=== PATIENT | male | born 1950 | race Caucasian/White ===

== ENCOUNTER → 2017-06-25 | Outpatient (CLI) | payer MEDICARE, BC | END | disposition home or self-care (01) | LOC: PMGWOUND 10:34 | PROVIDERS: ATTEND Emergency Medicine Undersea and Hyperbaric Medicine | DX: S80.821D Blister (nonthermal), right lower leg, subsequent encounter (principal); L13.9 Bullous disorder, unspecified; K21.9 Gastro-esophageal reflux disease without esophagitis; E78.5 Hyperlipidemia, unspecified; E03.9 Hypothyroidism, unspecified; J44.9 Chronic obstructive pulmonary disease, unspecified; E05.90 Thyrotoxicosis, unspecified without thyrotoxic crisis or storm; I10 Essential (primary) hypertension; Z72.89 Other problems related to lifestyle; Z87.891 Personal history of nicotine dependence; X58.XXXD Exposure to other specified factors, subsequent encounter | CPT/HCPCS: 97597; 97598 ==

== ENCOUNTER → 2017-07-02 | Outpatient (CLI) | payer MEDICARE, BC | END | disposition home or self-care (01) | LOC: PMGWOUND 10:46 | PROVIDERS: ATTEND Preventive Medicine Undersea and Hyperbaric Medicine | DX: S80.821D Blister (nonthermal), right lower leg, subsequent encounter (principal); L12.0 Bullous pemphigoid; J44.9 Chronic obstructive pulmonary disease, unspecified; I10 Essential (primary) hypertension; K21.9 Gastro-esophageal reflux disease without esophagitis; E78.5 Hyperlipidemia, unspecified; E03.9 Hypothyroidism, unspecified; Z72.89 Other problems related to lifestyle; Z87.891 Personal history of nicotine dependence; X58.XXXD Exposure to other specified factors, subsequent encounter | CPT/HCPCS: 29581; 97597; 97598 ==

== ENCOUNTER → 2017-07-23 | Outpatient (CLI) | payer MEDICARE, BC | END | disposition home or self-care (01) | LOC: PMGWOUND 10:38 | PROVIDERS: ATTEND Preventive Medicine Undersea and Hyperbaric Medicine | DX: S80.821D Blister (nonthermal), right lower leg, subsequent encounter (principal); L12.0 Bullous pemphigoid; J44.9 Chronic obstructive pulmonary disease, unspecified; I10 Essential (primary) hypertension; K21.9 Gastro-esophageal reflux disease without esophagitis; E78.5 Hyperlipidemia, unspecified; E03.9 Hypothyroidism, unspecified; E05.90 Thyrotoxicosis, unspecified without thyrotoxic crisis or storm; Z72.89 Other problems related to lifestyle; Z87.891 Personal history of nicotine dependence; X58.XXXD Exposure to other specified factors, subsequent encounter | CPT/HCPCS: 97597; 97598 ==

== ENCOUNTER → 2017-07-28 | Outpatient (CLI) | payer MEDICARE, BC | END | disposition home or self-care (01) | LOC: PMGWOUND 11:30 | PROVIDERS: ATTEND Preventive Medicine Undersea and Hyperbaric Medicine | DX: S80.821D Blister (nonthermal), right lower leg, subsequent encounter (principal); L12.0 Bullous pemphigoid; J44.9 Chronic obstructive pulmonary disease, unspecified; I10 Essential (primary) hypertension; K21.9 Gastro-esophageal reflux disease without esophagitis; E78.5 Hyperlipidemia, unspecified; E03.9 Hypothyroidism, unspecified; Z72.89 Other problems related to lifestyle; Z87.891 Personal history of nicotine dependence; X58.XXXD Exposure to other specified factors, subsequent encounter | CPT/HCPCS: 29581 ==

== ENCOUNTER → 2017-08-04 | Outpatient (CLI) | payer MEDICARE, BC | END | disposition home or self-care (01) | LOC: PMGWOUND 10:22 | PROVIDERS: ATTEND Preventive Medicine Undersea and Hyperbaric Medicine | DX: S80.821D Blister (nonthermal), right lower leg, subsequent encounter (principal); L12.0 Bullous pemphigoid; J44.9 Chronic obstructive pulmonary disease, unspecified; I10 Essential (primary) hypertension; K21.9 Gastro-esophageal reflux disease without esophagitis; E78.5 Hyperlipidemia, unspecified; E03.9 Hypothyroidism, unspecified; Z87.891 Personal history of nicotine dependence; Z72.89 Other problems related to lifestyle; X58.XXXD Exposure to other specified factors, subsequent encounter | CPT/HCPCS: 29581 ==

== ENCOUNTER → 2017-08-11 | Outpatient (CLI) | payer MEDICARE, BC | END | disposition home or self-care (01) | LOC: PMGWOUND 10:16 | PROVIDERS: ATTEND Preventive Medicine Undersea and Hyperbaric Medicine | DX: S80.821D Blister (nonthermal), right lower leg, subsequent encounter (principal); L12.0 Bullous pemphigoid; K21.9 Gastro-esophageal reflux disease without esophagitis; E78.5 Hyperlipidemia, unspecified; E03.9 Hypothyroidism, unspecified; J44.9 Chronic obstructive pulmonary disease, unspecified; I10 Essential (primary) hypertension; Z87.891 Personal history of nicotine dependence; Z72.89 Other problems related to lifestyle; X58.XXXD Exposure to other specified factors, subsequent encounter | CPT/HCPCS: 29581 ==

== ENCOUNTER → 2017-08-18 | Outpatient (CLI) | payer MEDICARE, BC | END | disposition home or self-care (01) | LOC: PMGWOUND 10:18 | PROVIDERS: ATTEND Preventive Medicine Undersea and Hyperbaric Medicine | DX: S80.821D Blister (nonthermal), right lower leg, subsequent encounter (principal); L12.0 Bullous pemphigoid; K21.9 Gastro-esophageal reflux disease without esophagitis; E78.5 Hyperlipidemia, unspecified; E03.9 Hypothyroidism, unspecified; J44.9 Chronic obstructive pulmonary disease, unspecified; I10 Essential (primary) hypertension; Z87.891 Personal history of nicotine dependence; Z72.89 Other problems related to lifestyle; X58.XXXD Exposure to other specified factors, subsequent encounter | CPT/HCPCS: 29581 ==

== ENCOUNTER → 2017-08-25 | Outpatient (CLI) | payer MEDICARE, BC | END | disposition home or self-care (01) | LOC: PMGWOUND 10:32 | PROVIDERS: ATTEND Preventive Medicine Undersea and Hyperbaric Medicine | DX: I87.311 Chronic venous hypertension (idiopathic) with ulcer of right lower extremity (principal); L97.811 Non-pressure chronic ulcer of other part of right lower leg limited to breakdown of skin; L12.0 Bullous pemphigoid; K21.9 Gastro-esophageal reflux disease without esophagitis; E78.5 Hyperlipidemia, unspecified; E03.9 Hypothyroidism, unspecified; J44.9 Chronic obstructive pulmonary disease, unspecified; Z87.891 Personal history of nicotine dependence; Z72.89 Other problems related to lifestyle | CPT/HCPCS: 29581 ==

== ENCOUNTER → 2017-09-08 | Outpatient (CLI) | payer MEDICARE, BC | END | disposition home or self-care (01) | LOC: PMGWOUND 10:18 | DX: I87.311 Chronic venous hypertension (idiopathic) with ulcer of right lower extremity (principal); L97.811 Non-pressure chronic ulcer of other part of right lower leg limited to breakdown of skin; L12.0 Bullous pemphigoid; J44.9 Chronic obstructive pulmonary disease, unspecified; K21.9 Gastro-esophageal reflux disease without esophagitis; E78.5 Hyperlipidemia, unspecified; E03.9 Hypothyroidism, unspecified; Z87.891 Personal history of nicotine dependence; Z72.89 Other problems related to lifestyle | CPT/HCPCS: 29581 ==

== ENCOUNTER → 2017-09-15 | Outpatient (CLI) | payer MEDICARE, BC | END | disposition home or self-care (01) | LOC: PMGWOUND 10:09 | DX: I87.311 Chronic venous hypertension (idiopathic) with ulcer of right lower extremity (principal); L97.811 Non-pressure chronic ulcer of other part of right lower leg limited to breakdown of skin; L12.0 Bullous pemphigoid; K21.9 Gastro-esophageal reflux disease without esophagitis; E78.5 Hyperlipidemia, unspecified; E03.9 Hypothyroidism, unspecified; J44.9 Chronic obstructive pulmonary disease, unspecified; Z87.891 Personal history of nicotine dependence; Z72.89 Other problems related to lifestyle | CPT/HCPCS: 29581; 97597; 97598 ==

== ENCOUNTER → 2017-09-22 | Outpatient (CLI) | payer MEDICARE, BC | END | disposition home or self-care (01) | LOC: PMGWOUND 10:45 | DX: I87.311 Chronic venous hypertension (idiopathic) with ulcer of right lower extremity (principal); L97.811 Non-pressure chronic ulcer of other part of right lower leg limited to breakdown of skin; L12.0 Bullous pemphigoid; K21.9 Gastro-esophageal reflux disease without esophagitis; E78.5 Hyperlipidemia, unspecified; E03.9 Hypothyroidism, unspecified; J44.9 Chronic obstructive pulmonary disease, unspecified; Z87.891 Personal history of nicotine dependence; Z72.89 Other problems related to lifestyle | CPT/HCPCS: 29581 ==

== ENCOUNTER → 2017-09-29 | Outpatient (CLI) | payer MEDICARE, BC | END | disposition home or self-care (01) | LOC: PMGWOUND 10:12 | DX: I87.311 Chronic venous hypertension (idiopathic) with ulcer of right lower extremity (principal); L97.811 Non-pressure chronic ulcer of other part of right lower leg limited to breakdown of skin; L12.0 Bullous pemphigoid; K21.9 Gastro-esophageal reflux disease without esophagitis; E78.5 Hyperlipidemia, unspecified; E03.9 Hypothyroidism, unspecified; J44.9 Chronic obstructive pulmonary disease, unspecified; Z87.891 Personal history of nicotine dependence; Z72.89 Other problems related to lifestyle | CPT/HCPCS: 29581; 97597; 97598 ==

== ENCOUNTER → 2017-10-06 | Outpatient (CLI) | payer MEDICARE, BC | END | disposition home or self-care (01) | LOC: PMGWOUND 10:13 | DX: I87.311 Chronic venous hypertension (idiopathic) with ulcer of right lower extremity (principal); L97.811 Non-pressure chronic ulcer of other part of right lower leg limited to breakdown of skin; I12.0 Hypertensive chronic kidney disease with stage 5 chronic kidney disease or end stage renal disease; K21.9 Gastro-esophageal reflux disease without esophagitis; E78.5 Hyperlipidemia, unspecified; E03.9 Hypothyroidism, unspecified; J44.9 Chronic obstructive pulmonary disease, unspecified; Z87.891 Personal history of nicotine dependence; Z72.89 Other problems related to lifestyle | CPT/HCPCS: 29581 ==

== ENCOUNTER → 2017-10-11 | Outpatient (CLI) | payer MEDICARE, BC | END | disposition home or self-care (01) | LOC: PMGWOUND 11:47 | DX: I87.311 Chronic venous hypertension (idiopathic) with ulcer of right lower extremity (principal); L97.811 Non-pressure chronic ulcer of other part of right lower leg limited to breakdown of skin; I12.0 Hypertensive chronic kidney disease with stage 5 chronic kidney disease or end stage renal disease; N18.6 End stage renal disease; K21.9 Gastro-esophageal reflux disease without esophagitis; E78.5 Hyperlipidemia, unspecified; E03.9 Hypothyroidism, unspecified; J44.9 Chronic obstructive pulmonary disease, unspecified; Z87.891 Personal history of nicotine dependence; Z72.89 Other problems related to lifestyle | CPT/HCPCS: 29581; 97597; 97598 ==

== ENCOUNTER → 2017-10-15 | Outpatient (CLI) | payer MEDICARE, BC | END | disposition home or self-care (01) | LOC: PMGWOUND 11:15 | DX: I87.311 Chronic venous hypertension (idiopathic) with ulcer of right lower extremity (principal); L97.811 Non-pressure chronic ulcer of other part of right lower leg limited to breakdown of skin; I12.0 Hypertensive chronic kidney disease with stage 5 chronic kidney disease or end stage renal disease; N18.6 End stage renal disease; K21.9 Gastro-esophageal reflux disease without esophagitis; E78.5 Hyperlipidemia, unspecified; E03.9 Hypothyroidism, unspecified; J44.9 Chronic obstructive pulmonary disease, unspecified; Z87.891 Personal history of nicotine dependence; Z72.89 Other problems related to lifestyle | CPT/HCPCS: 29581; 97597 ==

== ENCOUNTER → 2017-10-22 | Outpatient (CLI) | payer MEDICARE, BC | END | disposition home or self-care (01) | LOC: PMGWOUND 09:38 | DX: I87.311 Chronic venous hypertension (idiopathic) with ulcer of right lower extremity (principal); L97.811 Non-pressure chronic ulcer of other part of right lower leg limited to breakdown of skin; I12.0 Hypertensive chronic kidney disease with stage 5 chronic kidney disease or end stage renal disease; N18.6 End stage renal disease; L12.0 Bullous pemphigoid; K21.9 Gastro-esophageal reflux disease without esophagitis; E78.5 Hyperlipidemia, unspecified; E03.9 Hypothyroidism, unspecified; J44.9 Chronic obstructive pulmonary disease, unspecified; Z87.891 Personal history of nicotine dependence; Z72.89 Other problems related to lifestyle | CPT/HCPCS: 29581; 97597; 97598 ==

== ENCOUNTER → 2017-10-29 | Outpatient (CLI) | payer MEDICARE, BC | END | disposition home or self-care (01) | LOC: PMGWOUND 10:45 | DX: I87.311 Chronic venous hypertension (idiopathic) with ulcer of right lower extremity (principal); L97.811 Non-pressure chronic ulcer of other part of right lower leg limited to breakdown of skin; I12.0 Hypertensive chronic kidney disease with stage 5 chronic kidney disease or end stage renal disease; N18.6 End stage renal disease; L12.0 Bullous pemphigoid; K21.9 Gastro-esophageal reflux disease without esophagitis; E78.5 Hyperlipidemia, unspecified; E03.9 Hypothyroidism, unspecified; J44.9 Chronic obstructive pulmonary disease, unspecified; Z87.891 Personal history of nicotine dependence; Z72.89 Other problems related to lifestyle | CPT/HCPCS: 29581 ==

== ENCOUNTER → 2017-11-05 | Outpatient (CLI) | payer MEDICARE, BC | END | disposition home or self-care (01) | LOC: PMGWOUND 08:38 | DX: I87.311 Chronic venous hypertension (idiopathic) with ulcer of right lower extremity (principal); L97.811 Non-pressure chronic ulcer of other part of right lower leg limited to breakdown of skin; I12.0 Hypertensive chronic kidney disease with stage 5 chronic kidney disease or end stage renal disease; N18.6 End stage renal disease; L12.0 Bullous pemphigoid; K21.9 Gastro-esophageal reflux disease without esophagitis; E78.5 Hyperlipidemia, unspecified; E03.9 Hypothyroidism, unspecified; J44.9 Chronic obstructive pulmonary disease, unspecified; Z87.891 Personal history of nicotine dependence; Z72.89 Other problems related to lifestyle | CPT/HCPCS: 29581 ==

== ENCOUNTER → 2017-11-12 | Outpatient (CLI) | payer MEDICARE, BC | END | disposition home or self-care (01) | LOC: PMGWOUND 08:40 | DX: I87.311 Chronic venous hypertension (idiopathic) with ulcer of right lower extremity (principal); E11.622 Type 2 diabetes mellitus with other skin ulcer; L97.811 Non-pressure chronic ulcer of other part of right lower leg limited to breakdown of skin; L12.0 Bullous pemphigoid; J44.9 Chronic obstructive pulmonary disease, unspecified; K21.9 Gastro-esophageal reflux disease without esophagitis; E11.22 Type 2 diabetes mellitus with diabetic chronic kidney disease; I12.0 Hypertensive chronic kidney disease with stage 5 chronic kidney disease or end stage renal disease; N18.6 End stage renal disease; E78.5 Hyperlipidemia, unspecified; E03.9 Hypothyroidism, unspecified; Z87.891 Personal history of nicotine dependence; Z72.89 Other problems related to lifestyle | CPT/HCPCS: 29581 ==

== ENCOUNTER → 2017-11-19 | Outpatient (CLI) | payer MEDICARE, BC | END | disposition home or self-care (01) | LOC: PMGWOUND 09:47 | DX: I87.311 Chronic venous hypertension (idiopathic) with ulcer of right lower extremity (principal); E11.622 Type 2 diabetes mellitus with other skin ulcer; L97.811 Non-pressure chronic ulcer of other part of right lower leg limited to breakdown of skin; L12.0 Bullous pemphigoid; J44.9 Chronic obstructive pulmonary disease, unspecified; K21.9 Gastro-esophageal reflux disease without esophagitis; E11.22 Type 2 diabetes mellitus with diabetic chronic kidney disease; I12.0 Hypertensive chronic kidney disease with stage 5 chronic kidney disease or end stage renal disease; N18.6 End stage renal disease; E78.5 Hyperlipidemia, unspecified; E03.9 Hypothyroidism, unspecified; Z87.891 Personal history of nicotine dependence; Z72.89 Other problems related to lifestyle; Z99.2 Dependence on renal dialysis | CPT/HCPCS: 29581 ==

== ENCOUNTER → 2017-11-26 | Outpatient (CLI) | payer MEDICARE, BC | END | disposition home or self-care (01) | LOC: PMGWOUND 10:38 | DX: I87.311 Chronic venous hypertension (idiopathic) with ulcer of right lower extremity (principal); E11.622 Type 2 diabetes mellitus with other skin ulcer; L97.811 Non-pressure chronic ulcer of other part of right lower leg limited to breakdown of skin; L12.0 Bullous pemphigoid; J44.9 Chronic obstructive pulmonary disease, unspecified; K21.9 Gastro-esophageal reflux disease without esophagitis; E11.22 Type 2 diabetes mellitus with diabetic chronic kidney disease; I12.0 Hypertensive chronic kidney disease with stage 5 chronic kidney disease or end stage renal disease; N18.6 End stage renal disease; E78.5 Hyperlipidemia, unspecified; E03.9 Hypothyroidism, unspecified; Z87.891 Personal history of nicotine dependence; Z99.2 Dependence on renal dialysis | CPT/HCPCS: 29581 ==

== ENCOUNTER → 2017-12-03 | Outpatient (CLI) | payer MEDICARE | END | disposition home or self-care (01) | LOC: PMGWOUND 11:03 | DX: I87.311 Chronic venous hypertension (idiopathic) with ulcer of right lower extremity (principal); E11.622 Type 2 diabetes mellitus with other skin ulcer; L97.811 Non-pressure chronic ulcer of other part of right lower leg limited to breakdown of skin; L12.0 Bullous pemphigoid; J44.9 Chronic obstructive pulmonary disease, unspecified; K21.9 Gastro-esophageal reflux disease without esophagitis; E11.22 Type 2 diabetes mellitus with diabetic chronic kidney disease; I12.0 Hypertensive chronic kidney disease with stage 5 chronic kidney disease or end stage renal disease; N18.6 End stage renal disease; E78.5 Hyperlipidemia, unspecified; E03.9 Hypothyroidism, unspecified; Z87.891 Personal history of nicotine dependence; Z99.2 Dependence on renal dialysis | CPT/HCPCS: 29581; 97597; 97598 ==

== ENCOUNTER → 2017-12-10 | Outpatient (CLI) | payer MEDICARE | END | disposition home or self-care (01) | LOC: PMGWOUND 11:17 | DX: I87.311 Chronic venous hypertension (idiopathic) with ulcer of right lower extremity (principal); L97.811 Non-pressure chronic ulcer of other part of right lower leg limited to breakdown of skin; L12.0 Bullous pemphigoid; K21.9 Gastro-esophageal reflux disease without esophagitis; E78.5 Hyperlipidemia, unspecified; E03.9 Hypothyroidism, unspecified; J44.9 Chronic obstructive pulmonary disease, unspecified; Z87.891 Personal history of nicotine dependence; E11.22 Type 2 diabetes mellitus with diabetic chronic kidney disease; I12.0 Hypertensive chronic kidney disease with stage 5 chronic kidney disease or end stage renal disease; N18.6 End stage renal disease; Z99.2 Dependence on renal dialysis | CPT/HCPCS: 29581; 97597; 97598 ==

== ENCOUNTER → 2017-12-17 | Outpatient (CLI) | payer MEDICARE | END | disposition home or self-care (01) | LOC: PMGWOUND 10:43 | DX: I87.311 Chronic venous hypertension (idiopathic) with ulcer of right lower extremity (principal); E11.622 Type 2 diabetes mellitus with other skin ulcer; L97.811 Non-pressure chronic ulcer of other part of right lower leg limited to breakdown of skin; L12.0 Bullous pemphigoid; J44.9 Chronic obstructive pulmonary disease, unspecified; K21.9 Gastro-esophageal reflux disease without esophagitis; E11.22 Type 2 diabetes mellitus with diabetic chronic kidney disease; I12.0 Hypertensive chronic kidney disease with stage 5 chronic kidney disease or end stage renal disease; N18.6 End stage renal disease; E78.5 Hyperlipidemia, unspecified; E03.9 Hypothyroidism, unspecified; Z87.891 Personal history of nicotine dependence; Z99.2 Dependence on renal dialysis | CPT/HCPCS: 29581 ==

== ENCOUNTER → 2017-12-24 | Outpatient (CLI) | payer MEDICARE | END | disposition home or self-care (01) | LOC: PMGWOUND 10:15 | DX: I87.311 Chronic venous hypertension (idiopathic) with ulcer of right lower extremity (principal); E11.622 Type 2 diabetes mellitus with other skin ulcer; L97.811 Non-pressure chronic ulcer of other part of right lower leg limited to breakdown of skin; L12.0 Bullous pemphigoid; J44.9 Chronic obstructive pulmonary disease, unspecified; K21.9 Gastro-esophageal reflux disease without esophagitis; E11.22 Type 2 diabetes mellitus with diabetic chronic kidney disease; I12.0 Hypertensive chronic kidney disease with stage 5 chronic kidney disease or end stage renal disease; N18.6 End stage renal disease; E78.5 Hyperlipidemia, unspecified; E03.9 Hypothyroidism, unspecified; Z87.891 Personal history of nicotine dependence; Z99.2 Dependence on renal dialysis | CPT/HCPCS: 97597; 97598 ==

== ENCOUNTER → 2018-01-21 | Outpatient (CLI) | payer MEDICARE | END | disposition home or self-care (01) | LOC: PMGWOUND 10:10 | DX: I87.311 Chronic venous hypertension (idiopathic) with ulcer of right lower extremity (principal); E11.622 Type 2 diabetes mellitus with other skin ulcer; L97.811 Non-pressure chronic ulcer of other part of right lower leg limited to breakdown of skin; L12.0 Bullous pemphigoid; J44.9 Chronic obstructive pulmonary disease, unspecified; K21.9 Gastro-esophageal reflux disease without esophagitis; E11.22 Type 2 diabetes mellitus with diabetic chronic kidney disease; I12.0 Hypertensive chronic kidney disease with stage 5 chronic kidney disease or end stage renal disease; N18.6 End stage renal disease; E78.5 Hyperlipidemia, unspecified; E03.9 Hypothyroidism, unspecified; Z87.891 Personal history of nicotine dependence; Z99.2 Dependence on renal dialysis | CPT/HCPCS: 99214 ==

== ENCOUNTER → 2018-05-06 | Outpatient (CLI) | payer MEDICARE | END | disposition home or self-care (01) | LOC: PMGWOUND 10:47 | PROVIDERS: ATTEND Preventive Medicine Undersea and Hyperbaric Medicine | DX: E11.622 Type 2 diabetes mellitus with other skin ulcer (principal); I87.311 Chronic venous hypertension (idiopathic) with ulcer of right lower extremity; L97.811 Non-pressure chronic ulcer of other part of right lower leg limited to breakdown of skin; I12.0 Hypertensive chronic kidney disease with stage 5 chronic kidney disease or end stage renal disease; E11.22 Type 2 diabetes mellitus with diabetic chronic kidney disease; N18.6 End stage renal disease; K21.9 Gastro-esophageal reflux disease without esophagitis; E78.5 Hyperlipidemia, unspecified; J44.9 Chronic obstructive pulmonary disease, unspecified; E03.9 Hypothyroidism, unspecified; E05.90 Thyrotoxicosis, unspecified without thyrotoxic crisis or storm; Z99.2 Dependence on renal dialysis; Z87.891 Personal history of nicotine dependence | CPT/HCPCS: 97597; 97598 ==

== ENCOUNTER → 2018-10-28 | Outpatient (CLI) | payer MEDICARE ==
[2018-07-14 07:00] VITALS: BP 147/69
[~2018-10-28] MED LIST: LEVO100T5 PO; LISI10TA2 PO; PRED15SO24 PO
== END | disposition home or self-care (01) ==
LOC: PMGWOUND 10:07
PROVIDERS: ATTEND Preventive Medicine Undersea and Hyperbaric Medicine
DX: E11.622 Type 2 diabetes mellitus with other skin ulcer (principal); I87.311 Chronic venous hypertension (idiopathic) with ulcer of right lower extremity; L97.811 Non-pressure chronic ulcer of other part of right lower leg limited to breakdown of skin; L12.0 Bullous pemphigoid; E11.42 Type 2 diabetes mellitus with diabetic polyneuropathy; I13.11 Hypertensive heart and chronic kidney disease without heart failure, with stage 5 chronic kidney disease, or end stage renal disease; E11.22 Type 2 diabetes mellitus with diabetic chronic kidney disease; N18.6 End stage renal disease; E03.9 Hypothyroidism, unspecified; E78.5 Hyperlipidemia, unspecified; J44.9 Chronic obstructive pulmonary disease, unspecified; K21.9 Gastro-esophageal reflux disease without esophagitis; Z99.2 Dependence on renal dialysis; Z87.891 Personal history of nicotine dependence
CPT/HCPCS: 97597; 97598

== ENCOUNTER → 2018-11-04 | Outpatient (CLI) | payer MEDICARE ==
[2018-07-14 07:00] VITALS: BP 147/69
== END | disposition home or self-care (01) ==
LOC: PMGWOUND 09:59
PROVIDERS: ATTEND Preventive Medicine Undersea and Hyperbaric Medicine
DX: E11.622 Type 2 diabetes mellitus with other skin ulcer (principal); I87.313 Chronic venous hypertension (idiopathic) with ulcer of bilateral lower extremity; L97.811 Non-pressure chronic ulcer of other part of right lower leg limited to breakdown of skin; L97.821 Non-pressure chronic ulcer of other part of left lower leg limited to breakdown of skin; L12.0 Bullous pemphigoid; E11.42 Type 2 diabetes mellitus with diabetic polyneuropathy; I12.0 Hypertensive chronic kidney disease with stage 5 chronic kidney disease or end stage renal disease; E11.22 Type 2 diabetes mellitus with diabetic chronic kidney disease; N18.6 End stage renal disease; E78.5 Hyperlipidemia, unspecified; E03.9 Hypothyroidism, unspecified; J44.9 Chronic obstructive pulmonary disease, unspecified; K21.9 Gastro-esophageal reflux disease without esophagitis; Z99.2 Dependence on renal dialysis; Z87.891 Personal history of nicotine dependence
CPT/HCPCS: 97597; 97598

== ENCOUNTER → 2018-11-10 | Outpatient (CLI) | payer MEDICARE ==
[2018-07-14 07:00] VITALS: BP 147/69
== END | disposition home or self-care (01) ==
LOC: PMGWOUND 12:32
PROVIDERS: ATTEND Emergency Medicine Undersea and Hyperbaric Medicine
DX: E11.622 Type 2 diabetes mellitus with other skin ulcer (principal); I87.313 Chronic venous hypertension (idiopathic) with ulcer of bilateral lower extremity; L97.821 Non-pressure chronic ulcer of other part of left lower leg limited to breakdown of skin; L97.811 Non-pressure chronic ulcer of other part of right lower leg limited to breakdown of skin; L12.0 Bullous pemphigoid; E03.9 Hypothyroidism, unspecified; E78.5 Hyperlipidemia, unspecified; J44.9 Chronic obstructive pulmonary disease, unspecified; K21.9 Gastro-esophageal reflux disease without esophagitis; Z87.891 Personal history of nicotine dependence
CPT/HCPCS: 99214; G0463

== ENCOUNTER → 2018-11-15 | Outpatient (CLI) | payer MEDICARE ==
[2018-07-14 07:00] VITALS: BP 147/69
--- NOTE | 2018-11-15 16:44 | RAD ---
Bilateral lower extremity arterial duplex ultrasound study without comparison for nonhealing wounds of the bilateral lower extremities, resting leg pain. Technique an findings: Real-time grayscale and color and spectral Doppler evaluation of the arteries of bilateral lower extremities is performed. In the right lower extremity, there is triphasic flow within the right common femoral, deep femoral, superficial femoral, popliteal, and proximal posterior tibial arteries. No focal velocity elevations are identified to suggest limited increase significant stenosis, though there does appear to be mild to moderate multifocal atherosclerosis. Within the distal posterior tibial artery, flow becomes monophasic. The peroneal artery is not well seen. Anterior tibial and dorsalis pedis arteries are patent, with triphasic flow in the right anterior tibial and monophasic flow within the dorsalis pedis artery. On the left, there is triphasic flow within the left common femoral, superficial femoral, popliteal, and proximal posterior tibial arteries, with biphasic flow within the deep femoral artery. Once again no focal velocity elevations are identified to suggest hemodynamically significant stenosis, though there is a symmetrical appearing pattern of mild to moderate multifocal atherosclerosis. There is abrupt transition to monophasic flow within the posterior tibial artery distally, once again with nonvisualization of the peroneal artery. Additionally, there is marked elevation of the distal posterior tibial artery velocity to 145 cm's per second, relative to proximal velocity of 61 cc/s. This suggests hemodynamically significant mid posterior tibial artery stenosis. Triphasic flow is seen within patent anterior tibial and dorsalis pedis arteries. IMPRESSION: 1. Bilateral symmetrical distribution of multifocal atherosclerosis, with hemodynamically significant stenoses suspected within the mid to distal bilateral posterior tibial arteries and peroneal arteries. Mild to moderate multifocal proximal atherosclerosis is also present, without Doppler findings to suggest hemodynamically significant inflow disease. Findings were discussed with Dr. Sharma immediately upon interpretation of the examination Electronically signed by: Jerardo Nunez MD (11/15/2018 4:41 PM) [facility]
--- NOTE | 2018-11-15 16:46 | RAD ---
Bilateral lower extremity ABIs without comparison for bilateral lower extremity nonhealing wounds. TECHNIQUE AND FINDINGS: Bilateral lower extremity ABIs are performed. The CHARLENE on the right is 1.19 and on the left 1.22. IMPRESSION: 1. Normal bilateral ABIs. Electronically signed by: Jerardo Nunez MD (11/15/2018 4:43 PM) [facility]
== END | disposition home or self-care (01) ==
LOC: US 12:55
PROVIDERS: ATTEND Preventive Medicine Undersea and Hyperbaric Medicine
DX: I70.293 Other atherosclerosis of native arteries of extremities, bilateral legs (principal); S81.802D Unspecified open wound, left lower leg, subsequent encounter; S81.801D Unspecified open wound, right lower leg, subsequent encounter; X58.XXXD Exposure to other specified factors, subsequent encounter
CPT/HCPCS: 93922; 93925

== ENCOUNTER → 2018-11-17 | Outpatient (CLI) | payer MEDICARE ==
[2018-07-14 07:00] VITALS: BP 147/69
[2018-11-17 13:15] LABS: CREATININE 1.4 mg/dL (0.7-1.3); GFR 50.1; POTASSIUM 4.1 mmol/L (3.5-5.1)
== END | disposition home or self-care (01) ==
LOC: PMGWOUND 11:42
PROVIDERS: ATTEND Emergency Medicine Undersea and Hyperbaric Medicine
DX: E11.622 Type 2 diabetes mellitus with other skin ulcer (principal); I87.313 Chronic venous hypertension (idiopathic) with ulcer of bilateral lower extremity; L97.821 Non-pressure chronic ulcer of other part of left lower leg limited to breakdown of skin; L97.811 Non-pressure chronic ulcer of other part of right lower leg limited to breakdown of skin; E11.42 Type 2 diabetes mellitus with diabetic polyneuropathy; I13.11 Hypertensive heart and chronic kidney disease without heart failure, with stage 5 chronic kidney disease, or end stage renal disease; E11.22 Type 2 diabetes mellitus with diabetic chronic kidney disease; N18.6 End stage renal disease; L12.0 Bullous pemphigoid; E78.5 Hyperlipidemia, unspecified; E03.9 Hypothyroidism, unspecified; J44.9 Chronic obstructive pulmonary disease, unspecified; K21.9 Gastro-esophageal reflux disease without esophagitis; Z99.2 Dependence on renal dialysis; Z87.891 Personal history of nicotine dependence
CPT/HCPCS: 36415; 80048; 99214; G0463

== ENCOUNTER → 2018-11-28 | Outpatient (CLI) | payer MEDICARE ==
[2018-07-14 07:00] VITALS: BP 147/69
== END | disposition home or self-care (01) ==
LOC: PMGWOUND 11:46
PROVIDERS: ATTEND Emergency Medicine Undersea and Hyperbaric Medicine
DX: E11.622 Type 2 diabetes mellitus with other skin ulcer (principal); I87.313 Chronic venous hypertension (idiopathic) with ulcer of bilateral lower extremity; L97.811 Non-pressure chronic ulcer of other part of right lower leg limited to breakdown of skin; L97.821 Non-pressure chronic ulcer of other part of left lower leg limited to breakdown of skin; L12.0 Bullous pemphigoid; E11.42 Type 2 diabetes mellitus with diabetic polyneuropathy; I13.11 Hypertensive heart and chronic kidney disease without heart failure, with stage 5 chronic kidney disease, or end stage renal disease; E11.22 Type 2 diabetes mellitus with diabetic chronic kidney disease; N18.6 End stage renal disease; E78.5 Hyperlipidemia, unspecified; E03.9 Hypothyroidism, unspecified; J44.9 Chronic obstructive pulmonary disease, unspecified; K21.9 Gastro-esophageal reflux disease without esophagitis; Z87.891 Personal history of nicotine dependence; Z99.2 Dependence on renal dialysis
CPT/HCPCS: 99215; G0463

== ENCOUNTER → 2019-01-24 | Outpatient (CLI) | payer MEDICARE ==
[2018-07-14 07:00] VITALS: BP 147/69
--- NOTE | 2019-01-24 16:08 | RAD ---
Bilateral lower extremity venous insufficiency ultrasound exam, 01/24/2019: HISTORY: Leg swelling, chronic right calf and ankle ulcer Duplex evaluation of the saphenous veins in both lower extremities was performed including grayscale, color-flow and spectral Doppler analysis. On the right, the greater saphenous vein is patent and demonstrates significant reflux throughout its course. At the saphenofemoral junction level it measures 8.3 mm and demonstrates a reflux time of 2.3 seconds. Just inferior to this level the reflux time was 3.1 seconds. The right lesser saphenous vein is patent and does not demonstrate significant reflux. On the left, the greater saphenous vein is patent and demonstrates significant reflux throughout its course. Near the saphenofemoral junction level measures 7.3 mm and demonstrates a reflux time of 2.2 seconds. Just inferior to this level reflux time is 3.1 seconds. The left lesser saphenous vein is patent and demonstrates significant reflux. Superiorly in the calf it measures 3.9 cm and demonstrates a reflux time of 1.5 seconds. IMPRESSION: Significant reflux is identified in both greater saphenous veins and in the left lesser saphenous vein as described above. Electronically signed by: Jose R Pinedo MD (01/24/2019 4:05 PM) [facility]
== END | disposition home or self-care (01) ==
LOC: US 13:40
PROVIDERS: ATTEND Emergency Medicine Undersea and Hyperbaric Medicine
DX: I87.2 Venous insufficiency (chronic) (peripheral) (principal); L97.211 Non-pressure chronic ulcer of right calf limited to breakdown of skin; L97.311 Non-pressure chronic ulcer of right ankle limited to breakdown of skin; I87.311 Chronic venous hypertension (idiopathic) with ulcer of right lower extremity
CPT/HCPCS: 93970

== ENCOUNTER 2019-05-20 16:13 | Emergency (ER) | payer MEDICARE ==
[~2019-05-20] VITALS: Ht 177.8 cm; Wt 96.6 kg
[2019-05-20] MEDS ORDERED: NEOMY/BACITR/POLYMYXIN OINT PACKET. TP ONE (16:30)
--- NOTE | 2019-05-20 16:40 | PHYS DOC ---
Past Medical History Past Medical History: Hypertension, Hypothyroid, Other Additional Past Medical Histor: bullous pemphigoid, patient poor historian (MIREYA LUND APRN) Past Surgical History: No Surgical History Additional Past Surgical Histo: PATIENT POOR HISTORIAN (MIREYA LUND APRN) Alcohol Use: None Drug Use: None (MIREYA LUND APRN) Attending Signature I have participated in the care of this patient and I have reviewed and agree with all pertinent clinical information above including history, exam, and recommendations. (LILY BALTAZAR MD) Adult General Chief Complaint Chief Complaint: MECHANICAL FALL HPI HPI Patient is a 68 year old female with history of hypertension, hypothyroidism, who presents to the ED today complaining of 5 out of 10 right knee pain, bilateral elbow pain and right hand pain that began today after he got his deck and fell. Patient denies any loss of consciousness. He states the pain is worse on range of motion to the affected areas describes the pain as sharp and intermittent. He states immobilization has been relieving most of the pain. Patient denies hitting his head on the ground when he fell. Denies being on any blood thinners, he states he has chronic wounds on bilateral lower extremities that he follows up with the wound clinic (MIREYA LUND APRN) Review of Systems Review of Systems Constitutional: Denies fever or chills [] Eyes: Denies change in visual acuity, redness, or eye pain [] HENT: Denies nasal congestion or sore throat [] Respiratory: Denies cough or shortness of breath [] Cardiovascular: No additional information not addressed in HPI [] GI: Denies abdominal pain, nausea, vomiting, bloody stools or diarrhea [] : Denies dysuria or hematuria [] Musculoskeletal: Reports bilateral elbow pain, right hand pain, right knee pain, denies any back pain. Integument: Denies rash or skin lesions [] Neurologic: Denies headache, focal weakness or sensory changes [] All other systems were reviewed and found to be within normal limits, except as documented in this note. (MIREYA LUND APRN) Current Medications Current Medications Current Medications Medications (Trade) Dose Ordered Sig/Sharon Start Time Stop Time Status Last Admin Dose Admin Neomycin/ Polymyxin/ Bacitracin (Triple Antibiotic Ointment) 4 pkt 1X ONCE 05/20/19 16:30 05/20/19 16:36 DC 05/20/19 17:01 4 PKT (LILY BALTAZAR MD) Allergies Allergies Allergies Coded Allergies Type Severity Reaction Last Updated Verified acetaminophen Allergy Intermediate 07/13/18 Yes morphine Allergy Intermediate 07/13/18 Yes shellfish derived Allergy Intermediate 07/13/18 Yes (LILY BALTAZAR MD) Physical Exam Physical Exam Constitutional: Well developed, well nourished, no acute distress, non-toxic appearance. [] HENT: Normocephalic, atraumatic, bilateral external ears normal, oropharynx moist, no oral exudates, nose normal. [] Eyes: PERRLA, EOMI, conjunctiva normal, no discharge. [] Neck: Normal range of motion, no tenderness, supple, no stridor. [] Cardiovascular:Heart rate regular rhythm, no murmur [] Lungs & Thorax: Bilateral breath sounds clear to auscultation [] Abdomen: Bowel sounds normal, soft, no tenderness, no masses, no pulsatile stoney s. [] Skin: Warm, dry, see extremity Back: No tenderness, no CVA tenderness. [] Extremities: Bilateral lower extremities with multiple open chronic scabbed over wounds, no drainage. Right hand with no obvious deformity, no scaphoid tenderness, tenderness on palpation on the ventral aspect of the right hand along the second provided and fourth metacarpals. Right knee with a superficial skin tear approximately 3 x 4 cm. Full range of motion to bilateral knees. +2 bilateral pedal pulses. Cap refill less than 2 seconds bilateral lower extremities. Right inner elbow with a skin tear approximately 4 x 2 cm, there is a similar skin tear on the left inner elbow. Full range of motion to bilateral upper extremities. +2 bilateral radial pulses. Adequate sensation bilateral upper extremities. She Neurologic: Alert and oriented X 3, normal motor function, normal sensory function, no focal deficits noted. Cranial nerves II through XII intact Psychologic: Affect normal, judgement normal, mood normal. [] (MIREYA LUND APRN) Current Patient Data Vital Signs Vital Signs Date Time Temp Pulse Resp B/P (MAP) Pulse Ox O2 Delivery O2 Flow Rate FiO2 05/20/19 19:17 80 17 92 05/20/19 16:13 97.4 143/94 (110) Room Air 97.4 (LILY BALTAZAR MD) EKG EKG [] (MIREYA LUND JOSE CARLOS) Radiology/Procedures Radiology/Procedures []PROCEDURE: ELBOW BILAT 3V Three-view bilateral elbow dated 05/20/2019. No comparison available. Clinical indication: Pain after fall. FINDINGS: 3 views of right elbow show normal bony alignment. No displaced fracture. No acute osseous or articular abnormality. 3 views of left elbow show normal bony alignment. No displaced fracture. No acute osseous or articular abnormality. No apparent fat pad elevation to suggest joint effusion. IMPRESSION: No acute radiographic abnormality. Electronically signed by: Hany Palafox MD (05/20/2019 7:05 PM) [facility] DICTATED and SIGNED BY: HANY PALAFOX MD DATE: 05/20/191904 PROCEDURE: HAND RIGHT 3V Three-view right hand dated 05/20/2019. No comparison available. CLINICAL INDICATION: Pain after fall. FINDINGS: 3 views of the right hand show oblique fracture through the midshaft of third metacarpal. Mild displacement. There is also a suspected avulsion fracture at the base of the middle phalanx on the volar side. No additional fractures are seen. IMPRESSION: 1. Minimally displaced mid shaft fracture of the third metacarpal. 2. Suspected volar plate avulsion at the base of the third middle phalanx. Electronically signed by: Hany Palafox MD (05/20/2019 7:07 PM) [facility] DICTATED and SIGNED BY: HANY PALAFOX MD DATE: 05/20/191906 PROCEDURE: KNEE RIGHT 3V Three-view right knee dated 05/20/2019. No comparison available. Clinical indication: Pain. Recent fall. FINDINGS: 3 views of the right knee show normal bony alignment. No displaced fracture. Mild tricompartmental hypertrophic change. No apparent joint effusion or loose body. Vascular calcinosis. There is soft tissue swelling and soft tissue gas anterior medially inferior to the patella. IMPRESSION: 1. No acute bony abnormality. 2. Mild tricompartmental DJD. 3. Soft tissue swelling and soft tissue gas anterior medially at the knee inferior to the patella. If there is clinical concern for injury to the patellar tendon or medial collateral complex, MRI would better evaluate. Electronically signed by: Hany Palafox MD (05/20/2019 7:04 PM) [facility] DICTATED and SIGNED BY: HANY PALAFOX MD DATE: 05/20/191903 (MIREYA LUND APRN) Course & Med Decision Making Course & Med Decision Making Pertinent Labs and Imaging studies reviewed. (See chart for details) This is a 68-year-old male patient who presents to the ED today to be evaluated after falling. Patient has skin tear on the right knee, bilateral elbows. He is complaining of right knee pain, bilateral elbow pain and right hand pain. Tetanus is up-to-date. Neosporin applied to the superficial skin tears. Right knee x-rays, bilateral elbow x-rays interpreted by radiologist are negative for any acute findings. Right hand x-rays interpreted by radiologist were noted for Minimally displaced mid shaft fracture of the third metacarpal. Suspected volar plate avulsion at the base of the third middle phalanx. Patient was placed in ulnar gutter splint by the generation technician, neurovascular exam done by me is intact. Ice elevation encouraged. Provided orthopedic doctor for follow-up in the course of next week (MIREYA LUND APRN) Dragon Disclaimer Dragon Disclaimer This electronic medical record was generated, in whole or in part, using a voice recognition dictation system. (MIREYA LUND APRN) Departure Departure Impression: Primary Impression: Fall from standing Additional Impressions: Fracture of metacarpal of right hand, closed Contusion, elbow Elbow laceration Contusion of right knee Disposition: 01 HOME, SELF-CARE Condition: STABLE Referrals: LUCIO MÉNDEZ MD (PCP) VARSHA PETERS MD Follow up with the provided orthopedic doctor in the course of next week Patient Instructions: Hand Fracture, Metacarpals, [id number] Additional Instructions: You were collected in the emergency room after falling, your right hand x-ray was noted for third metacarpal fracture. We provided you an orthopedic doctor, contact the office on Wednesday and set up a follow-up appointment. Try to ice and elevate the extremity. Take [id number] pain relievers as needed. Apply Neosporin to the skin tears you have keep the areas clean and dry. Problem Qualifiers Primary Impression: Fall from standing Encounter type: initial encounter Qualified Codes: W19.XXXA - Unspecified fall, initial encounter Additional Impressions: Fracture of metacarpal of right hand, closed Encounter type: initial encounter Metacarpal bone: third Metacarpal location: shaft Fracture alignment: displaced Qualified Codes: S62.322A - Displaced fracture of shaft of third metacarpal bone, right hand, initial encounter for closed fracture Contusion, elbow Encounter type: initial encounter Laterality: right Qualified Codes: S50.01XA - Contusion of right elbow, initial encounter Elbow laceration Encounter type: initial encounter Laterality: right Qualified Codes: S51.011A - Laceration without foreign body of right elbow, initial encounter Contusion of right knee Encounter type: initial encounter Qualified Codes: S80.01XA - Contusion of right knee, initial encounter MIREYA LUND APRN May 20, 2019 16:40 LILY BALTAZAR MD May 20, 2019 21:04
--- NOTE | 2019-05-20 19:07 | RAD ---
Three-view right knee dated 05/20/2019. No comparison available. Clinical indication: Pain. Recent fall. FINDINGS: 3 views of the right knee show normal bony alignment. No displaced fracture. Mild tricompartmental hypertrophic change. No apparent joint effusion or loose body. Vascular calcinosis. There is soft tissue swelling and soft tissue gas anterior medially inferior to the patella. IMPRESSION: 1. No acute bony abnormality. 2. Mild tricompartmental DJD. 3. Soft tissue swelling and soft tissue gas anterior medially at the knee inferior to the patella. If there is clinical concern for injury to the patellar tendon or medial collateral complex, MRI would better evaluate. Electronically signed by: Hany Palafox MD (05/20/2019 7:04 PM) [facility]
--- NOTE | 2019-05-20 19:08 | RAD ---
Three-view bilateral elbow dated 05/20/2019. No comparison available. Clinical indication: Pain after fall. FINDINGS: 3 views of right elbow show normal bony alignment. No displaced fracture. No acute osseous or articular abnormality. 3 views of left elbow show normal bony alignment. No displaced fracture. No acute osseous or articular abnormality. No apparent fat pad elevation to suggest joint effusion. IMPRESSION: No acute radiographic abnormality. Electronically signed by: Hany Palafox MD (05/20/2019 7:05 PM) [facility]
--- NOTE | 2019-05-20 19:10 | RAD ---
Three-view right hand dated 05/20/2019. No comparison available. CLINICAL INDICATION: Pain after fall. FINDINGS: 3 views of the right hand show oblique fracture through the midshaft of third metacarpal. Mild displacement. There is also a suspected avulsion fracture at the base of the middle phalanx on the volar side. No additional fractures are seen. IMPRESSION: 1. Minimally displaced mid shaft fracture of the third metacarpal. 2. Suspected volar plate avulsion at the base of the third middle phalanx. Electronically signed by: Hany Palafox MD (05/20/2019 7:07 PM) [facility]
[2019-05-20 19:17] VITALS: BP 112/69
== END 2019-05-20 19:27 | disposition home or self-care (01) ==
LOC: ER 16:13
DX: S62.322A Displaced fracture of shaft of third metacarpal bone, right hand, initial encounter for closed fracture (principal); S51.011A Laceration without foreign body of right elbow, initial encounter; S80.01XA Contusion of right knee, initial encounter; S50.01XA Contusion of right elbow, initial encounter; I10 Essential (primary) hypertension; E03.9 Hypothyroidism, unspecified; Z88.6 Allergy status to analgesic agent; Z88.5 Allergy status to narcotic agent; Z91.013 Allergy to seafood; W18.09XA Striking against other object with subsequent fall, initial encounter; Y93.01 Activity, walking, marching and hiking; Y92.89 Other specified places as the place of occurrence of the external cause; Y99.8 Other external cause status
CPT/HCPCS: 29125; 73080; 73130; 73562; 99284

== ENCOUNTER 2019-06-01 13:58 | Inpatient (IN) | payer MEDICARE ==
[~2019-06-01] VITALS: Ht 177.8 cm; Wt 103.4 kg
[2019-06-01] MEDS ORDERED: IV NORMAL SALINE 1000ML BAG 1,000 ML IV SCH (15:24)
[2019-06-01] MEDS ORDERED: PIPERACILLIN/TAZOBACTAM 4.5 GM in IV NORMAL SALINE 100ML 100 ML IV ONE (15:30)
[2019-06-01] MEDS ORDERED: ONDANSETRON PF 4 MG/2 ML VIAL. IVP ONE (15:30)
--- NOTE | 2019-06-01 15:35 | EKG ---
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
--- NOTE | 2019-06-01 16:01 | RAD ---
PORTABLE CHEST 1V Clinical indications: Weakness. COMPARISON: July 13, 2018. 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 There is mild linear atelectasis within the right lower lung zone. No lung consolidation or pleural effusion or pulmonary edema or lung mass or pneumothorax is seen. The heart size, pulmonary vasculature, mediastinum and both jennifer are unremarkable. Impression: Mild linear atelectasis of the right lower lung zone. Electronically signed by: Oscar Napier MD (06/01/2019 3:58 PM) [id number]
[2019-06-01 16:10] LABS: BASO # 0.1 x10^3/uL (0.0-0.2); BASO % 1 % (0-3); EOS # 0.5 x10^3/uL (0.0-0.7); EOS % 4 % (0-3); HEMATOCRIT 49.2 % (39.0-53.0); HEMOGLOBIN 16.2 g/dL (13.0-17.5); LYMPH # 1.6 x10^3/uL (1.0-4.8); LYMPH % 13 % (24-48); MEAN CORPUSCULAR HEMOGLOBIN 28 pg (25-35); MEAN CORPUSCULAR HGB CONC 33 g/dL (31-37); MEAN CORPUSCULAR VOLUME 86 fL (79-100); MONO % 8 % (0-9); NEUT # 9.3 x10^3/uL (1.8-7.7); NEUT % 74 % (31-73); PLATELET COUNT 261 x10^3/uL (140-400); RED BLOOD COUNT 5.75 x10^6/uL (4.30-5.70); RED CELL DISTRIBUTION WIDTH 15.2 % (11.5-14.5); WHITE BLOOD COUNT 12.6 x10^3/uL (4.0-11.0)
--- NOTE | 2019-06-01 16:15 | RAD ---
Examination: CT HEAD WO CONTRAST History: Weakness Comparison/Correlation: None Findings: Axial images were obtained without contrast. Atrophy is present. No intracranial hemorrhage, midline shift, or mass effect. Cavernous carotid calcifications noted. Small left maxillary sinus retention cyst is present. Bony structures are unremarkable. Globes and optic nerves are unremarkable. Impression: Atrophy. No suspicious process. PQRS Compliance Statement: One or more of the following individualized dose reduction techniques were utilized for this examination: 1. Automated exposure control 2. Adjustment of the mA and/or kV according to patient size 3. Use of iterative reconstruction technique Electronically signed by: Martinez Murphy MD (06/01/2019 4:13 PM) [facility]
[2019-06-01] MEDS: fentaNYL PF VIAL 100 MCG/2 ML VIAL IV PRN ×4 (16:19→18:52)
[2019-06-01 16:22] LABS: PROTHROMBIN TIME PATIENT 13.1 SEC (11.7-14.0)
[2019-06-01 16:40] LABS: CALCIUM 9.1 mg/dL (8.5-10.1); CREATININE 1.7 mg/dL (0.7-1.3); POTASSIUM 3.1 mmol/L (3.5-5.1)
[2019-06-01 16:42] LABS: ALBUMIN 2.6 g/dL (3.4-5.0); ALBUMIN/GLOBULIN RATIO 0.8 (1.0-1.7); MAGNESIUM 2.1 mg/dL (1.8-2.4); TOTAL BILIRUBIN 0.9 mg/dL (0.2-1.0)
[2019-06-01 16:59] LABS: CREATINE KINASE 36 U/L (39-308)
--- NOTE | 2019-06-01 17:51 | PDOC1 ---
History and Physical Date of Admission Date of Admission DATE: 06/01/19 TIME: 17:51 Identification/Chief Complaint Chief Complaint SEEN IN ER, WORSENING CELLULITIS BOTH LOWER LEGS R > L X 3 DAYS, RED WITH FOUL ODOR Past Medical History Past Medical History Past Medical History Past Medical History: Hypertension, Hypothyroid, Other Additional Past Medical Histor: bullous pemphigoid, patient poor historian Past Surgical History: No Surgical History Additional Past Surgical Histo: PATIENT POOR HISTORIAN Alcohol Use: None Drug Use: None Cardiovascular: HTN Renal/: Acute renal failure Endocrine: Hypothyroidism Dermatology: Rash, Other (BULLOUS PEMPHIGOID) Past Surgical History Past Surgical History: No pertinent history Family History Family History: Hypertension Social History Smoke: <1 pack per day ALCOHOL: none Drugs: None Current Medications Current Medications Current Medications Piperacillin Sod/ Tazobactam Sod 4.5 gm/Sodium Chloride 100 ml @ 200 mls/hr 1X ONCE IV Last administered on 06/01/19at 17:19; Start 06/01/19 at 15:30; Stop 06/01/19 at 15:59; Status DC Fentanyl Citrate (Fentanyl 2ml Vial) 50 mcg PRN Q15MIN PRN IV PAIN GREATER THAN 3/10 Last administered on 06/01/19at 16:56; Start 06/01/19 at 15:30; Stop 06/02/19 at 15:29 Sodium Chloride 1,000 ml @ 1,000 mls/hr Q1H IV Last administered on 06/01/19at 16:18; Start 06/01/19 at 15:24; Stop 06/01/19 at 16:23; Status DC Ondansetron HCl (Zofran) 4 mg 1X ONCE IVP Last administered on 06/01/19at 16:19; Start 06/01/19 at 15:30; Stop 06/01/19 at 15:34; Status DC Active Scripts Active Reported Levothyroxine Sodium 100 Mcg Tablet 1 Tab PO DAILY Prednisolone 15 Mg/5 Ml Solution 10 Mg PO DAILY Lisinopril 10 Mg Tablet 1 Tab PO DAILY Allergies Allergies: Coded Allergies: acetaminophen (Verified Allergy, Intermediate, 07/13/18) morphine (Verified Allergy, Intermediate, 07/13/18) shellfish derived (Verified Allergy, Intermediate, 07/13/18) ROS General: YES: Fatigue Eyes: No Blurry vision, No Decreased vision, No Double vision, No Dry eyes, No Excessive tearing, No Eye Pain, No Itchy Eyes, No Loss of vision, No Photophobia, No Scotomata, No Uses contacts, No Uses glasses, No Other Respiratory: No: Cough, Hemoptysis, Orthopnea, Pleuritic Pain, Shortness of breath, SOB with excertion, Sputum Changes, Stridor, Tachypnea, Wheezing, Other Cardiovascular: No Chest Pain, No Palpitations, No Orthopnea, No Paroxysmal Noc. Dyspnea, No Edema, No Lt Headedness, No Other Musculoskeletal: Yes Gait Disturbance, Yes Joint Stiffness Neurological: Yes Gait Disturbance Skin: Yes Dry Skin, Yes Skin Lesion Changes Physical Exam General: Alert, Oriented X3, Cooperative, No acute distress HEENT: PERRLA Lungs: Clear to auscultation, Normal air movement Heart: RRR Abdomen: Normal bowel sounds, Soft Rectal Exam: not examined PELVIC: Examination not indicated Extremities: No cyanosis Skin: Other (MARKED BILATERAL CELLULITIS BOTH LEGS WITH BULLOUS CHANGES, ERYTHEMA) Vitals Vitals Vital Signs Date Time Temp Pulse Resp B/P (MAP) Pulse Ox O2 Delivery O2 Flow Rate FiO2 06/01/19 14:50 97.3 82 20 107/74 (85) 94 Room Air 97.3 Labs Labs Laboratory Tests Test 06/01/19 15:50 06/01/19 16:11 White Blood Count 12.6 x10^3/uL (4.0-11.0) Red Blood Count 5.75 x10^6/uL (4.30-5.70) Hemoglobin 16.2 g/dL (13.0-17.5) Hematocrit 49.2 % (39.0-53.0) Mean Corpuscular Volume 86 fL (79-100) Mean Corpuscular Hemoglobin 28 pg (25-35) Mean Corpuscular Hemoglobin Concent 33 g/dL (31-37) Red Cell Distribution Width 15.2 % (11.5-14.5) Platelet Count 261 x10^3/uL (140-400) Neutrophils (%) (Auto) 74 % (31-73) Lymphocytes (%) (Auto) 13 % (24-48) Monocytes (%) (Auto) 8 % (0-9) Eosinophils (%) (Auto) 4 % (0-3) Basophils (%) (Auto) 1 % (0-3) Neutrophils # (Auto) 9.3 x10^3/uL (1.8-7.7) Lymphocytes # (Auto) 1.6 x10^3/uL (1.0-4.8) Monocytes # (Auto) 1.0 x10^3/uL (0.0-1.1) Eosinophils # (Auto) 0.5 x10^3/uL (0.0-0.7) Basophils # (Auto) 0.1 x10^3/uL (0.0-0.2) Prothrombin Time 13.1 SEC (11.7-14.0) Prothromb Time International Ratio 1.0 (0.8-1.1) Activated Partial Thromboplast Time 32 SEC (24-38) Sodium Level 141 mmol/L (136-145) Potassium Level 3.1 mmol/L (3.5-5.1) Chloride Level 101 mmol/L (98-107) Carbon Dioxide Level 26 mmol/L (21-32) Anion Gap 14 (6-14) Blood Urea Nitrogen 15 mg/dL (8-26) Creatinine 1.7 mg/dL (0.7-1.3) Estimated GFR (Cockcroft-Gault) 40.0 BUN/Creatinine Ratio 9 (6-20) Glucose Level 76 mg/dL (70-99) Lactic Acid Level 2.3 mmol/L (0.4-2.0) Calcium Level 9.1 mg/dL (8.5-10.1) Magnesium Level 2.1 mg/dL (1.8-2.4) Total Bilirubin 0.9 mg/dL (0.2-1.0) Aspartate Amino Transf (AST/SGOT) 20 U/L (15-37) Alanine Aminotransferase (ALT/SGPT) 8 U/L (16-63) Alkaline Phosphatase 76 U/L (46-116) Creatine Kinase 36 U/L (39-308) Creatine Kinase MB (Mass) 0.5 ng/mL (0.0-3.6) Creatine Kinase MB Relative Index % (0-4) Troponin I Quantitative < 0.017 ng/mL (0.000-0.055) NT-Saz-L-Type Natriuretic Peptide 229 pg/mL (0-124) Total Protein 6.0 g/dL (6.4-8.2) Albumin 2.6 g/dL (3.4-5.0) Albumin/Globulin Ratio 0.8 (1.0-1.7) Lipase 77 U/L (73-393) Thyroid Stimulating Hormone (TSH) 8.645 uIU/mL (0.358-3.74) Bedside Troponin I 0.00 ng/ml (<0.08) Laboratory Tests Test 06/01/19 15:50 06/01/19 16:11 White Blood Count 12.6 x10^3/uL (4.0-11.0) Red Blood Count 5.75 x10^6/uL (4.30-5.70) Hemoglobin 16.2 g/dL (13.0-17.5) Hematocrit 49.2 % (39.0-53.0) Mean Corpuscular Volume 86 fL (79-100) Mean Corpuscular Hemoglobin 28 pg (25-35) Mean Corpuscular Hemoglobin Concent 33 g/dL (31-37) Red Cell Distribution Width 15.2 % (11.5-14.5) Platelet Count 261 x10^3/uL (140-400) Neutrophils (%) (Auto) 74 % (31-73) Lymphocytes (%) (Auto) 13 % (24-48) Monocytes (%) (Auto) 8 % (0-9) Eosinophils (%) (Auto) 4 % (0-3) Basophils (%) (Auto) 1 % (0-3) Neutrophils # (Auto) 9.3 x10^3/uL (1.8-7.7) Lymphocytes # (Auto) 1.6 x10^3/uL (1.0-4.8) Monocytes # (Auto) 1.0 x10^3/uL (0.0-1.1) Eosinophils # (Auto) 0.5 x10^3/uL (0.0-0.7) Basophils # (Auto) 0.1 x10^3/uL (0.0-0.2) Prothrombin Time 13.1 SEC (11.7-14.0) Prothromb Time International Ratio 1.0 (0.8-1.1) Activated Partial Thromboplast Time 32 SEC (24-38) Sodium Level 141 mmol/L (136-145) Potassium Level 3.1 mmol/L (3.5-5.1) Chloride Level 101 mmol/L (98-107) Carbon Dioxide Level 26 mmol/L (21-32) Anion Gap 14 (6-14) Blood Urea Nitrogen 15 mg/dL (8-26) Creatinine 1.7 mg/dL (0.7-1.3) Estimated GFR (Cockcroft-Gault) 40.0 BUN/Creatinine Ratio 9 (6-20) Glucose Level 76 mg/dL (70-99) Lactic Acid Level 2.3 mmol/L (0.4-2.0) Calcium Level 9.1 mg/dL (8.5-10.1) Magnesium Level 2.1 mg/dL (1.8-2.4) Total Bilirubin 0.9 mg/dL (0.2-1.0) Aspartate Amino Transf (AST/SGOT) 20 U/L (15-37) Alanine Aminotransferase (ALT/SGPT) 8 U/L (16-63) Alkaline Phosphatase 76 U/L (46-116) Creatine Kinase 36 U/L (39-308) Creatine Kinase MB (Mass) 0.5 ng/mL (0.0-3.6) Creatine Kinase MB Relative Index % (0-4) Troponin I Quantitative < 0.017 ng/mL (0.000-0.055) RQ-Ikx-N-Type Natriuretic Peptide 229 pg/mL (0-124) Total Protein 6.0 g/dL (6.4-8.2) Albumin 2.6 g/dL (3.4-5.0) Albumin/Globulin Ratio 0.8 (1.0-1.7) Lipase 77 U/L (73-393) Thyroid Stimulating Hormone (TSH) 8.645 uIU/mL (0.358-3.74) Bedside Troponin I 0.00 ng/ml (<0.08) Images Images Clinical indications: Weakness. COMPARISON: July 13, 2018. 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 There is mild linear atelectasis within the right lower lung zone. No lung consolidation or pleural effusion or pulmonary edema or lung mass or pneumothorax is seen. The heart size, pulmonary vasculature, mediastinum and both jennifer are unremarkable. Impression: Mild linear atelectasis of the right lower lung zone. Electronically signed by: Oscar Napier MD (06/01/2019 3:58 PM) [id number] VTE Prophylaxis Ordered VTE Prophylaxis Devices: Contraindicated VTE Pharmacological Prophylaxi: Yes Assessment/Plan Assessment/Plan Assessment/Plan BILATERAL Leg wounds, bullous pemphigoid with acute cellulitis, SIRS possibly infectious in origin with organ dysfcn (KUSUM) Hypertension HX Orthostatic hypotension hx hx noncompliance KUSUM plan admit iv antibiotics, ZOSYN ID consult- HOLD LISINOPRIL WOUND CARE NURSE CONSULT DVT PROPHYLAXIS CONSULT NEPHROLOGY 74 MIN PT EXAM, CHART REVIEW, > 50% OF TIME SPENT WITH EXAM, CHART REVIEW, PT CARE COORDINATION GUANACO MANZANARES MD Jun 01, 2019 17:51
[2019-06-01] MEDS: IPRATRPIUM/ALBUTEROL 0.5/2.5MG 3 ML NEBU. NEB SCH ×3 (18:00→21:26)
[2019-06-01] MEDS ORDERED: ONDANSETRON PF 4 MG/2 ML VIAL. IV PRN (18:15)
[2019-06-01] MEDS ORDERED: 0.9 % SODIUM CHLORIDE 10 ML DISP.SYRIN. IV PRN (18:15)
[2019-06-01] MEDS ORDERED: MAG HYDROX/ALUMINUM HYD/SIMETH 30 ML ORAL.SUSP PO PRN (18:15)
[2019-06-01] MEDS ORDERED: DOCUSATE SODIUM 100 MG CAPSULE. PO PRN (18:15)
[2019-06-01] MEDS ORDERED: guaiFENesin ORAL 200 MG/10 ML LIQUID. PO PRN (18:15)
[2019-06-01] MEDS ORDERED: ACETAMINOPHEN 325 MG TABLET. PO PRN (18:15)
[2019-06-01] MEDS ORDERED: cloNIDine HCL 0.1 MG TABLET PO PRN (18:15)
[2019-06-01] MEDS: IV NORMAL SALINE 1000ML BAG 1,000 ML IV SCH (18:50)
[2019-06-01 19:00] VITALS: BP 93/45
--- NOTE | 2019-06-01 19:27 | PHYS DOC ---
Past Medical History Past Medical History: Hypertension, Hypothyroid, Other Additional Past Medical Histor: bullous pemphigoid, patient poor historian (MIREYA LUND APRN) Past Surgical History: No Surgical History Additional Past Surgical Histo: PATIENT POOR HISTORIAN (MIREYA LUND APRN) Alcohol Use: None Drug Use: None (MIREYA LUND APRN) Adult General Chief Complaint Chief Complaint: WEAKNESS/GENERALIZED HPI HPI Patient is a 68 year old male with history of hypertension, who presents today complaining of generalized weakness and worsening wounds bilateral lower extremities. Patient states he has history of bullous pemphigoid, he states he has not followed up with the wound clinic for 1 month. He states the wounds to bilateral lower extremities have gotten worse and they are now weeping and draining. He also reports he fractured his right wrist 2 weeks ago but has not followed up with orthopedic doctor (MIREYA LUND APRN) Review of Systems Review of Systems Constitutional: Reports generalized weakness. Denies fever or chills [] Eyes: Denies change in visual acuity, redness, or eye pain [] HENT: Denies nasal congestion or sore throat [] Respiratory: Denies cough or shortness of breath [] Cardiovascular: No additional information not addressed in HPI [] GI: Denies abdominal pain, nausea, vomiting, bloody stools or diarrhea [] : Denies dysuria or hematuria [] Musculoskeletal: Denies back pain or joint pain [] Integument: Reports worsening wounds to bilateral lower extremities. Neurologic: Denies headache, focal weakness or sensory changes [] All other systems were reviewed and found to be within normal limits, except as documented in this note. (MIREYA LUND APRN) Current Medications Current Medications Current Medications Medications (Trade) Dose Ordered Sig/Sharon Start Time Stop Time Status Last Admin Dose Admin Albuterol/ Ipratropium (Duoneb) 3 ml Q4H 06/01/19 18:00 06/01/19 20:43 3 ML Fentanyl Citrate (Fentanyl 2ml Vial) 50 mcg PRN Q15MIN PRN 06/01/19 15:30 06/01/19 18:50 DC 06/01/19 17:53 50 MCG Ondansetron HCl (Zofran) 4 mg 1X ONCE 06/01/19 15:30 06/01/19 15:34 DC 06/01/19 16:19 4 MG Piperacillin Sod/ Tazobactam Sod 4.5 gm/Sodium Chloride 100 ml @ 200 mls/hr 1X ONCE 06/01/19 15:30 06/01/19 15:59 DC 06/01/19 17:19 200 MLS/HR Sodium Chloride 1,000 ml @ 1,000 mls/hr Q1H 06/01/19 15:24 06/01/19 16:23 DC 06/01/19 16:18 1,000 MLS/HR (ANTONIO PATEL MD) Allergies Allergies Allergies Coded Allergies Type Severity Reaction Last Updated Verified acetaminophen Allergy Intermediate 07/13/18 Yes morphine Allergy Intermediate 07/13/18 Yes shellfish derived Allergy Intermediate 07/13/18 Yes (ANTONIO PATEL MD) Physical Exam Physical Exam Constitutional: Well developed, well nourished, no acute distress, non-toxic appearance. [] HENT: Normocephalic, atraumatic, bilateral external ears normal, oropharynx moist, no oral exudates, nose normal. [] Eyes: PERRLA, EOMI, conjunctiva normal, no discharge. [] Neck: Normal range of motion, no tenderness, supple, no stridor. [] Cardiovascular:Heart rate regular rhythm, no murmur [] Lungs & Thorax: Bilateral breath sounds clear to auscultation [] Abdomen: Bowel sounds normal, soft, no tenderness, no masses, no pulsatile masses. [] Skin: bilateral lower extremities with moderate amount of open wounds whipping and draining yellow purulent material. +2 bilateral pedal pulses. Back: No tenderness, no CVA tenderness. [] Extremities: Right forearm in a splint. Splint appears dirty Neuro: Alert and oriented 3, cranial nose 2 through 12 intact, no neuro deficits noted. Psychologic: Affect normal, judgement normal, mood normal. [] (MIREYA LUND APRN) Current Patient Data Vital Signs Vital Signs Date Time Temp Pulse Resp B/P (MAP) Pulse Ox O2 Delivery O2 Flow Rate FiO2 06/01/19 17:41 75 20 96 06/01/19 14:50 97.3 107/74 (85) Room Air 97.3 (ANTONIO PATEL MD) Lab Values Laboratory Tests Test 06/01/19 15:50 9/26/19 16:11 White Blood Count 12.6 x10^3/uL (4.0-11.0) H Red Blood Count 5.75 x10^6/uL (4.30-5.70) H Hemoglobin 16.2 g/dL (13.0-17.5) Hematocrit 49.2 % (39.0-53.0) Mean Corpuscular Volume 86 fL (79-100) Mean Corpuscular Hemoglobin 28 pg (25-35) Mean Corpuscular Hemoglobin Concent 33 g/dL (31-37) Red Cell Distribution Width 15.2 % (11.5-14.5) H Platelet Count 261 x10^3/uL (140-400) Neutrophils (%) (Auto) 74 % (31-73) H Lymphocytes (%) (Auto) 13 % (24-48) L Monocytes (%) (Auto) 8 % (0-9) Eosinophils (%) (Auto) 4 % (0-3) H Basophils (%) (Auto) 1 % (0-3) Neutrophils # (Auto) 9.3 x10^3/uL (1.8-7.7) H Lymphocytes # (Auto) 1.6 x10^3/uL (1.0-4.8) Monocytes # (Auto) 1.0 x10^3/uL (0.0-1.1) Eosinophils # (Auto) 0.5 x10^3/uL (0.0-0.7) Basophils # (Auto) 0.1 x10^3/uL (0.0-0.2) Prothrombin Time 13.1 SEC (11.7-14.0) Prothrombin Time INR 1.0 (0.8-1.1) Activated Partial Thromboplast Time 32 SEC (24-38) Sodium Level 141 mmol/L (136-145) Potassium Level 3.1 mmol/L (3.5-5.1) L Chloride Level 101 mmol/L (98-107) Carbon Dioxide Level 26 mmol/L (21-32) Anion Gap 14 (6-14) Blood Urea Nitrogen 15 mg/dL (8-26) Creatinine 1.7 mg/dL (0.7-1.3) H Estimated GFR (Cockcroft-Gault) 40.0 BUN/Creatinine Ratio 9 (6-20) Glucose Level 76 mg/dL (70-99) Lactic Acid Level 2.3 mmol/L (0.4-2.0) H Calcium Level 9.1 mg/dL (8.5-10.1) Magnesium Level 2.1 mg/dL (1.8-2.4) Total Bilirubin 0.9 mg/dL (0.2-1.0) Aspartate Amino Transferase (AST) 20 U/L (15-37) Alanine Aminotransferase (ALT) 8 U/L (16-63) L Alkaline Phosphatase 76 U/L (46-116) Creatine Kinase 36 U/L (39-308) L Creatine Kinase MB (Mass) 0.5 ng/mL (0.0-3.6) Creatine Kinase MB Relative Index % (0-4) Troponin I Quantitative < 0.017 ng/mL (0.000-0.055) [id number]-Type Natriuretic Peptide 229 pg/mL (0-124) H Total Protein 6.0 g/dL (6.4-8.2) L Albumin 2.6 g/dL (3.4-5.0) L Albumin/Globulin Ratio 0.8 (1.0-1.7) L Lipase 77 U/L (73-393) Thyroid Stimulating Hormone (TSH) 8.645 uIU/mL (0.358-3.74) H POC Troponin I 0.00 ng/ml (<0.08) Laboratory Tests 06/01/19 15:50 Laboratory Tests 06/01/19 15:50 Microbiology 06/01/19 Blood Culture - Preliminary, Resulted NO GROWTH AFTER 1 DAY (ANTONIO PATEL MD) EKG EKG [address] Maria sinus rhythm HR 79 no STEMI (MIREYA LUND APRN) Radiology/Procedures Radiology/Procedures []PROCEDURE: PORTABLE CHEST 1V PORTABLE CHEST 1V Clinical indications: Weakness. COMPARISON: July 13, 2018. 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 There is mild linear atelectasis within the right lower lung zone. No lung consolidation or pleural effusion or pulmonary edema or lung mass or pneumothorax is seen. The heart size, pulmonary vasculature, mediastinum and both jennifer are unremarkable. Impression: Mild linear atelectasis of the right lower lung zone. Electronically signed by: Kayce Napier MD (06/01/2019 3:58 PM) [id number] DICTATED and SIGNED BY: KAYCE NAPIER MD DATE: 06/01/19 1558 PROCEDURE: CT HEAD WO CONTRAST Examination: CT HEAD WO CONTRAST History: Weakness Comparison/Correlation: None Findings: Axial images were obtained without contrast. Atrophy is present. No intracranial hemorrhage, midline shift, or mass effect. Cavernous carotid calcifications noted. Small left maxillary sinus retention cyst is present. Bony structures are unremarkable. Globes and optic nerves are unremarkable. Impression: Atrophy. No suspicious process. PQRS Compliance Statement: One or more of the following individualized dose reduction techniques were utilized for this examination: 1. Automated exposure control 2. Adjustment of the mA and/or kV according to patient size 3. Use of iterative reconstruction technique Electronically signed by: Martinez Samuel MD (06/01/2019 4:13 PM) [facility] DICTATED and SIGNED BY: MARTINEZ SAMUEL MD DATE: 06/01/19 1613 (MIREYA LUND APRN) Course & Med Decision Making Course & Med Decision Making Pertinent Labs and Imaging studies reviewed. (See chart for details) This is a 68-year-old male patient who presents to the ED today complaining of worsening wounds with infection to bilateral lower extremities, patient has history of bullous pemphigoid, he states he has not been seen at the wound clinic for 1 month. He is also complaining of generalized weakness. On arrival to the ED vitals temperature 97.3, heart rate 82, respiration 20 room air, blood pressure 107/74, O2 sats 94% on room air. CBC with a WBC of 12.6, CMP with potassium of 3.1, patient was given oral potassium replacement. Creatinine 1.7 BUN of 15, patient has history of renal insufficiency. Lactate 2.3. Patient has already been given a liter of fluid as well as vancomycin and Zosyn. More fluids ordered Spoke with Dr. Carey who accepted patient for admission. Wound consult placed (MIREYA LUND APRN) Course & Med Decision Making Staff Physician Addendum: I was working in the ER during the course of this patient's visit. I was available for consultation as needed, but I was not directly involved in the care of this patient. (ANTONIO PATEL MD) Dragon Disclaimer Dragon Disclaimer This electronic medical record was generated, in whole or in part, using a voice recognition dictation system. (MIREYA LUND APRN) Date and Time of Reassessment Date: Jun 01, 2019 Time: 17:50 (MIREYA LUND APRN) Fluid Challenge Is the fluid challenge complet: No IBW Target Volume Used: Yes BMI > 30: Yes (is) (MIREYA LUND APRN) Vital Signs Vital Signs: Vital Signs Date Time Temp Pulse Resp B/P (MAP) Pulse Ox O2 Delivery O2 Flow Rate FiO2 06/01/19 17:41 75 20 96 06/01/19 14:50 97.3 107/74 (85) Room Air 97.3 (ANTONIO PATEL MD) Temperature Source: Oral (MIREYA LUND APRN) Temperature Source: Oral (ANTONIO PATEL MD) Respirations Respiratory Effort: Normal Respiratory Pattern: Normal (MIREYA LUND APRN) Cardiovascular Pulse Rhythm: Regular ( over the) Heart: Nml rate, reg. rhythm (MIREYA LUND APRN) Lung Sounds Breath Sounds: Clear (MIREYA LUND APRN) Capillary Refil Capillary Refill: Rt Hand > 3 seconds (MIREYA LUND APRN) Peripheral Pulse Pulse Location: Monitor Pulse Strength: Normal (2+) Pulse Assessment Method: Monitor (MIREYA LUND APRN) Pulse Assessment Method: Monitor (ANTONIO PATEL MD) Integumentary Skin: Warm Skin Moisture: Dry Skin Turgor: Normal Skin Color: warm Fingernail Color: WNL (MIREYA LUND APRN) Skin Moisture: Dry (ANTONIO PATEL MD) Departure Departure Impression: Primary Impression: Bullous pemphigoid Additional Impressions: Cellulitis of both lower extremities Sepsis Renal insufficiency Disposition: ADMITTED INPATIENT Condition: STABLE Referrals: LUCIO MÉNDEZ MD (PCP) Problem Qualifiers Additional Impressions: Sepsis Sepsis type: sepsis due to unspecified organism Sepsis acute organ dysfunction status: unspecified Qualified Codes: A41.9 - Sepsis, unspecified organism MIREYA LUND APRN Jun 01, 2019 19:26 ANTONIO PATEL MD Jun 02, 2019 21:57
[2019-06-01] MEDS ORDERED: POTASSIUM CHLORIDE 20 MEQ TABLET.ER. PO ONE (19:30)
[2019-06-01] MEDS ORDERED: IV NORMAL SALINE 1000ML BAG 1,000 ML IV ONE ×2 (19:30)
--- NOTE | 2019-06-01 20:00 | NUR ---
Admitted from ER. Pt educated on POC and oriented to room. Attempted to take pictures of wounds on bilateral lower extermities, patient refused stating dressings were just applied in the ER and wound care would be in during dayshift to see him. Will discuss with oncoming nurse in the am.
[2019-06-01 23:00] VITALS: BP 94/47
[2019-06-02] VITALS (7 sets, daily range): BP systolic 85–120; BP diastolic 41–59
[2019-06-02] MEDS: PIPERACILLIN/TAZOBACTAM 3.375 GM in IV NORMAL SALINE 50ML 50 ML IV SCH ×4 (00:35→17:39)
[2019-06-02] MEDS: IV NORMAL SALINE 1000ML BAG 1,000 ML IV SCH ×2 (04:54→15:00)
[2019-06-02] MEDS: IPRATRPIUM/ALBUTEROL 0.5/2.5MG 3 ML NEBU. NEB SCH ×6 (06:00→23:37)
--- NOTE | 2019-06-02 07:05 | NUR ---
Discussed with dayshift nurse wound pictures were not completed due to patient refusing and requested for wound care to do when they remove the dressings. Dayshift nurse in agreement.
--- NOTE | 2019-06-02 07:38 | NUR ---
Patient complained that the breathing treatment gave him chest pain and a sore throat.
--- NOTE | 2019-06-02 07:52 | PDOC ---
Infectious Disease Note Vital Sign Vital Signs Vital Signs Date Time Temp Pulse Resp B/P (MAP) Pulse Ox O2 Delivery O2 Flow Rate FiO2 06/02/19 03:00 98.1 82 100/45 (63) 97 98.1 06/01/19 20:42 Room Air 06/01/19 19:30 16 Labs Lab Laboratory Tests Test 06/01/19 15:50 06/01/19 16:11 06/01/19 23:35 White Blood Count 12.6 x10^3/uL (4.0-11.0) Red Blood Count 5.75 x10^6/uL (4.30-5.70) Hemoglobin 16.2 g/dL (13.0-17.5) Hematocrit 49.2 % (39.0-53.0) Mean Corpuscular Volume 86 fL (79-100) Mean Corpuscular Hemoglobin 28 pg (25-35) Mean Corpuscular Hemoglobin Concent 33 g/dL (31-37) Red Cell Distribution Width 15.2 % (11.5-14.5) Platelet Count 261 x10^3/uL (140-400) Neutrophils (%) (Auto) 74 % (31-73) Lymphocytes (%) (Auto) 13 % (24-48) Monocytes (%) (Auto) 8 % (0-9) Eosinophils (%) (Auto) 4 % (0-3) Basophils (%) (Auto) 1 % (0-3) Neutrophils # (Auto) 9.3 x10^3/uL (1.8-7.7) Lymphocytes # (Auto) 1.6 x10^3/uL (1.0-4.8) Monocytes # (Auto) 1.0 x10^3/uL (0.0-1.1) Eosinophils # (Auto) 0.5 x10^3/uL (0.0-0.7) Basophils # (Auto) 0.1 x10^3/uL (0.0-0.2) Prothrombin Time 13.1 SEC (11.7-14.0) Prothromb Time International Ratio 1.0 (0.8-1.1) Activated Partial Thromboplast Time 32 SEC (24-38) Sodium Level 141 mmol/L (136-145) Potassium Level 3.1 mmol/L (3.5-5.1) Chloride Level 101 mmol/L (98-107) Carbon Dioxide Level 26 mmol/L (21-32) Anion Gap 14 (6-14) Blood Urea Nitrogen 15 mg/dL (8-26) Creatinine 1.7 mg/dL (0.7-1.3) Estimated GFR (Cockcroft-Gault) 40.0 BUN/Creatinine Ratio 9 (6-20) Glucose Level 76 mg/dL (70-99) Lactic Acid Level 2.3 mmol/L (0.4-2.0) 1.5 mmol/L (0.4-2.0) Calcium Level 9.1 mg/dL (8.5-10.1) Magnesium Level 2.1 mg/dL (1.8-2.4) Total Bilirubin 0.9 mg/dL (0.2-1.0) Aspartate Amino Transf (AST/SGOT) 20 U/L (15-37) Alanine Aminotransferase (ALT/SGPT) 8 U/L (16-63) Alkaline Phosphatase 76 U/L (46-116) Creatine Kinase 36 U/L (39-308) Creatine Kinase MB (Mass) 0.5 ng/mL (0.0-3.6) Creatine Kinase MB Relative Index % (0-4) Troponin I Quantitative < 0.017 ng/mL (0.000-0.055) HO-[id number]-Type Natriuretic Peptide 229 pg/mL (0-124) Total Protein 6.0 g/dL (6.4-8.2) Albumin 2.6 g/dL (3.4-5.0) Albumin/Globulin Ratio 0.8 (1.0-1.7) Lipase 77 U/L (73-393) Thyroid Stimulating Hormone (TSH) 8.645 uIU/mL (0.358-3.74) Bedside Troponin I 0.00 ng/ml (<0.08) Objective Assessment pt seen, consult dictated Plan Plan of Care / CIPRIANO ARRIAGA MD Jun 02, 2019 07:52
[2019-06-02 08:30] LABS: BASO % 1 % (0-3); EOS # 0.7 x10^3/uL (0.0-0.7); EOS % 8 % (0-3); HEMATOCRIT 41.5 % (39.0-53.0); HEMOGLOBIN 13.9 g/dL (13.0-17.5); LYMPH # 1.3 x10^3/uL (1.0-4.8); LYMPH % 16 % (24-48); MEAN CORPUSCULAR HEMOGLOBIN 29 pg (25-35); MEAN CORPUSCULAR HGB CONC 34 g/dL (31-37); MEAN CORPUSCULAR VOLUME 86 fL (79-100); MONO # 0.9 x10^3/uL (0.0-1.1); MONO % 11 % (0-9); NEUT # 5.5 x10^3/uL (1.8-7.7); NEUT % 65 % (31-73); PLATELET COUNT 211 x10^3/uL (140-400); RED BLOOD COUNT 4.85 x10^6/uL (4.30-5.70); RED CELL DISTRIBUTION WIDTH 15.6 % (11.5-14.5); WHITE BLOOD COUNT 8.4 x10^3/uL (4.0-11.0)
--- NOTE | 2019-06-02 08:31 | CONS ---
DATE OF CONSULTATION: 06/02/2019 REQUESTING PHYSICIAN: Dr. Carey. REASON FOR CONSULTATION: Lower extremity cellulitis. HISTORY OF PRESENT ILLNESS: This is a 68-year-old gentleman with a history of bullous pemphigoid. The patient came in the hospital for unclear reasons, just weakness. 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 He has this thing for more than 10 years. He used to go to the doctor, he says and then he got frustrated because it was not getting better, so he has not been to the doctor for a long time. Recently, he had a fall with right wrist fracture and multiple other skin breakdowns and so probably he came in because he just could not maintain his day to day living at home by himself. Denies any fever, denies any nausea, vomiting, diarrhea. Denies any chest pain, shortness of breath, abdominal pain, urinary symptoms or bowel symptoms. PAST MEDICAL HISTORY: Positive for bullous pemphigoid, hypothyroidism, recent right wrist fracture. SOCIAL HISTORY: Positive for smoking, no alcohol use or drug use. ALLERGIES: LISTED ALLERGIC TO TYLENOL, MORPHINE. CURRENT MEDICATIONS: The patient is on Zosyn. REVIEW OF SYSTEMS: As per HPI, all other systems reviewed are negative. PHYSICAL EXAMINATION: GENERAL: Alert, oriented gentleman, not in distress. VITAL SIGNS: Stable, afebrile. HEENT: NAD. NECK: Supple, no JVP, no lymphadenopathy. LUNGS: Clear. HEART: S1, S2 regular. ABDOMEN: Benign. EXTREMITIES: The patient does have ulcerations and some blistering of the lower extremity. There is chronic venous insufficiency changes and scarring present. There is no acute cellulitis. The patient does have a soft cast on the right wrist. The patient also has some other breakdown on the left elbow and the right elbow from the fall. There are no signs of infection there. NEUROLOGIC: Alert, awake and appropriate. No focal neurologic deficit. LABORATORY DATA: White count is 12.6, hemoglobin 16.2, platelets are normal. BUN and creatinine is 15 and 1.7. Baseline creatinine is unknown. Albumin is 2.6. Chest x-ray unremarkable for any consolidation other than atelectasis and CT head is unremarkable other than atrophy. IMPRESSION: 1. The patient with bullous pemphigoid. The changes in the legs are chronic. There does not appear to be any acute changes or infection. 2. Slight leukocytosis, which is likely reactive. 3. Recent fall with right wrist fracture and minor abrasions. 4. Creatinine 1.7, unknown baseline. PLAN: Would hydrate and repeat the creatinine. I do not see the need for any antibiotics and from the Infectious Disease standpoint of view, patient can be discharged. The patient needs to see a etl analyst. Thank you very much, Dr. Carey, for giving me the opportunity to participate in this patient's care. CIPRIANO ARRIAGA MD DR: NILDA/julian JOB#: [id number] / [id number]
[2019-06-02 08:39] LABS: CREATININE 1.6 mg/dL (0.7-1.3); GFR 42.9; POTASSIUM 3.1 mmol/L (3.5-5.1)
[2019-06-02] MEDS ORDERED: HYDROcodone/APAP 5/325MG 1 TAB TABLET PO PRN (09:00)
[2019-06-02] MEDS ORDERED: FLU VAX QS 2019-20 (36MOS+)/PF 0.5 ML SYRINGE. VAX IM ONE (09:00)
[2019-06-02] MEDS: ENOXAPARIN 40 MG/0.4 ML SYRINGE. SQ SCH (09:00)
[2019-06-02] MEDS: LEVOTHYROXINE 100 MCG TABLET PO SCH (09:38)
[2019-06-02] MEDS: LACTOBACILLUS RHAMNOSUS GG 1 CAPSULE. PO SCH ×2 (09:44→20:48)
--- NOTE | 2019-06-02 12:03 | PDOC2 ---
CONSULT Date of Consult Date of Consult DATE: 06/02/19 TIME: 11:57 History of Present Illness Reason for Visit: THIS IS A 68 YR OLD WITH LE WOUNDS AND CONCERNS FOR CELLULITIS. HIS CR IS 1.7 AND CONSULT INITIATED. HE IS NOTED TO CKD WITH CR OF 1.5-1.6 A YEAR AGO. NO NSAIDS AND NO NEPHROTOXINS NOTED. NO HEMODYNAMIC INSTABILITY NOTED. K OF 3.1. NO OTHER HX NOTED. HAS RARE NOCTURIA Past Medical History Cardiovascular: HTN Renal/: Chronic renal insuff Endocrine: Hypothyroidism Dermatology: Rash, Other (BULLOUS PEMPHIGOID) Past Surgical History Past Surgical History: No pertinent history Family History Family History: No Significant, Hypertension Social History <1 pack per day ALCOHOL: none Drugs: None Current Problem List Problem List Problems Medical Problems: (1) KUSUM (acute kidney injury) Status: Acute (2) Bullous pemphigoid Status: Acute (3) Cellulitis of both lower extremities Status: Acute (4) HTN (hypertension) Status: Chronic (5) Renal insufficiency Status: Acute (6) SIRS (systemic inflammatory response syndrome) Status: Acute Current Medications Current Medications Current Medications Piperacillin Sod/ Tazobactam Sod 4.5 gm/Sodium Chloride 100 ml @ 200 mls/hr 1X ONCE IV Last administered on 06/01/19at 17:19; Start 06/01/19 at 15:30; Stop 06/01/19 at 15:59; Status DC Fentanyl Citrate (Fentanyl 2ml Vial) 50 mcg PRN Q15MIN PRN IV PAIN GREATER THAN 3/10 Last administered on 06/01/19at 17:53; Start 06/01/19 at 15:30; Stop 06/01/19 at 18:50; Status DC Sodium Chloride 1,000 ml @ 1,000 mls/hr Q1H IV Last administered on 06/01/19at 16:18; Start 06/01/19 at 15:24; Stop 06/01/19 at 16:23; Status DC Ondansetron HCl (Zofran) 4 mg 1X ONCE IVP Last administered on 06/01/19at 16:19; Start 06/01/19 at 15:30; Stop 06/01/19 at 15:34; Status DC Piperacillin Sod/ Tazobactam Sod 3.375 gm/Sodium Chloride 50 ml @ 100 mls/hr Q6HRS IV Last administered on 06/02/19at 06:07; Start 06/02/19 at 00:00 Sodium Chloride (Normal Saline Flush) 3 ml QSHIFT PRN IV AFTER MEDS AND BLOOD DRAWS; Start 06/01/19 at 18:15 Sodium Chloride 1,000 ml @ 100 mls/hr Q10H IV Last administered on 06/02/19at 04:54; Start 06/01/19 at 19:00 Ondansetron HCl (Zofran) 4 mg PRN Q4HRS PRN IV NAUSEA/VOMITING; Start 06/01/19 at 18:15 Acetaminophen (Tylenol) 650 mg PRN Q4HRS PRN PO TEMP OVER 100.4F OR MILD PAIN; Start 06/01/19 at 18:15; Status UNV Al Hydroxide/Mg Hydroxide (Mylanta Plus Xs) 30 ml PRN DAILY PRN PO HEARTBURN / GAS; Start 06/01/19 at 18:15 Clonidine HCl (Catapres) 0.1 mg PRN Q6HRS PRN PO SBP>160 OR DBP>90; Start 06/01/19 at 18:15 Docusate Sodium (Colace) 100 mg PRN BID PRN PO CONSTIPATION; Start 06/01/19 at 18:15 Albuterol/ Ipratropium (Duoneb) 3 ml Q4H NEB Last administered on 06/01/19at 20:43; Start 06/01/19 at 18:00 Guaifenesin (Robitussin) 200 mg PRN Q4HRS PRN PO COUGH; Start 06/01/19 at 18:15 Lorazepam (Ativan) 0.5 mg PRN Q4HRS PRN PO ANXIETY / AGITATION; Start 06/01/19 at 18:15 Enoxaparin Sodium (Lovenox 40mg Syringe) 40 mg DAILY SQ ; Start 06/02/19 at 09:00 Fentanyl Citrate (Fentanyl 2ml Vial) 50 mcg PRN Q1HR PRN IV PAIN Last administered on 06/01/19at 18:52; Start 06/01/19 at 18:45; Stop 06/02/19 at 18:44 Sodium Chloride 1,000 ml @ 1,000 mls/hr 1X ONCE IV Last administered on 06/01/19at 19:54; Start 06/01/19 at 19:30; Stop 06/01/19 at 20:29; Status DC Sodium Chloride 1,000 ml @ 125 mls/hr 1X ONCE IV Last administered on 06/01/19at 19:56; Start 06/01/19 at 19:30; Stop 06/02/19 at 03:29; Status DC Potassium Chloride (Klor-Con) 40 meq 1X ONCE PO Last administered on 06/01/19at 22:08; Start 06/01/19 at 19:30; Stop 06/01/19 at 19:31; Status DC Influenza Virus Vaccine Quadrival (Afluria Quad 2019-20 (3yr Up) Syringe) 0.5 ml ONCE ONCE VAX IM ; Start 06/02/19 at 09:00; Stop 06/02/19 at 09:01; Status DC Levothyroxine Sodium (Synthroid) 100 mcg DAILY07 PO Last administered on 06/02/19at 09:38; Start 06/02/19 at 09:00 Acetaminophen/ Hydrocodone Bitart (Lortab 5/325) 1 tab PRN Q4HRS PRN PO PAIN; Start 06/02/19 at 09:00; Status UNV Tramadol HCl (Ultram) 50 mg PRN Q6HRS PRN PO PAIN; Start 06/02/19 at 09:15 Lactobacillus Rhamnosus (Culturelle) 1 cap BID PO ; Start 06/02/19 at 10:00 Active Scripts Active Reported Levothyroxine Sodium 100 Mcg Tablet 1 Tab PO DAILY Allergies Allergies: Coded Allergies: acetaminophen (Verified Allergy, Intermediate, 07/13/18) morphine (Verified Allergy, Intermediate, 07/13/18) shellfish derived (Verified Allergy, Intermediate, 07/13/18) ROS General: YES: Fatigue PSYCHOLOGICAL ROS: YES: Depression Eyes: Yes Decreased vision ALLERGY AND IMMUNOLOGY: YES: Seasonal Allergies Respiratory: YES: Cough Genitourinary: YES Other (NOCTURIA) Musculoskeletal: Yes Muscular Weakness Neurological: Yes Weakness Skin: Yes Skin Lesion Changes Physical Exam General: Alert, Oriented X3, Cooperative, No acute distress HEENT: Atraumatic, PERRLA Lungs: Clear to auscultation Heart: Regular rate Abdomen: Normal bowel sounds, Soft, No tenderness Extremities: No clubbing, No cyanosis, No edema Skin: Other (BULLOUS PEMPHIGOID LESIONS IN UPPER AND LOWER EXTREMITIES) Psych/Mental Status: Mental status NL MUSCULOSKELETAL: No joint tenderness, No deformity, No swelling Vitals VITALS Vital Signs Date Time Temp Pulse Resp B/P (MAP) Pulse Ox O2 Delivery O2 Flow Rate FiO2 06/02/19 11:00 97.6 70 16 108/54 (72) 70 Room Air 97.6 Labs Labs Laboratory Tests Test 06/01/19 15:50 06/01/19 16:11 06/01/19 23:35 06/02/19 07:30 White Blood Count 12.6 x10^3/uL (4.0-11.0) 8.4 x10^3/uL (4.0-11.0) Red Blood Count 5.75 x10^6/uL (4.30-5.70) 4.85 x10^6/uL (4.30-5.70) Hemoglobin 16.2 g/dL (13.0-17.5) 13.9 g/dL (13.0-17.5) Hematocrit 49.2 % (39.0-53.0) 41.5 % (39.0-53.0) Mean Corpuscular Volume 86 fL (79-100) 86 fL (79-100) Mean Corpuscular Hemoglobin 28 pg (25-35) 29 pg (25-35) Mean Corpuscular Hemoglobin Concent 33 g/dL (31-37) 34 g/dL (31-37) Red Cell Distribution Width 15.2 % (11.5-14.5) 15.6 % (11.5-14.5) Platelet Count 261 x10^3/uL (140-400) 211 x10^3/uL (140-400) Neutrophils (%) (Auto) 74 % (31-73) 65 % (31-73) Lymphocytes (%) (Auto) 13 % (24-48) 16 % (24-48) Monocytes (%) (Auto) 8 % (0-9) 11 % (0-9) Eosinophils (%) (Auto) 4 % (0-3) 8 % (0-3) Basophils (%) (Auto) 1 % (0-3) 1 % (0-3) Neutrophils # (Auto) 9.3 x10^3/uL (1.8-7.7) 5.5 x10^3/uL (1.8-7.7) Lymphocytes # (Auto) 1.6 x10^3/uL (1.0-4.8) 1.3 x10^3/uL (1.0-4.8) Monocytes # (Auto) 1.0 x10^3/uL (0.0-1.1) 0.9 x10^3/uL (0.0-1.1) Eosinophils # (Auto) 0.5 x10^3/uL (0.0-0.7) 0.7 x10^3/uL (0.0-0.7) Basophils # (Auto) 0.1 x10^3/uL (0.0-0.2) 0.0 x10^3/uL (0.0-0.2) Prothrombin Time 13.1 SEC (11.7-14.0) Prothromb Time International Ratio 1.0 (0.8-1.1) Activated Partial Thromboplast Time 32 SEC (24-38) Sodium Level 141 mmol/L (136-145) 142 mmol/L (136-145) Potassium Level 3.1 mmol/L (3.5-5.1) 3.1 mmol/L (3.5-5.1) Chloride Level 101 mmol/L (98-107) 109 mmol/L (98-107) Carbon Dioxide Level 26 mmol/L (21-32) 24 mmol/L (21-32) Anion Gap 14 (6-14) 9 (6-14) Blood Urea Nitrogen 15 mg/dL (8-26) 11 mg/dL (8-26) Creatinine 1.7 mg/dL (0.7-1.3) 1.6 mg/dL (0.7-1.3) Estimated GFR (Cockcroft-Gault) 40.0 42.9 BUN/Creatinine Ratio 9 (6-20) Glucose Level 76 mg/dL (70-99) 92 mg/dL (70-99) Lactic Acid Level 2.3 mmol/L (0.4-2.0) 1.5 mmol/L (0.4-2.0) Calcium Level 9.1 mg/dL (8.5-10.1) 8.0 mg/dL (8.5-10.1) Magnesium Level 2.1 mg/dL (1.8-2.4) Total Bilirubin 0.9 mg/dL (0.2-1.0) Aspartate Amino Transf (AST/SGOT) 20 U/L (15-37) Alanine Aminotransferase (ALT/SGPT) 8 U/L (16-63) Alkaline Phosphatase 76 U/L (46-116) Creatine Kinase 36 U/L (39-308) Creatine Kinase MB (Mass) 0.5 ng/mL (0.0-3.6) Creatine Kinase MB Relative Index % (0-4) Troponin I Quantitative < 0.017 ng/mL (0.000-0.055) MP-Ltp-T-Type Natriuretic Peptide 229 pg/mL (0-124) Total Protein 6.0 g/dL (6.4-8.2) Albumin 2.6 g/dL (3.4-5.0) Albumin/Globulin Ratio 0.8 (1.0-1.7) Lipase 77 U/L (73-393) Thyroid Stimulating Hormone (TSH) 8.645 uIU/mL (0.358-3.74) Bedside Troponin I 0.00 ng/ml (<0.08) Laboratory Tests Test 06/01/19 15:50 06/01/19 16:11 06/01/19 23:35 06/02/19 07:30 White Blood Count 12.6 x10^3/uL (4.0-11.0) 8.4 x10^3/uL (4.0-11.0) Red Blood Count 5.75 x10^6/uL (4.30-5.70) 4.85 x10^6/uL (4.30-5.70) Hemoglobin 16.2 g/dL (13.0-17.5) 13.9 g/dL (13.0-17.5) Hematocrit 49.2 % (39.0-53.0) 41.5 % (39.0-53.0) Mean Corpuscular Volume 86 fL (79-100) 86 fL (79-100) Mean Corpuscular Hemoglobin 28 pg (25-35) 29 pg (25-35) Mean Corpuscular Hemoglobin Concent 33 g/dL (31-37) 34 g/dL (31-37) Red Cell Distribution Width 15.2 % (11.5-14.5) 15.6 % (11.5-14.5) Platelet Count 261 x10^3/uL (140-400) 211 x10^3/uL (140-400) Neutrophils (%) (Auto) 74 % (31-73) 65 % (31-73) Lymphocytes (%) (Auto) 13 % (24-48) 16 % (24-48) Monocytes (%) (Auto) 8 % (0-9) 11 % (0-9) Eosinophils (%) (Auto) 4 % (0-3) 8 % (0-3) Basophils (%) (Auto) 1 % (0-3) 1 % (0-3) Neutrophils # (Auto) 9.3 x10^3/uL (1.8-7.7) 5.5 x10^3/uL (1.8-7.7) Lymphocytes # (Auto) 1.6 x10^3/uL (1.0-4.8) 1.3 x10^3/uL (1.0-4.8) Monocytes # (Auto) 1.0 x10^3/uL (0.0-1.1) 0.9 x10^3/uL (0.0-1.1) Eosinophils # (Auto) 0.5 x10^3/uL (0.0-0.7) 0.7 x10^3/uL (0.0-0.7) Basophils # (Auto) 0.1 x10^3/uL (0.0-0.2) 0.0 x10^3/uL (0.0-0.2) Prothrombin Time 13.1 SEC (11.7-14.0) Prothromb Time International Ratio 1.0 (0.8-1.1) Activated Partial Thromboplast Time 32 SEC (24-38) Sodium Level 141 mmol/L (136-145) 142 mmol/L (136-145) Potassium Level 3.1 mmol/L (3.5-5.1) 3.1 mmol/L (3.5-5.1) Chloride Level 101 mmol/L (98-107) 109 mmol/L (98-107) Carbon Dioxide Level 26 mmol/L (21-32) 24 mmol/L (21-32) Anion Gap 14 (6-14) 9 (6-14) Blood Urea Nitrogen 15 mg/dL (8-26) 11 mg/dL (8-26) Creatinine 1.7 mg/dL (0.7-1.3) 1.6 mg/dL (0.7-1.3) Estimated GFR (Cockcroft-Gault) 40.0 42.9 BUN/Creatinine Ratio 9 (6-20) Glucose Level 76 mg/dL (70-99) 92 mg/dL (70-99) Lactic Acid Level 2.3 mmol/L (0.4-2.0) 1.5 mmol/L (0.4-2.0) Calcium Level 9.1 mg/dL (8.5-10.1) 8.0 mg/dL (8.5-10.1) Magnesium Level 2.1 mg/dL (1.8-2.4) Total Bilirubin 0.9 mg/dL (0.2-1.0) Aspartate Amino Transf (AST/SGOT) 20 U/L (15-37) Alanine Aminotransferase (ALT/SGPT) 8 U/L (16-63) Alkaline Phosphatase 76 U/L (46-116) Creatine Kinase 36 U/L (39-308) Creatine Kinase MB (Mass) 0.5 ng/mL (0.0-3.6) Creatine Kinase MB Relative Index % (0-4) Troponin I Quantitative < 0.017 ng/mL (0.000-0.055) WM-Dkn-N-Type Natriuretic Peptide 229 pg/mL (0-124) Total Protein 6.0 g/dL (6.4-8.2) Albumin 2.6 g/dL (3.4-5.0) Albumin/Globulin Ratio 0.8 (1.0-1.7) Lipase 77 U/L (73-393) Thyroid Stimulating Hormone (TSH) 8.645 uIU/mL (0.358-3.74) Bedside Troponin I 0.00 ng/ml (<0.08) Assessment/Plan Assessment/Plan IMP CKD STAGE 3-CR OF 1.7 NOW - ABOUT SAME A YEAR AGO BULLOUS PEMPHIGOID HYPOTHYROIDISM HYPOKALEMIA PLAN REPLACE K HE HAS CKD WILL PLAN TO W/U OP HAVE ASKED HIM TO FOLLOW UP IN OFFICE IN 4 TO 8 WEEKS WILL SIGN OFF JIGNESH MACIAS MD Jun 02, 2019 12:03
[2019-06-02] MEDS ORDERED: POTASSIUM CHLORIDE 20 MEQ TABLET.ER. PO ONE (12:15)
--- NOTE | 2019-06-02 12:24 | PDOC ---
PROGRESS NOTES Chief Complaint Chief Complaint Bullous pemphigoid CKD Hypothyroidism Obesity BMI 30 History of Present Illness History of Present Illness On IV zosyn The leg lesions look veneer redrier and has some post inflammatory hyperpigmentation BUt the left armpit is red and inflammed and skin ribbing on skin Dw ID - cipro and doxy on dc would be appropriate for bullous pemphigoid Dr liu (derm) is trying to retire BUt he has not followed up on that RT forearm, fall/fx that happened 2 weeks ago LOng toenails too PLAN: KEep IV zosyn while in house PO cipro and doxy on dc HE will not go to any form of snu or rehab even if paid for Podiatry consult for toe nail clipping XRay that rt foreaem - ortho consult if needed Vitals Vitals Vital Signs Date Time Temp Pulse Resp B/P (MAP) Pulse Ox O2 Delivery O2 Flow Rate FiO2 06/02/19 11:00 97.6 70 16 108/54 (72) 70 Room Air 97.6 Physical Exam General: Alert, Oriented X3, Cooperative, No acute distress Heart: Regular rate Abdomen: Normal bowel sounds, Soft, No tenderness Extremities: No clubbing, No cyanosis, No edema Skin: Other (BULLOUS PEMPHIGOID LESIONS IN UPPER AND LOWER EXTREMITIES) Labs LABS Laboratory Tests Test 06/01/19 15:50 06/01/19 16:11 06/01/19 23:35 06/02/19 07:30 White Blood Count 12.6 x10^3/uL (4.0-11.0) 8.4 x10^3/uL (4.0-11.0) Red Blood Count 5.75 x10^6/uL (4.30-5.70) 4.85 x10^6/uL (4.30-5.70) Hemoglobin 16.2 g/dL (13.0-17.5) 13.9 g/dL (13.0-17.5) Hematocrit 49.2 % (39.0-53.0) 41.5 % (39.0-53.0) Mean Corpuscular Volume 86 fL (79-100) 86 fL (79-100) Mean Corpuscular Hemoglobin 28 pg (25-35) 29 pg (25-35) Mean Corpuscular Hemoglobin Concent 33 g/dL (31-37) 34 g/dL (31-37) Red Cell Distribution Width 15.2 % (11.5-14.5) 15.6 % (11.5-14.5) Platelet Count 261 x10^3/uL (140-400) 211 x10^3/uL (140-400) Neutrophils (%) (Auto) 74 % (31-73) 65 % (31-73) Lymphocytes (%) (Auto) 13 % (24-48) 16 % (24-48) Monocytes (%) (Auto) 8 % (0-9) 11 % (0-9) Eosinophils (%) (Auto) 4 % (0-3) 8 % (0-3) Basophils (%) (Auto) 1 % (0-3) 1 % (0-3) Neutrophils # (Auto) 9.3 x10^3/uL (1.8-7.7) 5.5 x10^3/uL (1.8-7.7) Lymphocytes # (Auto) 1.6 x10^3/uL (1.0-4.8) 1.3 x10^3/uL (1.0-4.8) Monocytes # (Auto) 1.0 x10^3/uL (0.0-1.1) 0.9 x10^3/uL (0.0-1.1) Eosinophils # (Auto) 0.5 x10^3/uL (0.0-0.7) 0.7 x10^3/uL (0.0-0.7) Basophils # (Auto) 0.1 x10^3/uL (0.0-0.2) 0.0 x10^3/uL (0.0-0.2) Prothrombin Time 13.1 SEC (11.7-14.0) Prothromb Time International Ratio 1.0 (0.8-1.1) Activated Partial Thromboplast Time 32 SEC (24-38) Sodium Level 141 mmol/L (136-145) 142 mmol/L (136-145) Potassium Level 3.1 mmol/L (3.5-5.1) 3.1 mmol/L (3.5-5.1) Chloride Level 101 mmol/L (98-107) 109 mmol/L (98-107) Carbon Dioxide Level 26 mmol/L (21-32) 24 mmol/L (21-32) Anion Gap 14 (6-14) 9 (6-14) Blood Urea Nitrogen 15 mg/dL (8-26) 11 mg/dL (8-26) Creatinine 1.7 mg/dL (0.7-1.3) 1.6 mg/dL (0.7-1.3) Estimated GFR (Cockcroft-Gault) 40.0 42.9 BUN/Creatinine Ratio 9 (6-20) Glucose Level 76 mg/dL (70-99) 92 mg/dL (70-99) Lactic Acid Level 2.3 mmol/L (0.4-2.0) 1.5 mmol/L (0.4-2.0) Calcium Level 9.1 mg/dL (8.5-10.1) 8.0 mg/dL (8.5-10.1) Magnesium Level 2.1 mg/dL (1.8-2.4) Total Bilirubin 0.9 mg/dL (0.2-1.0) Aspartate Amino Transf (AST/SGOT) 20 U/L (15-37) Alanine Aminotransferase (ALT/SGPT) 8 U/L (16-63) Alkaline Phosphatase 76 U/L (46-116) Creatine Kinase 36 U/L (39-308) Creatine Kinase MB (Mass) 0.5 ng/mL (0.0-3.6) Creatine Kinase MB Relative Index % (0-4) Troponin I Quantitative < 0.017 ng/mL (0.000-0.055) EG-Xlh-E-Type Natriuretic Peptide 229 pg/mL (0-124) Total Protein 6.0 g/dL (6.4-8.2) Albumin 2.6 g/dL (3.4-5.0) Albumin/Globulin Ratio 0.8 (1.0-1.7) Lipase 77 U/L (73-393) Thyroid Stimulating Hormone (TSH) 8.645 uIU/mL (0.358-3.74) Bedside Troponin I 0.00 ng/ml (<0.08) Review of Systems Review of Systems left armpit hurts, the rest 14 pt neg aside from weak and skin lesions may hurt sometimes Assessment and Plan Assessmemt and Plan Problems Medical Problems: (1) KUSUM (acute kidney injury) Status: Acute (2) Bullous pemphigoid Status: Acute (3) Cellulitis of both lower extremities Status: Acute (4) HTN (hypertension) Status: Chronic (5) Renal insufficiency Status: Acute (6) SIRS (systemic inflammatory response syndrome) Status: Acute Comment Review of Relevant I have reviewed the following items sal (where applicable) has been applied. Labs Laboratory Tests Test 06/01/19 15:50 06/01/19 16:11 06/01/19 23:35 06/02/19 07:30 White Blood Count 12.6 x10^3/uL (4.0-11.0) 8.4 x10^3/uL (4.0-11.0) Red Blood Count 5.75 x10^6/uL (4.30-5.70) 4.85 x10^6/uL (4.30-5.70) Hemoglobin 16.2 g/dL (13.0-17.5) 13.9 g/dL (13.0-17.5) Hematocrit 49.2 % (39.0-53.0) 41.5 % (39.0-53.0) Mean Corpuscular Volume 86 fL (79-100) 86 fL (79-100) Mean Corpuscular Hemoglobin 28 pg (25-35) 29 pg (25-35) Mean Corpuscular Hemoglobin Concent 33 g/dL (31-37) 34 g/dL (31-37) Red Cell Distribution Width 15.2 % (11.5-14.5) 15.6 % (11.5-14.5) Platelet Count 261 x10^3/uL (140-400) 211 x10^3/uL (140-400) Neutrophils (%) (Auto) 74 % (31-73) 65 % (31-73) Lymphocytes (%) (Auto) 13 % (24-48) 16 % (24-48) Monocytes (%) (Auto) 8 % (0-9) 11 % (0-9) Eosinophils (%) (Auto) 4 % (0-3) 8 % (0-3) Basophils (%) (Auto) 1 % (0-3) 1 % (0-3) Neutrophils # (Auto) 9.3 x10^3/uL (1.8-7.7) 5.5 x10^3/uL (1.8-7.7) Lymphocytes # (Auto) 1.6 x10^3/uL (1.0-4.8) 1.3 x10^3/uL (1.0-4.8) Monocytes # (Auto) 1.0 x10^3/uL (0.0-1.1) 0.9 x10^3/uL (0.0-1.1) Eosinophils # (Auto) 0.5 x10^3/uL (0.0-0.7) 0.7 x10^3/uL (0.0-0.7) Basophils # (Auto) 0.1 x10^3/uL (0.0-0.2) 0.0 x10^3/uL (0.0-0.2) Prothrombin Time 13.1 SEC (11.7-14.0) Prothromb Time International Ratio 1.0 (0.8-1.1) Activated Partial Thromboplast Time 32 SEC (24-38) Sodium Level 141 mmol/L (136-145) 142 mmol/L (136-145) Potassium Level 3.1 mmol/L (3.5-5.1) 3.1 mmol/L (3.5-5.1) Chloride Level 101 mmol/L (98-107) 109 mmol/L (98-107) Carbon Dioxide Level 26 mmol/L (21-32) 24 mmol/L (21-32) Anion Gap 14 (6-14) 9 (6-14) Blood Urea Nitrogen 15 mg/dL (8-26) 11 mg/dL (8-26) Creatinine 1.7 mg/dL (0.7-1.3) 1.6 mg/dL (0.7-1.3) Estimated GFR (Cockcroft-Gault) 40.0 42.9 BUN/Creatinine Ratio 9 (6-20) Glucose Level 76 mg/dL (70-99) 92 mg/dL (70-99) Lactic Acid Level 2.3 mmol/L (0.4-2.0) 1.5 mmol/L (0.4-2.0) Calcium Level 9.1 mg/dL (8.5-10.1) 8.0 mg/dL (8.5-10.1) Magnesium Level 2.1 mg/dL (1.8-2.4) Total Bilirubin 0.9 mg/dL (0.2-1.0) Aspartate Amino Transf (AST/SGOT) 20 U/L (15-37) Alanine Aminotransferase (ALT/SGPT) 8 U/L (16-63) Alkaline Phosphatase 76 U/L (46-116) Creatine Kinase 36 U/L (39-308) Creatine Kinase MB (Mass) 0.5 ng/mL (0.0-3.6) Creatine Kinase MB Relative Index % (0-4) Troponin I Quantitative < 0.017 ng/mL (0.000-0.055) CQ-Xdw-M-Type Natriuretic Peptide 229 pg/mL (0-124) Total Protein 6.0 g/dL (6.4-8.2) Albumin 2.6 g/dL (3.4-5.0) Albumin/Globulin Ratio 0.8 (1.0-1.7) Lipase 77 U/L (73-393) Thyroid Stimulating Hormone (TSH) 8.645 uIU/mL (0.358-3.74) Bedside Troponin I 0.00 ng/ml (<0.08) Laboratory Tests Test 06/01/19 15:50 06/01/19 16:11 06/01/19 23:35 06/02/19 07:30 White Blood Count 12.6 x10^3/uL (4.0-11.0) 8.4 x10^3/uL (4.0-11.0) Red Blood Count 5.75 x10^6/uL (4.30-5.70) 4.85 x10^6/uL (4.30-5.70) Hemoglobin 16.2 g/dL (13.0-17.5) 13.9 g/dL (13.0-17.5) Hematocrit 49.2 % (39.0-53.0) 41.5 % (39.0-53.0) Mean Corpuscular Volume 86 fL (79-100) 86 fL (79-100) Mean Corpuscular Hemoglobin 28 pg (25-35) 29 pg (25-35) Mean Corpuscular Hemoglobin Concent 33 g/dL (31-37) 34 g/dL (31-37) Red Cell Distribution Width 15.2 % (11.5-14.5) 15.6 % (11.5-14.5) Platelet Count 261 x10^3/uL (140-400) 211 x10^3/uL (140-400) Neutrophils (%) (Auto) 74 % (31-73) 65 % (31-73) Lymphocytes (%) (Auto) 13 % (24-48) 16 % (24-48) Monocytes (%) (Auto) 8 % (0-9) 11 % (0-9) Eosinophils (%) (Auto) 4 % (0-3) 8 % (0-3) Basophils (%) (Auto) 1 % (0-3) 1 % (0-3) Neutrophils # (Auto) 9.3 x10^3/uL (1.8-7.7) 5.5 x10^3/uL (1.8-7.7) Lymphocytes # (Auto) 1.6 x10^3/uL (1.0-4.8) 1.3 x10^3/uL (1.0-4.8) Monocytes # (Auto) 1.0 x10^3/uL (0.0-1.1) 0.9 x10^3/uL (0.0-1.1) Eosinophils # (Auto) 0.5 x10^3/uL (0.0-0.7) 0.7 x10^3/uL (0.0-0.7) Basophils # (Auto) 0.1 x10^3/uL (0.0-0.2) 0.0 x10^3/uL (0.0-0.2) Prothrombin Time 13.1 SEC (11.7-14.0) Prothromb Time International Ratio 1.0 (0.8-1.1) Activated Partial Thromboplast Time 32 SEC (24-38) Sodium Level 141 mmol/L (136-145) 142 mmol/L (136-145) Potassium Level 3.1 mmol/L (3.5-5.1) 3.1 mmol/L (3.5-5.1) Chloride Level 101 mmol/L (98-107) 109 mmol/L (98-107) Carbon Dioxide Level 26 mmol/L (21-32) 24 mmol/L (21-32) Anion Gap 14 (6-14) 9 (6-14) Blood Urea Nitrogen 15 mg/dL (8-26) 11 mg/dL (8-26) Creatinine 1.7 mg/dL (0.7-1.3) 1.6 mg/dL (0.7-1.3) Estimated GFR (Cockcroft-Gault) 40.0 42.9 BUN/Creatinine Ratio 9 (6-20) Glucose Level 76 mg/dL (70-99) 92 mg/dL (70-99) Lactic Acid Level 2.3 mmol/L (0.4-2.0) 1.5 mmol/L (0.4-2.0) Calcium Level 9.1 mg/dL (8.5-10.1) 8.0 mg/dL (8.5-10.1) Magnesium Level 2.1 mg/dL (1.8-2.4) Total Bilirubin 0.9 mg/dL (0.2-1.0) Aspartate Amino Transf (AST/SGOT) 20 U/L (15-37) Alanine Aminotransferase (ALT/SGPT) 8 U/L (16-63) Alkaline Phosphatase 76 U/L (46-116) Creatine Kinase 36 U/L (39-308) Creatine Kinase MB (Mass) 0.5 ng/mL (0.0-3.6) Creatine Kinase MB Relative Index % (0-4) Troponin I Quantitative < 0.017 ng/mL (0.000-0.055) NV-Zfr-P-Type Natriuretic Peptide 229 pg/mL (0-124) Total Protein 6.0 g/dL (6.4-8.2) Albumin 2.6 g/dL (3.4-5.0) Albumin/Globulin Ratio 0.8 (1.0-1.7) Lipase 77 U/L (73-393) Thyroid Stimulating Hormone (TSH) 8.645 uIU/mL (0.358-3.74) Bedside Troponin I 0.00 ng/ml (<0.08) Medications Current Medications Piperacillin Sod/ Tazobactam Sod 4.5 gm/Sodium Chloride 100 ml @ 200 mls/hr 1X ONCE IV Last administered on 06/01/19at 17:19; Start 06/01/19 at 15:30; Stop 06/01/19 at 15:59; Status DC Fentanyl Citrate (Fentanyl 2ml Vial) 50 mcg PRN Q15MIN PRN IV PAIN GREATER THAN 3/10 Last administered on 06/01/19at 17:53; Start 06/01/19 at 15:30; Stop 06/01/19 at 18:50; Status DC Sodium Chloride 1,000 ml @ 1,000 mls/hr Q1H IV Last administered on 06/01/19at 16:18; Start 06/01/19 at 15:24; Stop 06/01/19 at 16:23; Status DC Ondansetron HCl (Zofran) 4 mg 1X ONCE IVP Last administered on 06/01/19at 16:19; Start 06/01/19 at 15:30; Stop 06/01/19 at 15:34; Status DC Piperacillin Sod/ Tazobactam Sod 3.375 gm/Sodium Chloride 50 ml @ 100 mls/hr Q6HRS IV Last administered on 06/02/19at 06:07; Start 06/02/19 at 00:00 Sodium Chloride (Normal Saline Flush) 3 ml QSHIFT PRN IV AFTER MEDS AND BLOOD DRAWS; Start 06/01/19 at 18:15 Sodium Chloride 1,000 ml @ 100 mls/hr Q10H IV Last administered on 06/02/19at 04:54; Start 06/01/19 at 19:00 Ondansetron HCl (Zofran) 4 mg PRN Q4HRS PRN IV NAUSEA/VOMITING; Start 06/01/19 at 18:15 Acetaminophen (Tylenol) 650 mg PRN Q4HRS PRN PO TEMP OVER 100.4F OR MILD PAIN; Start 06/01/19 at 18:15; Status UNV Al Hydroxide/Mg Hydroxide (Mylanta Plus Xs) 30 ml PRN DAILY PRN PO HEARTBURN / GAS; Start 06/01/19 at 18:15 Clonidine HCl (Catapres) 0.1 mg PRN Q6HRS PRN PO SBP>160 OR DBP>90; Start 06/01/19 at 18:15 Docusate Sodium (Colace) 100 mg PRN BID PRN PO CONSTIPATION; Start 06/01/19 at 18:15 Albuterol/ Ipratropium (Duoneb) 3 ml Q4H NEB Last administered on 06/01/19at 20:43; Start 06/01/19 at 18:00 Guaifenesin (Robitussin) 200 mg PRN Q4HRS PRN PO COUGH; Start 06/01/19 at 18:15 Lorazepam (Ativan) 0.5 mg PRN Q4HRS PRN PO ANXIETY / AGITATION; Start 06/01/19 at 18:15 Enoxaparin Sodium (Lovenox 40mg Syringe) 40 mg DAILY SQ ; Start 06/02/19 at 09:00 Fentanyl Citrate (Fentanyl 2ml Vial) 50 mcg PRN Q1HR PRN IV PAIN Last administered on 06/01/19at 18:52; Start 06/01/19 at 18:45; Stop 06/02/19 at 18:44 Sodium Chloride 1,000 ml @ 1,000 mls/hr 1X ONCE IV Last administered on 06/01/19at 19:54; Start 06/01/19 at 19:30; Stop 06/01/19 at 20:29; Status DC Sodium Chloride 1,000 ml @ 125 mls/hr 1X ONCE IV Last administered on 06/01/19at 19:56; Start 06/01/19 at 19:30; Stop 06/02/19 at 03:29; Status DC Potassium Chloride (Klor-Con) 40 meq 1X ONCE PO Last administered on 06/01/19at 22:08; Start 06/01/19 at 19:30; Stop 06/01/19 at 19:31; Status DC Influenza Virus Vaccine Quadrival (Afluria Quad 2019-20 (3yr Up) Syringe) 0.5 ml ONCE ONCE VAX IM ; Start 06/02/19 at 09:00; Stop 06/02/19 at 09:01; Status DC Levothyroxine Sodium (Synthroid) 100 mcg DAILY07 PO Last administered on 06/02/19at 09:38; Start 06/02/19 at 09:00 Acetaminophen/ Hydrocodone Bitart (Lortab 5/325) 1 tab PRN Q4HRS PRN PO PAIN; Start 06/02/19 at 09:00; Status UNV Tramadol HCl (Ultram) 50 mg PRN Q6HRS PRN PO PAIN; Start 06/02/19 at 09:15 Lactobacillus Rhamnosus (Culturelle) 1 cap BID PO ; Start 06/02/19 at 10:00 Potassium Chloride (Klor-Con) 20 meq 1X ONCE PO ; Start 06/02/19 at 12:15; Stop 06/02/19 at 12:16 Active Scripts Active Reported Levothyroxine Sodium 100 Mcg Tablet 1 Tab PO DAILY Vitals/I & O Vital Sign - Last 24 Hours 06/01/19 06/01/19 06/01/19 06/01/19 14:50 15:56 16:41 17:41 Temp 97.3 97.3 Pulse 82 76 88 75 Resp 20 22 20 B/P (MAP) 107/74 (85) Pulse Ox 94 97 97 96 O2 Delivery Room Air 06/01/19 06/01/19 06/01/19 06/01/19 18:41 19:00 19:30 20:42 Temp 98.1 98.1 Pulse 70 74 69 Resp 24 16 B/P (MAP) 93/45 (61) Pulse Ox 95 95 96 94 O2 Delivery Room Air Room Air 06/01/19 06/02/19 06/02/19 06/02/19 23:00 03:00 07:00 08:00 Temp 98.3 98.1 98.0 98.3 98.1 98.0 Pulse 88 82 76 Resp 18 B/P (MAP) 94/47 (63) 100/45 (63) 120/59 (79) Pulse Ox 95 97 97 O2 Delivery Room Air Room Air 06/02/19 11:00 Temp 97.6 97.6 Pulse 70 Resp 16 B/P (MAP) 108/54 (72) Pulse Ox 70 O2 Delivery Room Air Intake and Output 06/01/19 06/01/19 06/02/19 15:00 23:00 07:00 Intake Total 2200 ml 1000 ml Balance 2200 ml 1000 ml ALIREZA FLETCHER MD Jun 02, 2019 12:24
[2019-06-02] MEDS: traMADol 50 MG TABLET PO PRN ×2 (12:35→20:50)
--- NOTE | 2019-06-02 14:14 | NUR ---
SS following for discharge planning. SS reviewed pt chart. Pt is from home and is currently on room air. SS met with pt. Pt reported that his family has applied for Medicaid and once approved he will move to [facility]. Pt has Medicare A&B. PT/OT ordered. SS will await PT/OT evaluations and recommendations and will proceed accordingly with discharge planning.
[2019-06-02] MEDS: fentaNYL PF VIAL 100 MCG/2 ML VIAL IV PRN ×2 (14:43→16:18)
--- NOTE | 2019-06-02 16:11 | RAD ---
Examination: FOREARM RIGHT History: Fracture, follow-up Comparison/Correlation: None Findings: 2 view right forearm x-ray exam was performed. A splint material is noted. Joint spaces are unremarkable. The third metacarpal shaft oblique fracture is again seen without significant change. The forearm is unremarkable. Impression: No change in third metacarpal fracture. Electronically signed by: Martinez Murphy MD (06/02/2019 4:08 PM) [facility]
--- NOTE | 2019-06-02 16:12 | NUR ---
Wound Care Wound care consult for blisters to BLE. Pt is well known to WC team as C patient. Pt has bolus pemphigoid and gets blisters on BLE. Pt also has blisters in left axilla. Cleansed wounds and applied xeroform, ABD pads and kerlix gauze, recommend to change EOD. Pt has new skin and scar tissue to coccyx but no open area at this time. WC will continue to follow for possible changes.
[2019-06-02] MEDS: LORazepam 0.5 MG TABLET PO PRN (20:50)
--- NOTE | 2019-06-02 22:38 | CONS ---
DATE OF CONSULTATION: 06/02/2019 ORTHOPEDIC CONSULTATION REASON FOR CONSULTATION: Right hand fracture. HISTORY OF PRESENT ILLNESS: The patient is a 68-year-old male who indicates that he fell backward, tried to throws arm behind him to steady himself and hit his right hand on something a couple of weeks ago. He was seen in the Emergency Department, splinted and was scheduled for orthopedic followup, but had not had a chance to, he said he did not bother with the followup as of yet and still has a splint on his right hand. He says his pain is less since the injury, but is admitted today for bilateral lower extremity swelling with his skin weeping and draining. He has followed up with the [facility] over the past month or so for a condition called bullous pemphigoid. PAST MEDICAL HISTORY: Significant for the skin condition above as well as hypertension and hypothyroidism. PAST SURGICAL HISTORY: Denies any previous surgical history. SOCIAL HISTORY: Denies tobacco, alcohol or drug use. Independently ambulatory up until the admission time. MEDICATIONS: List is reviewed. ALLERGIES: INCLUDE ACETAMINOPHEN, MORPHINE AND SHELLFISH. REVIEW OF SYSTEMS: Significant for the worsening leg swelling and weeping and drainage and the more remote right hand injury. Denies any other joint pain, focal weakness, numbness, tingling, chest pain, shortness of breath. No head trauma associated with the previous fall. Denies neck or back pain. PHYSICAL EXAMINATION: His splint is intact. He has really only mild pain with flexion and extension of the fingers. Flexor superficialis profundus and extensor function is intact. Sensation and capillary refill are intact to the fingers on the right hand as well. There is no evidence of any rotation. He has normal examination of the contralateral hand and wrist, bilateral elbows and shoulders. IMAGING: X-rays of the right hand show an oblique third metacarpal shaft fracture on the right hand that is overall acceptably aligned up. No joint involvement. IMPRESSION: Right third oblique metacarpal shaft fracture acceptably aligned. TREATMENT PLAN: I went over with him that we typically keep this splinted for about a period of 4 weeks and although he may have to work out a little bit of stiffness. I do not see any rotation or other indication for any type of surgical or more aggressive immobilization. He can use the hand for fine motor use as tolerated in the interim. Follow up with Orthopedics in about 2 weeks for repeat examination and x-rays out of his splint. VARSHA PETERS MD DR: JAVID/julian JOB#: [id number] / [id number]
[2019-06-02] MEDS ORDERED: ALBUTEROL SULFATE 2.5 MG/3 ML NEBU. NEB PRN (23:45)
[2019-06-03] MEDS: PIPERACILLIN/TAZOBACTAM 3.375 GM in IV NORMAL SALINE 50ML 50 ML IV SCH ×5 (00:10→23:34)
[2019-06-03] MEDS: IV NORMAL SALINE 1000ML BAG 1,000 ML IV SCH ×3 (00:11→16:44)
[2019-06-03 00:55] LABS: BILIRUBIN,URINE NEGATIVE (NEG); CLARITY,URINE CLEAR; COLOR,URINE YELLOW; NITRITE,URINE NEGATIVE (NEG); PROTEIN,URINE NEGATIVE (NEG-TRACE); UROBILINOGEN,URINE 0.2 mg/dL (0.2 mg/dL)
[2019-06-03 01:05] LABS: AMORPHOUS SEDIMENT,UR PRESENT /HPF; BACTERIA,URINE MODERATE /HPF (0-FEW); BARBITURATES NEG (NEG); BENZODIAZEPINES NEG (NEG); CANNABINOIDS NEG (NEG); COCAINE NEG (NEG); HYALINE CASTS, URINE FEW /HPF; METHADONE NEG (NEG); OPIATES NEG (NEG); PHENCYCLIDINE NEG (NEG); SQUAMOUS EPITHELIAL CELL,UR FEW /LPF
[2019-06-03 01:11] LABS: AMPHETAMINE/METHAMPHETAMINE NEG (NEG)
[2019-06-03 03:00] VITALS: BP 98/45
[2019-06-03] MEDS: LORazepam 0.5 MG TABLET PO PRN (05:12)
[2019-06-03] MEDS: traMADol 50 MG TABLET PO PRN ×3 (05:12→16:47)
[2019-06-03] MEDS: LEVOTHYROXINE 100 MCG TABLET PO SCH (05:12)
[2019-06-03 07:00] VITALS: BP 111/68
[2019-06-03] MEDS: LACTOBACILLUS RHAMNOSUS GG 1 CAPSULE. PO SCH ×2 (07:56→21:54)
[2019-06-03] MEDS: ENOXAPARIN 40 MG/0.4 ML SYRINGE. SQ SCH (07:56)
--- NOTE | 2019-06-03 09:23 | PDOC ---
PROGRESS NOTES Chief Complaint Chief Complaint Bullous pemphigoid CKD Hypothyroidism Obesity BMI 30 Long toe nails RT forearm fracture - on track in healing History of Present Illness History of Present Illness On IV zosyn The leg lesions look vacuum drier tender and has some post inflammatory hyperpigmentation BUt the left armpit is red and inflammed and skin ribbing on skin Dw ID - cipro and doxy on dc would be appropriate for bullous pemphigoid Dr liu (derm) is trying to retire RT forearm interval xray shows appropriate healing Ortho has advised CPM and interval xray 2 weeks and ff up OP 2 weeks ortho I tried sending him home today, but he is conerned he cant manage at home PT note yesterday said he refused to participate - they will try again LOng toenails too - podiatry consulted wednesday PLAN: KEep IV zosyn while in house PO cipro and doxy on dc SNUs creen after he participates with PTif that is recommended Podiatry consult for toe nail clipping ff up ortho 2 weeks with interval forearm xray Dw RN Ashvin Vitals Vitals Vital Signs Date Time Temp Pulse Resp B/P (MAP) Pulse Ox O2 Delivery O2 Flow Rate FiO2 06/03/19 07:17 Room Air 06/03/19 07:00 97.9 85 16 111/68 (82) 92 97.9 Physical Exam General: Alert, Oriented X3, Cooperative, No acute distress Heart: Regular rate Abdomen: Normal bowel sounds, Soft, No tenderness Extremities: No clubbing, No cyanosis, No edema Skin: Other (BULLOUS PEMPHIGOID LESIONS IN UPPER AND LOWER EXTREMITIES) Labs LABS Laboratory Tests Test 06/02/19 23:10 Urine Collection Type Unknown Urine Color Yellow Urine Clarity Clear Urine pH 5.0 Urine Specific [place] >=1.030 Urine Protein Negative mg/dL (NEG-TRACE) Urine Glucose (UA) Negative mg/dL (NEG) Urine Ketones (Stick) Trace mg/dL (NEG) Urine Blood Negative (NEG) Urine Nitrite Negative (NEG) Urine Bilirubin Negative (NEG) Urine Urobilinogen Dipstick 0.2 mg/dL (0.2 mg/dL) Urine Leukocyte Esterase Small (NEG) Urine RBC 1-2 /HPF (0-2) Urine WBC 5-10 /HPF (0-4) Urine Squamous Epithelial Cells Few /LPF Urine Amorphous Sediment Present /HPF Urine Bacteria Moderate /HPF (0-FEW) Urine Hyaline Casts Few /HPF Urine Opiates Screen Neg (NEG) Urine Methadone Screen Neg (NEG) Urine Barbiturates Neg (NEG) Urine Phencyclidine Screen Neg (NEG) Urine Amphetamine/Methamphetamine Neg (NEG) Urine Benzodiazepines Screen Neg (NEG) Urine Cocaine Screen Neg (NEG) Urine Cannabinoids Screen Neg (NEG) Urine Ethyl Alcohol Neg (NEG) Review of Systems Review of Systems weak, rt forearm ok, let armpit hurts, rest 14 pt neg Assessment and Plan Assessmemt and Plan Problems Medical Problems: (1) KUSUM (acute kidney injury) Status: Acute (2) Bullous pemphigoid Status: Acute (3) Cellulitis of both lower extremities Status: Acute (4) HTN (hypertension) Status: Chronic (5) Renal insufficiency Status: Acute (6) SIRS (systemic inflammatory response syndrome) Status: Acute Comment Review of Relevant I have reviewed the following items sal (where applicable) has been applied. Labs Laboratory Tests Test 06/01/19 15:50 06/01/19 16:11 06/01/19 23:35 06/02/19 07:30 White Blood Count 12.6 x10^3/uL (4.0-11.0) 8.4 x10^3/uL (4.0-11.0) Red Blood Count 5.75 x10^6/uL (4.30-5.70) 4.85 x10^6/uL (4.30-5.70) Hemoglobin 16.2 g/dL (13.0-17.5) 13.9 g/dL (13.0-17.5) Hematocrit 49.2 % (39.0-53.0) 41.5 % (39.0-53.0) Mean Corpuscular Volume 86 fL (79-100) 86 fL (79-100) Mean Corpuscular Hemoglobin 28 pg (25-35) 29 pg (25-35) Mean Corpuscular Hemoglobin Concent 33 g/dL (31-37) 34 g/dL (31-37) Red Cell Distribution Width 15.2 % (11.5-14.5) 15.6 % (11.5-14.5) Platelet Count 261 x10^3/uL (140-400) 211 x10^3/uL (140-400) Neutrophils (%) (Auto) 74 % (31-73) 65 % (31-73) Lymphocytes (%) (Auto) 13 % (24-48) 16 % (24-48) Monocytes (%) (Auto) 8 % (0-9) 11 % (0-9) Eosinophils (%) (Auto) 4 % (0-3) 8 % (0-3) Basophils (%) (Auto) 1 % (0-3) 1 % (0-3) Neutrophils # (Auto) 9.3 x10^3/uL (1.8-7.7) 5.5 x10^3/uL (1.8-7.7) Lymphocytes # (Auto) 1.6 x10^3/uL (1.0-4.8) 1.3 x10^3/uL (1.0-4.8) Monocytes # (Auto) 1.0 x10^3/uL (0.0-1.1) 0.9 x10^3/uL (0.0-1.1) Eosinophils # (Auto) 0.5 x10^3/uL (0.0-0.7) 0.7 x10^3/uL (0.0-0.7) Basophils # (Auto) 0.1 x10^3/uL (0.0-0.2) 0.0 x10^3/uL (0.0-0.2) Prothrombin Time 13.1 SEC (11.7-14.0) Prothromb Time International Ratio 1.0 (0.8-1.1) Activated Partial Thromboplast Time 32 SEC (24-38) Sodium Level 141 mmol/L (136-145) 142 mmol/L (136-145) Potassium Level 3.1 mmol/L (3.5-5.1) 3.1 mmol/L (3.5-5.1) Chloride Level 101 mmol/L (98-107) 109 mmol/L (98-107) Carbon Dioxide Level 26 mmol/L (21-32) 24 mmol/L (21-32) Anion Gap 14 (6-14) 9 (6-14) Blood Urea Nitrogen 15 mg/dL (8-26) 11 mg/dL (8-26) Creatinine 1.7 mg/dL (0.7-1.3) 1.6 mg/dL (0.7-1.3) Estimated GFR (Cockcroft-Gault) 40.0 42.9 BUN/Creatinine Ratio 9 (6-20) Glucose Level 76 mg/dL (70-99) 92 mg/dL (70-99) Lactic Acid Level 2.3 mmol/L (0.4-2.0) 1.5 mmol/L (0.4-2.0) Calcium Level 9.1 mg/dL (8.5-10.1) 8.0 mg/dL (8.5-10.1) Magnesium Level 2.1 mg/dL (1.8-2.4) Total Bilirubin 0.9 mg/dL (0.2-1.0) Aspartate Amino Transf (AST/SGOT) 20 U/L (15-37) Alanine Aminotransferase (ALT/SGPT) 8 U/L (16-63) Alkaline Phosphatase 76 U/L (46-116) Creatine Kinase 36 U/L (39-308) Creatine Kinase MB (Mass) 0.5 ng/mL (0.0-3.6) Creatine Kinase MB Relative Index % (0-4) Troponin I Quantitative < 0.017 ng/mL (0.000-0.055) PT-Cjq-[id number]-Type Natriuretic Peptide 229 pg/mL (0-124) Total Protein 6.0 g/dL (6.4-8.2) Albumin 2.6 g/dL (3.4-5.0) Albumin/Globulin Ratio 0.8 (1.0-1.7) Lipase 77 U/L (73-393) Thyroid Stimulating Hormone (TSH) 8.645 uIU/mL (0.358-3.74) Bedside Troponin I 0.00 ng/ml (<0.08) Test 06/02/19 23:10 Urine Collection Type Unknown Urine Color Yellow Urine Clarity Clear Urine pH 5.0 Urine Specific [place] >=1.030 Urine Protein Negative mg/dL (NEG-TRACE) Urine Glucose (UA) Negative mg/dL (NEG) Urine Ketones (Stick) Trace mg/dL (NEG) Urine Blood Negative (NEG) Urine Nitrite Negative (NEG) Urine Bilirubin Negative (NEG) Urine Urobilinogen Dipstick 0.2 mg/dL (0.2 mg/dL) Urine Leukocyte Esterase Small (NEG) Urine RBC 1-2 /HPF (0-2) Urine WBC 5-10 /HPF (0-4) Urine Squamous Epithelial Cells Few /LPF Urine Amorphous Sediment Present /HPF Urine Bacteria Moderate /HPF (0-FEW) Urine Hyaline Casts Few /HPF Urine Opiates Screen Neg (NEG) Urine Methadone Screen Neg (NEG) Urine Barbiturates Neg (NEG) Urine Phencyclidine Screen Neg (NEG) Urine Amphetamine/Methamphetamine Neg (NEG) Urine Benzodiazepines Screen Neg (NEG) Urine Cocaine Screen Neg (NEG) Urine Cannabinoids Screen Neg (NEG) Urine Ethyl Alcohol Neg (NEG) Laboratory Tests Test 06/02/19 23:10 Urine Collection Type Unknown Urine Color Yellow Urine Clarity Clear Urine pH 5.0 Urine Specific [place] >=1.030 Urine Protein Negative mg/dL (NEG-TRACE) Urine Glucose (UA) Negative mg/dL (NEG) Urine Ketones (Stick) Trace mg/dL (NEG) Urine Blood Negative (NEG) Urine Nitrite Negative (NEG) Urine Bilirubin Negative (NEG) Urine Urobilinogen Dipstick 0.2 mg/dL (0.2 mg/dL) Urine Leukocyte Esterase Small (NEG) Urine RBC 1-2 /HPF (0-2) Urine WBC 5-10 /HPF (0-4) Urine Squamous Epithelial Cells Few /LPF Urine Amorphous Sediment Present /HPF Urine Bacteria Moderate /HPF (0-FEW) Urine Hyaline Casts Few /HPF Urine Opiates Screen Neg (NEG) Urine Methadone Screen Neg (NEG) Urine Barbiturates Neg (NEG) Urine Phencyclidine Screen Neg (NEG) Urine Amphetamine/Methamphetamine Neg (NEG) Urine Benzodiazepines Screen Neg (NEG) Urine Cocaine Screen Neg (NEG) Urine Cannabinoids Screen Neg (NEG) Urine Ethyl Alcohol Neg (NEG) Microbiology 06/01/19 Blood Culture - Preliminary, Resulted NO GROWTH AFTER 1 DAY Medications Current Medications Piperacillin Sod/ Tazobactam Sod 4.5 gm/Sodium Chloride 100 ml @ 200 mls/hr 1X ONCE IV Last administered on 06/01/19at 17:19; Start 06/01/19 at 15:30; Stop 06/01/19 at 15:59; Status DC Fentanyl Citrate (Fentanyl 2ml Vial) 50 mcg PRN Q15MIN PRN IV PAIN GREATER THAN 3/10 Last administered on 06/01/19at 17:53; Start 06/01/19 at 15:30; Stop 06/01/19 at 18:50; Status DC Sodium Chloride 1,000 ml @ 1,000 mls/hr Q1H IV Last administered on 06/01/19at 16:18; Start 06/01/19 at 15:24; Stop 06/01/19 at 16:23; Status DC Ondansetron HCl (Zofran) 4 mg 1X ONCE IVP Last administered on 06/01/19at 16:19; Start 06/01/19 at 15:30; Stop 06/01/19 at 15:34; Status DC Piperacillin Sod/ Tazobactam Sod 3.375 gm/Sodium Chloride 50 ml @ 100 mls/hr Q6HRS IV Last administered on 06/03/19at 05:11; Start 06/02/19 at 00:00 Sodium Chloride (Normal Saline Flush) 3 ml QSHIFT PRN IV AFTER MEDS AND BLOOD DRAWS; Start 06/01/19 at 18:15 Sodium Chloride 1,000 ml @ 100 mls/hr Q10H IV Last administered on 06/03/19at 07:57; Start 06/01/19 at 19:00 Ondansetron HCl (Zofran) 4 mg PRN Q4HRS PRN IV NAUSEA/VOMITING; Start 06/01/19 at 18:15 Acetaminophen (Tylenol) 650 mg PRN Q4HRS PRN PO TEMP OVER 100.4F OR MILD PAIN; Start 06/01/19 at 18:15; Status UNV Al Hydroxide/Mg Hydroxide (Mylanta Plus Xs) 30 ml PRN DAILY PRN PO HEARTBURN / GAS; Start 06/01/19 at 18:15 Clonidine HCl (Catapres) 0.1 mg PRN Q6HRS PRN PO SBP>160 OR DBP>90; Start 06/01/19 at 18:15 Docusate Sodium (Colace) 100 mg PRN BID PRN PO CONSTIPATION; Start 06/01/19 at 18:15 Albuterol/ Ipratropium (Duoneb) 3 ml Q4H NEB Last administered on 06/01/19at 20:43; Start 06/01/19 at 18:00; Stop 06/02/19 at 23:43; Status DC Guaifenesin (Robitussin) 200 mg PRN Q4HRS PRN PO COUGH; Start 06/01/19 at 18:15 Lorazepam (Ativan) 0.5 mg PRN Q4HRS PRN PO ANXIETY / AGITATION Last administered on 06/03/19 05:12; Start 06/01/19 at 18:15 Enoxaparin Sodium (Lovenox 40mg Syringe) 40 mg DAILY SQ ; Start 06/02/19 at 09:00 Fentanyl Citrate (Fentanyl 2ml Vial) 50 mcg PRN Q1HR PRN IV PAIN Last administered on 06/02/19at 16:18; Start 06/01/19 at 18:45; Stop 06/02/19 at 18:44; Status DC Sodium Chloride 1,000 ml @ 1,000 mls/hr 1X ONCE IV Last administered on 06/01/19at 19:54; Start 06/01/19 at 19:30; Stop 06/01/19 at 20:29; Status DC Sodium Chloride 1,000 ml @ 125 mls/hr 1X ONCE IV Last administered on 06/01/19at 19:56; Start 06/01/19 at 19:30; Stop 06/02/19 at 03:29; Status DC Potassium Chloride (Klor-Con) 40 meq 1X ONCE PO Last administered on 06/01/19at 22:08; Start 06/01/19 at 19:30; Stop 06/01/19 at 19:31; Status DC Influenza Virus Vaccine Quadrival (Afluria Quad 2019-20 (3yr Up) Syringe) 0.5 ml ONCE ONCE VAX IM Last administered on 06/02/19at 17:08; Start 06/02/19 at 09:00; Stop 06/02/19 at 09:01; Status DC Levothyroxine Sodium (Synthroid) 100 mcg DAILY07 PO Last administered on 06/03/19at 05:12; Start 06/02/19 at 09:00 Acetaminophen/ Hydrocodone Bitart (Lortab 5/325) 1 tab PRN Q4HRS PRN PO PAIN; Start 06/02/19 at 09:00; Status UNV Tramadol HCl (Ultram) 50 mg PRN Q6HRS PRN PO PAIN Last administered on 06/03/19 05:12; Start 06/02/19 at 09:15 Lactobacillus Rhamnosus (Culturelle) 1 cap BID PO Last administered on 06/03/19at 07:56; Start 06/02/19 at 10:00 Potassium Chloride (Klor-Con) 20 meq 1X ONCE PO Last administered on 06/02/19at 12:35; Start 06/02/19 at 12:15; Stop 06/02/19 at 12:16; Status DC Albuterol Sulfate (Ventolin Neb Soln) 2.5 mg PRN Q4HRS PRN NEB WHEEZING; Start 06/02/19 at 23:45 Active Scripts Active Reported Levothyroxine Sodium 100 Mcg Tablet 1 Tab PO DAILY Vitals/I & O Vital Sign - Last 24 Hours 06/02/19 06/02/19 06/02/19 06/02/19 11:00 12:35 13:40 14:43 Temp 97.6 97.6 Pulse 70 Resp 16 18 16 16 B/P (MAP) 108/54 (72) Pulse Ox 70 O2 Delivery Room Air Room Air Room Air Room Air 06/02/19 06/02/19 06/02/19 06/02/19 15:00 15:47 16:18 16:53 Temp 97.9 97.9 Pulse 68 Resp 16 22 16 18 B/P (MAP) 105/51 (69) Pulse Ox 95 O2 Delivery Room Air Room Air Room Air Room Air 06/02/19 06/02/19 06/02/19 06/02/19 17:43 19:00 20:00 20:50 Temp 97.9 98.6 97.9 98.6 Pulse 68 78 Resp 16 16 18 B/P (MAP) 105/51 (69) 85/41 (56) Pulse Ox 95 96 95 O2 Delivery Room Air Room Air Room Air Room Air 06/02/19 06/02/19 06/03/19 06/03/19 21:50 23:00 03:00 05:12 Temp 97.9 98.2 97.9 98.2 Pulse 73 70 Resp 18 16 16 18 B/P (MAP) 109/56 (73) 98/45 (62) Pulse Ox 95 94 92 92 O2 Delivery Room Air Room Air Room Air Room Air 06/03/19 06/03/19 06/03/19 06:25 07:00 07:17 Temp 97.9 97.9 Pulse 85 Resp 18 16 B/P (MAP) 111/68 (82) Pulse Ox 92 92 O2 Delivery Room Air Room Air Room Air Intake and Output 06/02/19 06/02/19 06/03/19 15:00 23:00 07:00 Intake Total 500 ml 350 ml 1050 ml Output Total 800 ml Balance 500 ml 350 ml 250 ml ALIREZA FLETCHER MD Jun 03, 2019 09:23
[2019-06-03] MEDS: CELECOXIB 100 MG CAPSULE. PO SCH ×2 (10:32→21:53)
[2019-06-03 11:00] VITALS: BP 107/62
[2019-06-03 11:07] LABS: CALCIUM 8.3 mg/dL (8.5-10.1); CREATININE 1.7 mg/dL (0.7-1.3)
--- NOTE | 2019-06-03 13:36 | NUR ---
Patients dressing fell off the axilla area, narrative writer removed all dressing and patient refused to have new dressing applied, will continue to monitor.
[2019-06-03 15:00] VITALS: BP 106/68
--- NOTE | 2019-06-03 15:16 | NUR ---
Patient has new open areas to BLE due to scratching the affected area. Unable to measure all the open areas. Pictured and re-dressed BLE, patient refuses dressing to left axilla. Will continue to monitor. Addendum: 06/03/19 at 1539 by CHACHA VALERO RN Explosive Ordnance Disposal Specialist offered to contact physician for order for benadryl, patient refused, will continue to monitor.
[2019-06-03 19:00] VITALS: BP 111/64
[2019-06-03 23:00] VITALS: BP 89/45
[2019-06-04 02:55] VITALS: BP 116/47
[2019-06-04] MEDS: IV NORMAL SALINE 1000ML BAG 1,000 ML IV SCH ×2 (03:47→16:00)
[2019-06-04] MEDS: traMADol 50 MG TABLET PO PRN ×3 (05:14→20:56)
[2019-06-04] MEDS: PIPERACILLIN/TAZOBACTAM 3.375 GM in IV NORMAL SALINE 50ML 50 ML IV SCH ×3 (05:15→16:38)
[2019-06-04] MEDS: ENOXAPARIN 40 MG/0.4 ML SYRINGE. SQ SCH (07:05)
[2019-06-04 07:07] VITALS: BP 113/65
[2019-06-04] MEDS: LACTOBACILLUS RHAMNOSUS GG 1 CAPSULE. PO SCH ×2 (07:41→20:56)
[2019-06-04] MEDS: CELECOXIB 100 MG CAPSULE. PO SCH ×2 (07:41→20:56)
[2019-06-04] MEDS: LEVOTHYROXINE 100 MCG TABLET PO SCH (07:41)
[2019-06-04] MEDS ORDERED: TRAM50TA PO (08:50)
[2019-06-04] MEDS ORDERED: CELE100C PO (08:50)
[2019-06-04] MEDS ORDERED: CIPR500T94 PO (08:50)
[2019-06-04] MEDS ORDERED: DOXY100C2 PO (08:50)
--- NOTE | 2019-06-04 08:51 | SNU/HH DC ---
DISCHARGE WITH HOME HEALTH DISCHARGE INFORMATION: Discharge Date: Jun 04, 2019 Final Diagnosis: Problems Medical Problems: (1) KUSUM (acute kidney injury) Status: Acute (2) Bullous pemphigoid Status: Acute (3) Cellulitis of both lower extremities Status: Acute (4) HTN (hypertension) Status: Chronic (5) Renal insufficiency Status: Acute (6) SIRS (systemic inflammatory response syndrome) Status: Acute Condition on Discharge: Stable CODE STATUS: Code Status: Full HOME HEALTH: Face to Face: I certify this patient is under my care and that I, or a nurse practitioner or physician's home health assistant working with me, had a face to face encounter that meets the physician face to face encounter requirements with this patient on []. RN For Eval/Treatment: Yes Physical Therapy For: Evalulation/Treatment Occupational Therapy For: Evaluation/Treatment Speech Language Pathology For: Evaluation/Treatment Home Health Aide For: Self-care INCOMING INSPECTOR For: Community Resources Pt Meets Homebound Status: Unsteady balance w/ amb, POST DISCHARGE ORDERS: Activity Instructions for Disc: Activity as tolerated DIET AFTER DISCHARGE: Regular Wound/Incision Care: Keep wound/cast CDI CHECKS AFTER DISCHARGE: Checks after discharge: Check blood press - daily FOLLOW-UP: PCP to follow Home Health: ff up DR Cortez 2 weeks re rt arm fx; you need a middle school reading teacher TREATMENT/EQUIPMENT ORDERS: Adaptive Equipment Issued: None CERTIFICATION STATEMENT: Certification Statement: Certification Statement: Based on the above finding, I certify that this patient is confined to the home and needs intermittent senior care care, physical t herapy and/or speech therapy, or continues to need occupational therapy.~ This patient is under my care, and I have initiated the establishment of the plan of care.~ This patient will be followed by myself or a community physician who will periodically review the plan of care. Home Meds Active Scripts Doxycycline Hyclate (DOXYCYCLINE HYCLATE) 100 Mg Capsule, 1 CAP PO BID for bullosu pemphigoid, #14 CAP Prov:ALIREZA FLETCHER MD 06/04/19 Ciprofloxacin Hcl (CIPRO) 500 Mg Tablet, 1 TAB PO BID for bullous pemphigoid, #20 TAB Prov:ALIREZA FLETCHER MD 06/04/19 Tramadol Hcl (TRAMADOL HCL) 50 Mg Tablet, 50 MG PO PRN Q6HRS PRN for PAIN, #30 TAB Prov:ALIREZA FLETCHER MD 06/04/19 Celecoxib (CELEBREX) 100 Mg Capsule, 100 MG PO BID for pain, #30 CAP Prov:ALIREZA FLETCHER MD 06/04/19 Reported Medications Levothyroxine Sodium (LEVOTHYROXINE SODIUM) 100 Mcg Tablet, 1 TAB PO DAILY for hypothyroid, #30 TAB 5 Refills 07/14/18 ALIREZA FLETCHER MD Jun 04, 2019 08:51
[2019-06-04 11:00] VITALS: BP 115/65
--- NOTE | 2019-06-04 11:51 | PDOC3 ---
Discharge Summary Visit Information Date of Admission: Jun 01, 2019 Date of Discharge: Jun 04, 2019 Admitting Diagnosis Comment: Bullous pemphigoid - needs derma CKD Hypothyroidism Obesity BMI 30 Long toe nails RT forearm fracture - on track in healing Final Diagnosis Problems Medical Problems: (1) KUSUM (acute kidney injury) Status: Acute (2) Bullous pemphigoid Status: Acute (3) Cellulitis of both lower extremities Status: Acute (4) HTN (hypertension) Status: Chronic (5) Renal insufficiency Status: Acute (6) SIRS (systemic inflammatory response syndrome) Status: Acute Brief Hospital Course Allergies Allergies Coded Allergies Type Severity Reaction Last Updated Verified acetaminophen Allergy Intermediate 07/13/18 Yes morphine Allergy Intermediate 07/13/18 Yes shellfish derived Allergy Intermediate 07/13/18 Yes Vital Signs Vital Signs Date Time Temp Pulse Resp B/P (MAP) Pulse Ox O2 Delivery O2 Flow Rate FiO2 06/04/19 07:07 97.4 63 18 113/65 (81) 94 Room Air 97.4 Lab Results Laboratory Tests Test 06/02/19 23:10 06/03/19 09:45 Urine Collection Type Unknown Urine Color Yellow Urine Clarity Clear Urine pH 5.0 Urine Specific [place] >=1.030 Urine Protein Negative mg/dL (NEG-TRACE) Urine Glucose (UA) Negative mg/dL (NEG) Urine Ketones (Stick) Trace mg/dL (NEG) Urine Blood Negative (NEG) Urine Nitrite Negative (NEG) Urine Bilirubin Negative (NEG) Urine Urobilinogen Dipstick 0.2 mg/dL (0.2 mg/dL) Urine Leukocyte Esterase Small (NEG) Urine RBC 1-2 /HPF (0-2) Urine WBC 5-10 /HPF (0-4) Urine Squamous Epithelial Cells Few /LPF Urine Amorphous Sediment Present /HPF Urine Bacteria Moderate /HPF (0-FEW) Urine Hyaline Casts Few /HPF Urine Opiates Screen Neg (NEG) Urine Methadone Screen Neg (NEG) Urine Barbiturates Neg (NEG) Urine Phencyclidine Screen Neg (NEG) Urine Amphetamine/Methamphetamine Neg (NEG) Urine Benzodiazepines Screen Neg (NEG) Urine Cocaine Screen Neg (NEG) Urine Cannabinoids Screen Neg (NEG) Urine Ethyl Alcohol Neg (NEG) Sodium Level 143 mmol/L (136-145) Potassium Level 4.0 mmol/L (3.5-5.1) Chloride Level 109 mmol/L (98-107) Carbon Dioxide Level 25 mmol/L (21-32) Anion Gap 9 (6-14) Blood Urea Nitrogen 8 mg/dL (8-26) Creatinine 1.7 mg/dL (0.7-1.3) Estimated GFR (Cockcroft-Gault) 40.0 Glucose Level 84 mg/dL (70-99) Calcium Level 8.3 mg/dL (8.5-10.1) Brief Hospital Course Mr. Leonard is a 68 old who came in for a flare up of his bullous pemphigoid, HE has seen many diff dermatologists, all of which he is unsattisfied with, IN any case co managed with ID, was getting IV zosyn, but okayed by ID for po doxy and cipro as dw DR ARRIAGA on WEDNESDAY, HE also needed toenail clipping but can be done as OP by podiatry, HE had af fall 2 weeks ago and has a rt forearm fx that was never followed up on so we did check that and consulted ortho, and was on track in healing, recommended 2 week ff up HH today per pT recs PO dxy, cipro pain meds on chart Dw RN Pt seen and examined I EMPHASIZED TO HIM HE NEEDS A AUTO MACHINIST _ WHICH WE CANT PROVIDE HERE Discharge Information Condition at Discharge: Improved, Stable Disposition/Orders: D/C to Home w/ HH Scheduled Celecoxib (Celebrex) 100 Mg Capsule, 100 MG PO BID for pain, #30 Prescribed by: ALIREZA FLETCHER on 06/04/19 0850 Ciprofloxacin Hcl (Cipro) 500 Mg Tablet, 1 TAB PO BID for bullous pemphigoid, #20 Prescribed by: ALIREZA FLETCHER on 06/04/19 0850 Doxycycline Hyclate (Doxycycline Hyclate) 100 Mg Capsule, 1 CAP PO BID for bullosu pemphigoid, #14 Prescribed by: ALIREZA FLETHCER on 06/04/19 0850 Levothyroxine Sodium (Levothyroxine Sodium) 100 Mcg Tablet, 1 TAB PO DAILY for hypothyroid, #30 Ref 5 (Reported) Entered as Reported by: MENA COURTNEY on 07/14/18 0824 Last Taken: Unknown Dose on 06/01/19 Last Action: Continued on 06/02/19 0852 by ALIREZA FLETCHER Scheduled PRN Tramadol Hcl (Tramadol Hcl) 50 Mg Tablet, 50 MG PO PRN Q6HRS PRN for PAIN, #30 Prescribed by: ALIREZA FLETCHER on 06/04/19 0850 ALIREZA FLETCHER MD Jun 04, 2019 11:51
--- NOTE | 2019-06-04 12:02 | NUR ---
Patient has order from Dr. Kelly to discharge home with home health. Notified patient, he stated he does not have keys to his house and he does not know what home health agency he uses. Spoke to Cindy, sister in law, and she stated that Brent the brother in law is out of town and has the patients house keys with him. Cindy also stated that patient is not safe to stay at home by himself, that he has "ferral cats, cat poop everywhere, and has a hoarding situation". Notified Millicent, nursing fabrication supervisor and notified Dr. Kelly of situation, discharge cancelled for today. Will notify outreach and education social worker of situation.
[2019-06-04 15:00] VITALS: BP 115/67
[2019-06-04] MEDS ORDERED: MAG HYDROX/ALUMINUM HYD/SIMETH 30 ML ORAL.SUSP PO PRN (16:45)
[2019-06-04] MEDS ORDERED: FAMOTIDINE 20 MG TABLET. PO SCH (17:30)
[2019-06-04 19:00] VITALS: BP 112/57
[2019-06-04] MEDS: CIPROFLOXACIN HCL 250 MG TABLET. PO SCH (20:56)
[2019-06-04] MEDS: DOXYCYCLINE HYCLATE 100 MG TABLET PO SCH (20:56)
[2019-06-04 23:03] VITALS: BP 118/71
[2019-06-05] MEDS: IV NORMAL SALINE 1000ML BAG 1,000 ML IV SCH ×2 (03:00→13:00)
[2019-06-05 03:11] VITALS: BP 113/53
[2019-06-05] MEDS: LEVOTHYROXINE 100 MCG TABLET PO SCH (06:13)
[2019-06-05] MEDS: traMADol 50 MG TABLET PO PRN ×2 (06:13→17:47)
[2019-06-05 07:00] VITALS: BP 110/75
[2019-06-05] MEDS: ENOXAPARIN 40 MG/0.4 ML SYRINGE. SQ SCH (09:00)
[2019-06-05] MEDS: LACTOBACILLUS RHAMNOSUS GG 1 CAPSULE. PO SCH (09:01)
[2019-06-05] MEDS: DOXYCYCLINE HYCLATE 100 MG TABLET PO SCH (09:01)
[2019-06-05] MEDS: CIPROFLOXACIN HCL 250 MG TABLET. PO SCH (09:01)
[2019-06-05] MEDS: CELECOXIB 100 MG CAPSULE. PO SCH (09:01)
[2019-06-05 11:00] VITALS: BP 105/71
--- NOTE | 2019-06-05 11:30 | PDOC ---
[facility] PROGRESS NOTE Chief Complaint Chief Complaint Bullous pemphigoid CKD Hypothyroidism Obesity BMI 30 Long toe nails RT forearm fracture - on track in healing History of Present Illness History of Present Illness 06/05/19 Pt seen and examined Pt was in a good mood and ready to be discharged but we are having a hard time contacting his brother in law to set up home health. Consulted Dr. Mckenzie via phone for long toe nails. He said he will stop by this afternoon. BARNEY RN On IV zosyn The leg lesions look drier and pulverizer tender and has some post inflammatory hyperpigmentation BUt the left armpit is red and inflammed and skin ribbing on skin Dw ID - cipro and doxy on dc would be appropriate for bullous pemphigoid Dr liu (derm) is trying to retire RT forearm interval xray shows appropriate healing Ortho has advised CPM and interval xray 2 weeks and ff up OP 2 weeks ortho I tried sending him home today, but he is conerned he cant manage at home PT note yesterday said he refused to participate - they will try again LOng toenails too - podiatry consulted wednesday PLAN: KEep IV zosyn while in house PO cipro and doxy on dc SNUs creen after he participates with PTif that is recommended Podiatry consult for toe nail clipping ff up ortho 2 weeks with interval forearm xray Barney Lock Vitals/I&O Vitals/I&O: Vital Signs Date Time Temp Pulse Resp B/P (MAP) Pulse Ox O2 Delivery O2 Flow Rate FiO2 06/05/19 08:00 Room Air 06/05/19 07:00 97.9 61 18 110/75 (87) 96 97.9 I & O 06/04/19 06/04/19 06/05/19 15:00 23:00 07:00 Intake Total 1180 ml 1120 ml Balance 1180 ml 1120 ml Physical Exam General: Alert, Oriented X3, Cooperative, No acute distress Heart: Regular rate Abdomen: Normal bowel sounds, Soft, No tenderness Extremities: No clubbing, No cyanosis, No edema Skin: Other (BULLOUS PEMPHIGOID LESIONS IN UPPER AND LOWER EXTREMITIES) Review of Systems Review of Systems: Denies pain Denies n/v/d Assessment and Plan Assessmemt and Plan Problems Medical Problems: (1) KUSUM (acute kidney injury) Status: Acute (2) Bullous pemphigoid Status: Acute (3) Cellulitis of both lower extremities Status: Acute (4) HTN (hypertension) Status: Chronic (5) Renal insufficiency Status: Acute (6) SIRS (systemic inflammatory response syndrome) Status: Acute Assessment Bullous Pemphigoid Cellulitis b/l legs Htn Renal insufficiency KUSUM Plan Podiatry following IV antibiotics DVT prophylaxis Full code PT/OT Comment Review of Relevant I have reviewed the following items sal (where applicable) has been applied. Medications: Current Medications Medications (Trade) Dose Ordered Sig/Sharon Route PRN Reason Start Time Stop Time Status Last Admin Dose Admin Famotidine (Pepcid) 20 mg QHS PO 06/04/19 17:30 06/04/19 16:56 Doxycycline Hyclate (Vibra-Tab) 100 mg BID PO 06/04/19 21:00 06/05/19 09:01 Ciprofloxacin (Cipro) 500 mg BID PO 06/04/19 21:00 06/05/19 09:01 BRENDAN NICOLE III DO Jun 05, 2019 11:30
[2019-06-05 15:00] VITALS: BP 112/72
--- NOTE | 2019-06-05 15:55 | NUR ---
SS following for discharge up with discharge planning. Pt declined PT today. SS contacted pt's brother in law, , and discussed discharge. Pt's brother reported understanding and reported that he has keys to pt's home and would come to the hospital between 1800 and 1900 to transport pt. Discharge orders and referral phoned and faxed to [facility], ; fax [phone]. Pt's RN notified.
--- NOTE | 2019-06-05 18:07 | NUR ---
Pt. discharged to home with Rx, verbalized understanding of discharge instructions. Addendum: 06/05/19 at 1809 by ASMITA MORTON RN Arvin Cristina. Felipe arm splint CDI.
--- NOTE | 2019-06-05 19:29 | CONS ---
DATE OF CONSULTATION: INDICATIONS: This is a gentleman that was admitted with cellulitis of both lower extremities with a chronic history of similar problems. He is 68 years old. PAST MEDICAL HISTORY: Positive for hypertension, hypothyroidism, bullous pemphigoid, hypertension, acute renal failure, hypothyroidism. PAST SURGICAL HISTORY: None noted. SOCIAL HISTORY: Less than a pack of cigarettes a day. MEDICATIONS: Reviewed including IV antibiotics, levothyroxine, prednisone 50 mg and lisinopril 10 mg. ALLERGIES: ACETAMINOPHEN, TYLENOL, MORPHINE, AND SHELLFISH EXAMINATION: DERMAL: The patient has elongated mycotic nails that are tubular in fashion and elongated. The right great toenail has actually been torn off a little bit with some dried blood, but no signs of break in the skin or infection present. Decreased turgor, absence of hair growth and bullous pemphigoid condition of the skin, the feet and ankle is noted. VASCULAR: Pedal pulses are hard to palpate is essentially diminished to absent bilateral. Decreased temperature, absence of decreased temperature absence of hair growth. Increased capillary filling time. MUSCULOSKELETAL: Noncontributory. Negative for significant bunions or hammertoes that are problematic at this time. NEUROLOGIC: The patient appears to have very sensitive feet. Upon examination, so apparently no neuropathy is noted, may be more hyperreactive in nature. ASSESSMENT: 1. Clinical evidence of painful onychomycosis, onychocryptosis, onycholysis of all 10 toenails. No hemorrhage incurred. 2. Evidence with history of diminished vascularity with cellulitis, lower extremity edema is noted. PLAN: Debridement of all mycotic nails performed. No hemorrhage occurred. The patient was appreciated tolerated the procedure at bedside. Follow up on an as needed basis every 3 months would be recommended to the patient. CARI ESPINO DPM DR: KAT/julian JOB#: [id number] / [id number]
== END 2019-06-05 18:05 | disposition home health service (06) | DRG 595 ==
LOC: ER 13:58 → ED HOLD 18:10 → 4 NORTH 19:12
PROVIDERS: ADMIT Family Medicine; ATTEND Family Medicine
PROC: 0HBRXZZ Excision of Toe Nail, External Approach (ICD-10-PCS; principal; 2019-06-05)
PROC: 0HBRXZZ Excision of Toe Nail, External Approach (ICD-10-PCS; 2019-06-05)
PROC: 0HBRXZZ Excision of Toe Nail, External Approach (ICD-10-PCS; 2019-06-05)
PROC: 0HBRXZZ Excision of Toe Nail, External Approach (ICD-10-PCS; 2019-06-05)
PROC: 0HBRXZZ Excision of Toe Nail, External Approach (ICD-10-PCS; 2019-06-05)
PROC: 0HBRXZZ Excision of Toe Nail, External Approach (ICD-10-PCS; 2019-06-05)
PROC: 0HBRXZZ Excision of Toe Nail, External Approach (ICD-10-PCS; 2019-06-05)
PROC: 0HBRXZZ Excision of Toe Nail, External Approach (ICD-10-PCS; 2019-06-05)
PROC: 0HBRXZZ Excision of Toe Nail, External Approach (ICD-10-PCS; 2019-06-05)
PROC: 0HBRXZZ Excision of Toe Nail, External Approach (ICD-10-PCS; 2019-06-05)
DX: L12.0 Bullous pemphigoid (principal); E43 Unspecified severe protein-calorie malnutrition; N17.9 Acute kidney failure, unspecified; L03.116 Cellulitis of left lower limb; J98.11 Atelectasis; L03.115 Cellulitis of right lower limb; E03.9 Hypothyroidism, unspecified; F17.210 Nicotine dependence, cigarettes, uncomplicated; I95.1 Orthostatic hypotension; N18.3 Chronic kidney disease, stage 3 (moderate); E87.6 Hypokalemia; I12.9 Hypertensive chronic kidney disease with stage 1 through stage 4 chronic kidney disease, or unspecified chronic kidney disease; B35.1 Tinea unguium; L60.0 Ingrowing nail; L60.1 Onycholysis; E66.9 Obesity, unspecified; Z68.32 Body mass index [BMI] 32.0-32.9, adult; L81.0 Postinflammatory hyperpigmentation; S62.329A Displaced fracture of shaft of unspecified metacarpal bone, initial encounter for closed fracture; Y93.89 Activity, other specified; Y92.89 Other specified places as the place of occurrence of the external cause; Y99.8 Other external cause status; Z91.19 Patient's noncompliance with other medical treatment and regimen; Z88.8 Allergy status to other drugs, medicaments and biological substances; Z88.5 Allergy status to narcotic agent; Z91.013 Allergy to seafood; Z82.49 Family history of ischemic heart disease and other diseases of the circulatory system
CPT/HCPCS: 36415; 70450; 71045; 73090; 80048; 80053; 80307; 81001; 82553; 83605; 83690; 83735; 83880; 84443; 84484; 85025; 85610; 85730; 87040; 87086; 90471; 90686; 93005; 94640; 96361; 96365; 96375; 96376; J2405; J2543; J3010; J7030; J7620; 97110; 97112; 97116; 99285-25; G0378

== ENCOUNTER → 2019-11-13 | Outpatient (CLI) | payer MEDICARE ==
[~2019-11-13] MED LIST changes: +CELE100C PO; +CIPR500T94 PO; +DOXY100C2 PO; +TRAM50TA PO
[2019-11-13 11:14] LABS: BASO # 0.1 x10^3/uL (0.0-0.2); BASO % 1 % (0-3); EOS # 0.1 x10^3/uL (0.0-0.7); EOS % 1 % (0-3); HEMATOCRIT 45.9 % (39.0-53.0); HEMOGLOBIN 15.1 g/dL (13.0-17.5); LYMPH # 1.9 x10^3/uL (1.0-4.8); LYMPH % 13 % (24-48); MEAN CORPUSCULAR HEMOGLOBIN 29 pg (25-35); MEAN CORPUSCULAR HGB CONC 33 g/dL (31-37); MEAN CORPUSCULAR VOLUME 89 fL (79-100); MONO % 7 % (0-9); NEUT # 12.1 x10^3/uL (1.8-7.7); NEUT % 79 % (31-73); PLATELET COUNT 246 x10^3/uL (140-400); RED BLOOD COUNT 5.14 x10^6/uL (4.30-5.70); RED CELL DISTRIBUTION WIDTH 15.8 % (11.5-14.5); WHITE BLOOD COUNT 15.3 x10^3/uL (4.0-11.0)
[2019-11-13 11:35] LABS: ALBUMIN 2.5 g/dL (3.4-5.0); ALBUMIN/GLOBULIN RATIO 0.5 (1.0-1.7); CALCIUM 8.8 mg/dL (8.5-10.1); CREATININE 1.5 mg/dL (0.7-1.3); GFR 46.1; POTASSIUM 3.9 mmol/L (3.5-5.1); TOTAL BILIRUBIN 0.5 mg/dL (0.2-1.0); TOTAL PROTEIN 7.2 g/dL (6.4-8.2)
== END ==
LOC: LAB 10:27
PROVIDERS: ATTEND Preventive Medicine Undersea and Hyperbaric Medicine
DX: L12.0 Bullous pemphigoid (principal)
CPT/HCPCS: 36415; 80053; 85025

== ENCOUNTER 2020-03-12 10:27 | Emergency (ER) | payer MEDICARE ==
[~2020-03-12] VITALS: Ht 177.8 cm; Wt 105.0 kg
[2020-03-12 12:30] VITALS: BP 153/73
[2020-03-12 12:32] LABS: BASO # 0.1 x10^3/uL (0.0-0.2); BASO % 1 % (0-3); EOS # 0.2 x10^3/uL (0.0-0.7); EOS % 2 % (0-3); HEMATOCRIT 44.5 % (39.0-53.0); HEMOGLOBIN 14.9 g/dL (13.0-17.5); LYMPH # 2.8 x10^3/uL (1.0-4.8); LYMPH % 26 % (24-48); MEAN CORPUSCULAR HEMOGLOBIN 28 pg (25-35); MEAN CORPUSCULAR HGB CONC 33 g/dL (31-37); MEAN CORPUSCULAR VOLUME 85 fL (79-100); MONO # 1.2 x10^3/uL (0.0-1.1); MONO % 11 % (0-9); NEUT # 6.4 x10^3/uL (1.8-7.7); NEUT % 60 % (31-73); PLATELET COUNT 239 x10^3/uL (140-400); RED BLOOD COUNT 5.26 x10^6/uL (4.30-5.70); RED CELL DISTRIBUTION WIDTH 16.2 % (11.5-14.5); WHITE BLOOD COUNT 10.6 x10^3/uL (4.0-11.0)
[2020-03-12 12:37] LABS: CALCIUM 8.5 mg/dL (8.5-10.1); CREATININE 1.4 mg/dL (0.7-1.3); POTASSIUM 3.6 mmol/L (3.5-5.1)
[2020-03-12 12:42] LABS: ALBUMIN 2.3 g/dL (3.4-5.0); ALBUMIN/GLOBULIN RATIO 0.5 (1.0-1.7); TOTAL BILIRUBIN 0.4 mg/dL (0.2-1.0); TOTAL PROTEIN 6.6 g/dL (6.4-8.2)
--- NOTE | 2020-03-12 12:54 | PHYS DOC ---
Past Medical History Past Medical History: Hypertension, Hypothyroid, Other Additional Past Medical Histor: bullous pemphigoid, patient poor historian Past Surgical History: No Surgical History Additional Past Surgical Histo: PATIENT POOR HISTORIAN Smoking Status: Former Smoker Alcohol Use: None Drug Use: None General Adult EDM: Chief Complaint: FEVER HPI: HPI: Patient is a 69-year-old male with a history of bullous pemphigus in his lower extremities that he been suffering for 11 years, was found to have a fever of 101 degrees at home yesterday by his home health nurse who comes to check on him and change the wound dressing 3 times a week. Patient was advised by his doctor today to come to ER for evaluation. Patient denies any fever, no headache, no cough, no abdominal pain, no nausea vomiting today. Patient said he felt just fine, did not really want to come in to ER but because of his doctor advised him to come. Patient vital signs was normal in the ER, he did not have any fever in the ER. Patient did not take any Tylenol Motrin at home before come to ER.. Because patient had open wounds on his lower extremities due to chronic bullous pemphigus, we decided to culture his blood to make sure he does not have bacteremia. Review of Systems: Review of Systems: Constitutional: Denies fever or chills. [] Eyes: Denies change in visual acuity. [] HENT: Denies nasal congestion or sore throat. [] Respiratory: Denies cough or shortness of breath. [] Cardiovascular: Denies chest pain or edema. [] GI: Denies abdominal pain, nausea, vomiting, bloody stools or diarrhea. [] : Denies dysuria. [] Musculoskeletal: Denies back pain or joint pain. [] Integument: Denies rash. [] Neurologic: Denies headache, focal weakness or sensory changes. [] Endocrine: Denies polyuria or polydipsia. [] Lymphatic: Denies swollen glands. [] Psychiatric: Denies depression or anxiety. [] Heart Score: Risk Factors: Risk Factors: DM, Current or recent (<one month) smoker, HTN, HLP, family history of CAD, obesity. Risk Scores: Score 0 - 3: 2.5% MACE over next 6 weeks - Discharge Home Score 4 - 6: 20.3% MACE over next 6 weeks - Admit for Clinical Observation Score 7 - 10: 72.7% MACE over next 6 weeks - Early Invasive Strategies Allergies: Allergies: Allergies Coded Allergies Type Severity Reaction Last Updated Verified acetaminophen Allergy Intermediate 07/13/18 Yes morphine Allergy Intermediate 07/13/18 Yes shellfish derived Allergy Intermediate 07/13/18 Yes Physical Exam: PE: Constitutional: Well developed, well nourished, no acute distress, non-toxic appearance. [] HENT: Normocephalic, atraumatic, bilateral external ears normal, oropharynx moist, no oral exudates, nose normal. [] Eyes: PERRLA, EOMI, conjunctiva normal, no discharge. [] Neck: Normal range of motion, no tenderness, supple, no stridor. [] Cardiovascular:Heart rate regular rhythm, no murmur [] Lungs & Thorax: Bilateral breath sounds clear to auscultation [] Abdomen: Bowel sounds normal, soft, no tenderness, no masses, no pulsatile masses. [] Skin: Warm, dry, no erythema, no rash. [] Back: No tenderness, no CVA tenderness. [] Extremities: Bilateral lower extremity with weeping wound with clear drainage consistent with chronic bullous pemphigus, these extremities were dressed with gauze. Neurologic: Alert and oriented X 3, normal motor function, normal sensory function, no focal deficits noted. [] Psychologic: Affect normal, judgement normal, mood normal. [] Current Patient Data: Labs: Laboratory Tests Test 03/12/20 12:20 White Blood Count 10.6 x10^3/uL (4.0-11.0) Red Blood Count 5.26 x10^6/uL (4.30-5.70) Hemoglobin 14.9 g/dL (13.0-17.5) Hematocrit 44.5 % (39.0-53.0) Mean Corpuscular Volume 85 fL (79-100) Mean Corpuscular Hemoglobin 28 pg (25-35) Mean Corpuscular Hemoglobin Concent 33 g/dL (31-37) Red Cell Distribution Width 16.2 % (11.5-14.5) H Platelet Count 239 x10^3/uL (140-400) Neutrophils (%) (Auto) 60 % (31-73) Lymphocytes (%) (Auto) 26 % (24-48) Monocytes (%) (Auto) 11 % (0-9) H Eosinophils (%) (Auto) 2 % (0-3) Basophils (%) (Auto) 1 % (0-3) Neutrophils # (Auto) 6.4 x10^3/uL (1.8-7.7) Lymphocytes # (Auto) 2.8 x10^3/uL (1.0-4.8) Monocytes # (Auto) 1.2 x10^3/uL (0.0-1.1) H Eosinophils # (Auto) 0.2 x10^3/uL (0.0-0.7) Basophils # (Auto) 0.1 x10^3/uL (0.0-0.2) Sodium Level 142 mmol/L (136-145) Potassium Level 3.6 mmol/L (3.5-5.1) Chloride Level 107 mmol/L (98-107) Carbon Dioxide Level 31 mmol/L (21-32) Anion Gap 4 (6-14) L Blood Urea Nitrogen 15 mg/dL (8-26) Creatinine 1.4 mg/dL (0.7-1.3) H Estimated GFR (Cockcroft-Gault) 50.0 BUN/Creatinine Ratio 11 (6-20) Glucose Level 87 mg/dL (70-99) Calcium Level 8.5 mg/dL (8.5-10.1) Total Bilirubin 0.4 mg/dL (0.2-1.0) Aspartate Amino Transferase (AST) 19 U/L (15-37) Alanine Aminotransferase (ALT) 25 U/L (16-63) Alkaline Phosphatase 65 U/L (46-116) Total Protein 6.6 g/dL (6.4-8.2) Albumin 2.3 g/dL (3.4-5.0) L Albumin/Globulin Ratio 0.5 (1.0-1.7) L Laboratory Tests 03/12/20 12:20 Laboratory Tests 03/12/20 12:20 Vital Signs: Vital Signs Date Time Temp Pulse Resp B/P (MAP) Pulse Ox O2 Delivery O2 Flow Rate FiO2 03/12/20 10:27 97.7 81 16 188/90 (122) 99 Room Air 97.7 EKG: EKG: [] Radiology/Procedures: Radiology/Procedures: [] Course & Med Decision Making: Course & Med Decision Making Pertinent Labs and Imaging studies reviewed. (See chart for details) Patient is a 69-year-old male with a history of bullous pemphigus in his lower extremities that he been suffering for 11 years, was found to have a fever of 101 degrees at home yesterday by his home health nurse. Patient was advised by his doctor today to come to ER for evaluation. Patient denies any fever, no headache, no cough, no abdominal pain, no nausea vomiting today. Patient said he felt just fine, did not really want to come in to ER but because of his doctor advised him to come. Patient vital signs was normal in the ER, he did not have any fever in the ER. Patient did not take any Tylenol Motrin at home before come to ER.. Because patient had open wounds on his lower extremities due to chronic bullous pemphigus, we decided to culture his blood to make sure he does not have bacteremia. His lab work come back normal, culture his blood is pending at this time, patient is not in any acute distress. Patient was discharged home. We will contact him if his blood culture come back positive for anything. Cris Disclaimer: Cris Disclaimer: This electronic medical record was generated, in whole or in part, using a voice recognition dictation system. Departure Departure Impression: Primary Impression: Encounter for medical screening examination Disposition: 01 HOME, SELF-CARE Condition: STABLE Referrals: LUCIO MÉNDEZ MD (PCP) PLEASE FOLLOW UP WITH YOUR DOCT OR FOR EVALUATION NEEDED Patient Instructions: Medical Screening Exam Justicifation of Admission Dx: Justifications for Admission: Justification of Admission Dx: N/A ANDREW MARTINEZ DO Mar 12, 2020 12:54
== END 2020-03-12 13:29 | disposition home or self-care (01) ==
LOC: ER 10:27
DX: R50.9 Fever, unspecified (principal); I10 Essential (primary) hypertension; E03.9 Hypothyroidism, unspecified; Z98.890 Other specified postprocedural states; Z87.891 Personal history of nicotine dependence; Z91.013 Allergy to seafood; Z88.6 Allergy status to analgesic agent; Z88.8 Allergy status to other drugs, medicaments and biological substances
CPT/HCPCS: 36415; 80053; 85025; 87040; 99284

== ENCOUNTER 2020-05-21 16:10 | Inpatient (IN) | payer MEDICARE, OTHER ==
[~2020-05-21] VITALS: Ht 180.3 cm; Wt 88.8 kg
--- NOTE | 2020-05-21 16:23 | PHYS DOC ---
Past Medical History Past Medical History: Hypertension, Hypothyroid, Other Additional Past Medical Histor: bullous pemphigoid, patient poor historian Past Surgical History: No Surgical History Additional Past Surgical Histo: PATIENT POOR HISTORIAN Smoking Status: Former Smoker Alcohol Use: None Drug Use: None General Adult EDM: Chief Complaint: Generalized weakness HPI: HPI: Patient is a 69 year old who arrives via EMS from assisted living with a chief complaint of generalized weakness. Patient's primary care doctor called because he was feeling generally weak. Patient has not had good p.o. intake over the last several weeks. Patient has bullous pemphigoid and denies any complaint other than the pain related to that skin condition. Patient denies any fevers chills cough vomiting diarrhea blood in the stools. Patient denies any symptoms deep chest pain or abdominal pain. Symptoms are worse with activity and better at rest. Review of Systems: Review of Systems: Constitutional: Denies fever or chills. [] Eyes: Denies change in visual acuity. [] HENT: Denies nasal congestion or sore throat. [] Respiratory: Denies cough or shortness of breath. [] Cardiovascular: Denies chest pain or edema. [] GI: Denies abdominal pain, nausea, vomiting, bloody stools or diarrhea. [] : Denies dysuria. [] Musculoskeletal: Denies back pain or joint pain. [] Integument: Complains of rash Neurologic: Denies headache, focal weakness or sensory changes. [] Endocrine: Denies polyuria or polydipsia. [] Lymphatic: Denies swollen glands. [] Psychiatric: Denies depression or anxiety. [] Heart Score: Risk Factors: Risk Factors: DM, Current or recent (<one month) smoker, HTN, HLP, family his tory of CAD, obesity. Risk Scores: Score 0 - 3: 2.5% MACE over next 6 weeks - Discharge Home Score 4 - 6: 20.3% MACE over next 6 weeks - Admit for Clinical Observation Score 7 - 10: 72.7% MACE over next 6 weeks - Early Invasive Strategies Allergies: Allergies: Allergies Coded Allergies Type Severity Reaction Last Updated Verified acetaminophen Allergy Intermediate 07/13/18 Yes morphine Allergy Intermediate 07/13/18 Yes shellfish derived Allergy Intermediate 07/13/18 Yes Physical Exam: PE: Constitutional: Well developed, well nourished, no acute distress, non-toxic appearance. [] HENT: Normocephalic, atraumatic, bilateral external ears normal, no trismus, nose normal. [] Eyes: PERRLA, EOMI, conjunctiva normal, no discharge. [] Neck: Normal range of motion, no tenderness, supple, no stridor. [] Cardiovascular:Heart rate regular rhythm, peripheral pulses intact, cap refill brisk Lungs & Thorax: Bilateral breath sounds clear, no respiratory distress Abdomen: Bowel sounds normal, soft, no tenderness, no masses, no pulsatile masses. [] Skin: Diffuse rash consistent with bullous pemphigoid, mild amount of drainage from lower extremity wounds Back: No tenderness, no CVA tenderness. [] Extremities: 2+ bilateral extremity edema Neurologic: Alert and oriented X 3, normal motor function, normal sensory function, no focal deficits noted. [] Psychologic: Affect normal, judgement normal, mood normal. [] Current Patient Data: Labs: Current Medications Medications (Trade) Dose Ordered Sig/Sharon Route PRN Reason Start Time Stop Time Status Last Admin Dose Admin Sodium Chloride 1,000 ml @ 1,000 mls/hr 1X ONCE IV 05/21/20 16:30 05/21/20 17:29 DC EKG: EKG: [] Radiology/Procedures: Radiology/Procedures: [][facility] [address] [place] [address] IMAGING REPORT Signed PATIENT: ANA MARIA JOY ACCOUNT: [id number] : 1950 LOCATION: ER AGE: 69 SEX: M EXAM STATUS: REG ER ORD. PHYSICIAN: SELENE YUAN MD REASON: TSH PROCEDURE: PORTABLE CHEST 1V PORTABLE CHEST 1V History: Reason: TSH / Spl. Instructions: / History: Comparison: June 01, 2019 Findings: Linear bibasilar opacities, unchanged. No pleural effusion. No pneumothorax. Normal heart size. Left hilar calcified lymph nodes and calcified left midlung pulmonary nodule, likely prior granulous disease. Sclerotic lesion within the scapula, unchanged. Impression: 1. Mild bibasilar linear atelectasis. 2. Left scapula sclerotic lesion, unchanged. If persistent clinical concern, bone scan can better evaluate depending on clinical history. Electronically signed by: Joseph Natarajan DO (05/21/2020 5:16 PM) [facility] DICTATED and SIGNED BY: JOSEPH NATARAJAN DO DATE: 05/21/20 1716 Course & Med Decision Making: Course & Med Decision Making Pertinent Labs and Imaging studies reviewed. (See chart for details) [] 69-year-old male presents with generalized weakness. Patient is at an assisted living facility and is unable to stay there. Patient will be admitted to Dr. Zaragoza. Labs are pending at the time of disposition. Dragon Disclaimer: Dragon Disclaimer: This electronic medical record was generated, in whole or in part, using a voice recognition dictation system. Departure Departure Impression: Primary Impression: Generalized weakness Disposition: ADMITTED INPATIENT Admitting Physician: CHAN EUBANKS) Condition: STABLE Referrals: LUCIO MÉNDEZ MD (PCP) Justicifation of Admission Dx: Justifications for Admission: Justification of Admission Dx: Yes (UNABLE TO CARE FOR SELF) SELENE YUAN MD May 21, 2020 16:23
[2020-05-21] MEDS ORDERED: IV NORMAL SALINE 1000ML BAG 1,000 ML IV ONE (16:30)
--- NOTE | 2020-05-21 17:19 | RAD ---
PORTABLE CHEST 1V History: Reason: TSH / Spl. Instructions: / History: Comparison: June 01, 2019 Findings: Linear bibasilar opacities, unchanged. No pleural effusion. No pneumothorax. Normal heart size. Left hilar calcified lymph nodes and calcified left midlung pulmonary nodule, likely prior granulous disease. Sclerotic lesion within the scapula, unchanged. Impression: 1. Mild bibasilar linear atelectasis. 2. Left scapula sclerotic lesion, unchanged. If persistent clinical concern, bone scan can better evaluate depending on clinical history. Electronically signed by: Joseph Natarajan DO (05/21/2020 5:16 PM) [facility]
[2020-05-21] MEDS ORDERED: ONDANSETRON PF 4 MG/2 ML VIAL. IV PRN (18:15)
[2020-05-21] MEDS ORDERED: PIP/TAZO PER PHARMACY MC PRN (19:45)
[2020-05-21] MEDS: PIPERACILLIN/TAZOBACTAM 3.375 GM in IV NORMAL SALINE 50ML 50 ML IV SCH (19:59)
[2020-05-21 20:16] LABS: PROTHROMBIN TIME PATIENT 14.3 SEC (11.7-14.0)
[2020-05-21 20:18] LABS: CALCIUM 7.6 mg/dL (8.5-10.1); CREATININE 1.6 mg/dL (0.7-1.3); GFR 42.8; POTASSIUM 3.8 mmol/L (3.5-5.1)
[2020-05-21 20:24] LABS: ALBUMIN 1.4 g/dL (3.4-5.0); ALBUMIN/GLOBULIN RATIO 0.4 (1.0-1.7); TOTAL BILIRUBIN 0.2 mg/dL (0.2-1.0)
--- NOTE | 2020-05-21 20:31 | HP ---
ADMIT DATE: 05/21/2020 CHIEF COMPLAINT: Weakness. HISTORY OF PRESENT ILLNESS: The patient is a pleasant elderly male who presented with weakness. He has bullous pemphigoid. He has been suffering from severe bullous pemphigoid for about 11 years. He has numerous blisters all over his body. His skin is peeling. He has some malodorous lesions. He has been living in assisted care. I suspect he is not eating or drinking and has not been able to take care of himself. I discussed the case with ER physician. We are going to admit the patient, do some wound care and get him long-term care placement if possible. PAST MEDICAL HISTORY: 1. Bullous pemphigoid. 2. Hypertension. 3. Hypothyroidism. 4. Memory issues. 5. Previous tobacco abuse. ALLERGIES: TYLENOL, MORPHINE, and SHELLFISH. FAMILY HISTORY: Diabetes. SOCIAL HISTORY: He lives in assisted care, but he is not doing well. He used to smoke. No drink or drugs. He is retired. MEDICATIONS: Reviewed. Please refer to the MRAD. REVIEW OF SYSTEMS: Unable to obtain. The patient is a poor historian. PHYSICAL EXAMINATION: PHYSICAL EXAMINATION: VITALS: Within normal limits and are stable. GENERAL: He is confused. HEENT: Normal cephalic atraumatic, external auditory canals are patent EYES: Extraocular muscles are intact, pupils are equally round and reactive to light and accommodation MUSCULOSKELETAL: Well developed, well nourished, good range of motion ENDOCRINE: No thyromegaly was palpated LYMPHATICS: No cervical chain or axillary nodes were noted HEMATOPOIETIC: No bruising NECK: Supple, no JVD, no thyromegaly was noted. LUNGS: Clear to auscultation in all lung mejía without rhonchi or wheezing. HEART: RRR, S1, S2 present. Peripheral pulses intact, no obvious murmurs were noted. ABDOMEN: Soft, nontender. Positive bowel sounds no organomegaly, normal bowel sounds. EXTREMITIES: Without any cyanosis, clubbing, or edema. Pedal pulses intact, Homans sign is negative. NEUROLOGIC: He is pleasantly confused. PSYCHIATRIC: He is depressed. SKIN: He has numerous bullous pemphigoid lesions. Please see the pictures. VASCULAR: Good capillary refill, neurovascular bundle appears to be intact. ASSESSMENT: 1. Progression of bullous pemphigoid with severe skin lesions. Probable infections with impending sepsis. 2. Hypotension and adult failure to thrive. I suspect he is not eating or drinking at home. PLAN: The patient will be admitted. We will consult certified social workers in health care. Consult the wound care team. IV antibiotics. Home meds. DVT prophylaxis. Full Code. PROGNOSIS: Guarded. BRENDAN NICOLE DO DR: MYLES/julian JOB#: [id number] / [id number]
[2020-05-21 21:53] LABS: BASO # 0.1 x10^3/uL (0.0-0.2); BASO % 1 % (0-3); EOS # 0.4 x10^3/uL (0.0-0.7); EOS % 4 % (0-3); HEMATOCRIT 38.4 % (39.0-53.0); HEMOGLOBIN 12.5 g/dL (13.0-17.5); LYMPH # 1.7 x10^3/uL (1.0-4.8); LYMPH % 15 % (24-48); MEAN CORPUSCULAR HEMOGLOBIN 27 pg (25-35); MEAN CORPUSCULAR HGB CONC 33 g/dL (31-37); MEAN CORPUSCULAR VOLUME 82 fL (79-100); MONO # 1.3 x10^3/uL (0.0-1.1); MONO % 11 % (0-9); NEUT # 8.3 x10^3/uL (1.8-7.7); NEUT % 70 % (31-73); PLATELET COUNT 322 x10^3/uL (140-400); RED BLOOD COUNT 4.67 x10^6/uL (4.30-5.70); RED CELL DISTRIBUTION WIDTH 15.4 % (11.5-14.5); WHITE BLOOD COUNT 11.8 x10^3/uL (4.0-11.0)
[2020-05-21] MEDS ORDERED: IV NORMAL SALINE 1000ML BAG 1,000 ML IV SCH (22:45)
[2020-05-21 22:50] VITALS: BP 97/56
[2020-05-21] MEDS ORDERED: HYDR25TA PO (23:21)
[2020-05-21] MEDS ORDERED: PANT40TA77 PO (23:22)
[2020-05-21] MEDS ORDERED: LEVO88TA4 PO (23:23)
--- NOTE | 2020-05-21 23:30 | NUR ---
Admit to [facility] room 260 from ED via gurney. Alert on arrival. Admit Dx generalized weakness. Patient has history of Bullous Pemphigoid and has generalized weeping blisters on his body making ADLs very difficult for him. C/O pain and itching with blisters. Orientated to room and call light. Reviewed POC to include wound care consult. Verbalized understanding. Reviewed home medications as patient brought medication bottles with him.
[2020-05-22] MEDS: traMADol 50 MG TABLET PO PRN ×3 (00:58→15:30)
[2020-05-22] MEDS: hydrOXYzine 25 MG TABLET PO PRN ×2 (00:58→08:23)
--- NOTE | 2020-05-22 02:38 | NUR ---
Changed dressing to moon Gallardo. Washed wounds with saline wash, applied Xeroform gauze, placed abd pads, wrapped with Kerlix roll gauze and secured with tape. Placed wound care consult.
--- NOTE | 2020-05-22 03:04 | NUR ---
When asking patient his code status and what he would like done if he should stop breathing and his heart should stop beating he replied "well I do want to live".
[2020-05-22 03:29] VITALS: BP 96/46
[2020-05-22 05:05] LABS: BASO # 0.1 x10^3/uL (0.0-0.2); BASO % 1 % (0-3); EOS # 0.6 x10^3/uL (0.0-0.7); EOS % 5 % (0-3); HEMATOCRIT 37.5 % (39.0-53.0); LYMPH # 2.2 x10^3/uL (1.0-4.8); LYMPH % 19 % (24-48); MEAN CORPUSCULAR HEMOGLOBIN 26 pg (25-35); MEAN CORPUSCULAR HGB CONC 32 g/dL (31-37); MEAN CORPUSCULAR VOLUME 82 fL (79-100); MONO # 1.4 x10^3/uL (0.0-1.1); MONO % 12 % (0-9); NEUT # 7.3 x10^3/uL (1.8-7.7); NEUT % 63 % (31-73); PLATELET COUNT 316 x10^3/uL (140-400); RED BLOOD COUNT 4.56 x10^6/uL (4.30-5.70); WHITE BLOOD COUNT 11.6 x10^3/uL (4.0-11.0)
[2020-05-22] MEDS: PIPERACILLIN/TAZOBACTAM 3.375 GM in IV NORMAL SALINE 50ML 50 ML IV SCH (05:07)
[2020-05-22 05:51] LABS: CALCIUM 7.5 mg/dL (8.5-10.1); CREATININE 1.5 mg/dL (0.7-1.3); GFR 46.1; POTASSIUM 3.6 mmol/L (3.5-5.1)
[2020-05-22] MEDS: LEVOTHYROXINE 88 MCG TABLET PO SCH (06:07)
[2020-05-22 07:00] VITALS: BP 109/65
--- NOTE | 2020-05-22 08:10 | PDOC ---
Infectious Disease Note Vital Sign Vital Signs Vital Signs Date Time Temp Pulse Resp B/P (MAP) Pulse Ox O2 Delivery O2 Flow Rate FiO2 05/22/20 03:29 98.1 71 18 96/46 (63) 96 Room Air 98.1 Labs Lab Laboratory Tests Test 05/21/20 19:56 05/21/20 21:46 05/21/20 23:15 05/22/20 04:25 Prothrombin Time 14.3 SEC (11.7-14.0) Prothromb Time International Ratio 1.2 (0.8-1.1) Activated Partial Thromboplast Time 30 SEC (24-38) Sodium Level 136 mmol/L (136-145) 133 mmol/L (136-145) Potassium Level 3.8 mmol/L (3.5-5.1) 3.6 mmol/L (3.5-5.1) Chloride Level 100 mmol/L (98-107) 102 mmol/L (98-107) Carbon Dioxide Level 25 mmol/L (21-32) 24 mmol/L (21-32) Anion Gap 11 (6-14) 7 (6-14) Blood Urea Nitrogen 13 mg/dL (8-26) 14 mg/dL (8-26) Creatinine 1.6 mg/dL (0.7-1.3) 1.5 mg/dL (0.7-1.3) Estimated GFR (Cockcroft-Gault) 42.8 46.1 BUN/Creatinine Ratio 8 (6-20) Glucose Level 78 mg/dL (70-99) 97 mg/dL (70-99) Lactic Acid Level 3.2 mmol/L (0.4-2.0) 1.8 mmol/L (0.4-2.0) Calcium Level 7.6 mg/dL (8.5-10.1) 7.5 mg/dL (8.5-10.1) Total Bilirubin 0.2 mg/dL (0.2-1.0) Aspartate Amino Transf (AST/SGOT) 22 U/L (15-37) Alanine Aminotransferase (ALT/SGPT) 9 U/L (16-63) Alkaline Phosphatase 61 U/L (46-116) Troponin I Quantitative < 0.017 ng/mL (0.000-0.055) Total Protein 5.0 g/dL (6.4-8.2) Albumin 1.4 g/dL (3.4-5.0) Albumin/Globulin Ratio 0.4 (1.0-1.7) Lipase 59 U/L (73-393) White Blood Count 11.8 x10^3/uL (4.0-11.0) 11.6 x10^3/uL (4.0-11.0) Red Blood Count 4.67 x10^6/uL (4.30-5.70) 4.56 x10^6/uL (4.30-5.70) Hemoglobin 12.5 g/dL (13.0-17.5) 12.0 g/dL (13.0-17.5) Hematocrit 38.4 % (39.0-53.0) 37.5 % (39.0-53.0) Mean Corpuscular Volume 82 fL (79-100) 82 fL (79-100) Mean Corpuscular Hemoglobin 27 pg (25-35) 26 pg (25-35) Mean Corpuscular Hemoglobin Concent 33 g/dL (31-37) 32 g/dL (31-37) Red Cell Distribution Width 15.4 % (11.5-14.5) 15.0 % (11.5-14.5) Platelet Count 322 x10^3/uL (140-400) 316 x10^3/uL (140-400) Neutrophils (%) (Auto) 70 % (31-73) 63 % (31-73) Lymphocytes (%) (Auto) 15 % (24-48) 19 % (24-48) Monocytes (%) (Auto) 11 % (0-9) 12 % (0-9) Eosinophils (%) (Auto) 4 % (0-3) 5 % (0-3) Basophils (%) (Auto) 1 % (0-3) 1 % (0-3) Neutrophils # (Auto) 8.3 x10^3/uL (1.8-7.7) 7.3 x10^3/uL (1.8-7.7) Lymphocytes # (Auto) 1.7 x10^3/uL (1.0-4.8) 2.2 x10^3/uL (1.0-4.8) Monocytes # (Auto) 1.3 x10^3/uL (0.0-1.1) 1.4 x10^3/uL (0.0-1.1) Eosinophils # (Auto) 0.4 x10^3/uL (0.0-0.7) 0.6 x10^3/uL (0.0-0.7) Basophils # (Auto) 0.1 x10^3/uL (0.0-0.2) 0.1 x10^3/uL (0.0-0.2) Objective Assessment pt seen, consult dictated Plan Plan of Care / CIPRIANO ARRIAGA MD May 22, 2020 08:10
[2020-05-22] MEDS: PANTOPRAZOLE 40 MG TABLET.DR. PO SCH (08:11)
--- NOTE | 2020-05-22 08:16 | PDOC ---
[employer] PROGRESS NOTE Date of Service DOS: DATE: 05/22/20 TIME: 08:08 Chief Complaint Chief Complaint A/P: Weakness Bullous pemphigoid. Hypertension. Hypothyroidism. Memory issues. Previous tobacco abuse. 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 He has been suffering from severe bullous pemphigoid for about 11 years. He has numerous blisters all over his body. His skin is peeling. He has some malodorous lesions. He has been living in assisted care. He is not eating or drinking and has not been able to take care of himself. Sodium 133. He is still very weak. Most of his lesions are foul-smelling. Afebrile. Vitals/I&O Vitals/I&O: Vital Signs Date Time Temp Pulse Resp B/P (MAP) Pulse Ox O2 Delivery O2 Flow Rate FiO2 05/22/20 03:29 98.1 71 18 96/46 (63) 96 Room Air 98.1 I & O 05/21/20 05/21/20 05/22/20 15:00 23:00 07:00 Intake Total 1000 ml 50 ml Output Total 0 ml Balance 1000 ml 50 ml Physical Exam General: Alert Heart: Regular rate Lungs: Clear Abdomen: Normal bowel sounds Skin: Other (diffuse bullous pemphigoid lesions) Labs Labs: Laboratory Tests Test 05/21/20 19:56 05/21/20 21:46 05/21/20 23:15 05/22/20 04:25 Prothrombin Time 14.3 SEC (11.7-14.0) Prothromb Time International Ratio 1.2 (0.8-1.1) Activated Partial Thromboplast Time 30 SEC (24-38) Sodium Level 136 mmol/L (136-145) 133 mmol/L (136-145) Potassium Level 3.8 mmol/L (3.5-5.1) 3.6 mmol/L (3.5-5.1) Chloride Level 100 mmol/L (98-107) 102 mmol/L (98-107) Carbon Dioxide Level 25 mmol/L (21-32) 24 mmol/L (21-32) Anion Gap 11 (6-14) 7 (6-14) Blood Urea Nitrogen 13 mg/dL (8-26) 14 mg/dL (8-26) Creatinine 1.6 mg/dL (0.7-1.3) 1.5 mg/dL (0.7-1.3) Estimated GFR (Cockcroft-Gault) 42.8 46.1 BUN/Creatinine Ratio 8 (6-20) Glucose Level 78 mg/dL (70-99) 97 mg/dL (70-99) Lactic Acid Level 3.2 mmol/L (0.4-2.0) 1.8 mmol/L (0.4-2.0) Calcium Level 7.6 mg/dL (8.5-10.1) 7.5 mg/dL (8.5-10.1) Total Bilirubin 0.2 mg/dL (0.2-1.0) Aspartate Amino Transf (AST/SGOT) 22 U/L (15-37) Alanine Aminotransferase (ALT/SGPT) 9 U/L (16-63) Alkaline Phosphatase 61 U/L (46-116) Troponin I Quantitative < 0.017 ng/mL (0.000-0.055) Total Protein 5.0 g/dL (6.4-8.2) Albumin 1.4 g/dL (3.4-5.0) Albumin/Globulin Ratio 0.4 (1.0-1.7) Lipase 59 U/L (73-393) White Blood Count 11.8 x10^3/uL (4.0-11.0) 11.6 x10^3/uL (4.0-11.0) Red Blood Count 4.67 x10^6/uL (4.30-5.70) 4.56 x10^6/uL (4.30-5.70) Hemoglobin 12.5 g/dL (13.0-17.5) 12.0 g/dL (13.0-17.5) Hematocrit 38.4 % (39.0-53.0) 37.5 % (39.0-53.0) Mean Corpuscular Volume 82 fL (79-100) 82 fL (79-100) Mean Corpuscular Hemoglobin 27 pg (25-35) 26 pg (25-35) Mean Corpuscular Hemoglobin Concent 33 g/dL (31-37) 32 g/dL (31-37) Red Cell Distribution Width 15.4 % (11.5-14.5) 15.0 % (11.5-14.5) Platelet Count 322 x10^3/uL (140-400) 316 x10^3/uL (140-400) Neutrophils (%) (Auto) 70 % (31-73) 63 % (31-73) Lymphocytes (%) (Auto) 15 % (24-48) 19 % (24-48) Monocytes (%) (Auto) 11 % (0-9) 12 % (0-9) Eosinophils (%) (Auto) 4 % (0-3) 5 % (0-3) Basophils (%) (Auto) 1 % (0-3) 1 % (0-3) Neutrophils # (Auto) 8.3 x10^3/uL (1.8-7.7) 7.3 x10^3/uL (1.8-7.7) Lymphocytes # (Auto) 1.7 x10^3/uL (1.0-4.8) 2.2 x10^3/uL (1.0-4.8) Monocytes # (Auto) 1.3 x10^3/uL (0.0-1.1) 1.4 x10^3/uL (0.0-1.1) Eosinophils # (Auto) 0.4 x10^3/uL (0.0-0.7) 0.6 x10^3/uL (0.0-0.7) Basophils # (Auto) 0.1 x10^3/uL (0.0-0.2) 0.1 x10^3/uL (0.0-0.2) Assessment and Plan Assessmemt and Plan Problems Medical Problems: (1) Generalized weakness Status: Acute Comment Review of Relevant I have reviewed the following items sal (where applicable) has been applied. Medications: Current Medications Medications (Trade) Dose Ordered Sig/Sharon Route PRN Reason Start Time Stop Time Status Last Admin Dose Admin Sodium Chloride 1,000 ml @ 1,000 mls/hr 1X ONCE IV 05/21/20 16:30 05/21/20 17:29 DC 05/21/20 17:00 Piperacillin Sod/ Tazobactam Sod 3.375 gm/Sodium Chloride 50 ml @ 100 mls/hr Q6HRS IV 05/21/20 20:00 05/22/20 05:07 Sodium Chloride 1,000 ml @ 30 mls/hr Q24H IV 05/21/20 22:45 05/22/20 22:44 05/22/20 00:59 Hydroxyzine HCl (Atarax) 50 mg PRN Q4HRS PRN PO ITCHING 05/22/20 00:00 05/22/20 00:58 Levothyroxine Sodium (Synthroid) 88 mcg DAILY06 PO 05/22/20 06:00 05/22/20 06:07 Tramadol HCl (Ultram) 50 mg PRN Q6HRS PRN PO MODERATE PAIN 4-6 05/21/20 23:45 05/22/20 00:58 Images: CXR: Linear bibasilar opacities, unchanged. No pleural effusion. No pneumothorax. Normal heart size. Left hilar calcified lymph nodes and calcified left midlung pulmonary nodule, likely prior granulous disease. Sclerotic lesion within the scapula, unchanged. Impression: 1. Mild bibasilar linear atelectasis. 2. Left scapula sclerotic lesion, unchanged. If persistent clinical concern, bone scan can better evaluate depending on clinical history. Justifications for Admission Other Justification ARIADNE RICHARDS MD May 22, 2020 08:16
[2020-05-22] MEDS ORDERED: ONDANSETRON PF 4 MG/2 ML VIAL. IV PRN (09:30)
--- NOTE | 2020-05-22 09:59 | CONS ---
DATE OF CONSULTATION: 05/22/2020 REQUESTING PHYSICIAN: Santhosh Kolb DO REASON FOR CONSULTATION: Bullous pemphigoid, rule out infection. HISTORY OF PRESENT ILLNESS: This is a 69-year-old gentleman with a history of bullous pemphigoid. The patient has been struggling with this disease for 11 years, although interestingly, he is not seeing any loading unit operator powder charging. Apparently, he had long time ago a loading unit operator powder charging and then he left, so the patient has not seen anybody since then. The patient has been weak and what he says that "his doctor asked him to come in." The patient denies any fever, denies any nausea, vomiting, or diarrhea. Denies any chest pain, shortness of breath, abdominal pain, urinary symptoms or bowel symptoms. PAST MEDICAL HISTORY: Positive for bullous pemphigoid, hypertension, hypothyroidism. SOCIAL HISTORY: Negative for smoking, alcohol or illicit drug use. ALLERGIES: LISTED ALLERGIC TO MORPHINE AND TYLENOL. CURRENT MEDICATIONS: The patient is started on Zosyn. REVIEW OF SYSTEMS: As per HPI, all other systems reviewed are negative. PHYSICAL EXAMINATION: GENERAL: Alert, oriented gentleman, not in distress. VITAL SIGNS: Stable, afebrile. HEENT: NAD. NECK: Supple, no JVP, no lymphadenopathy. LUNGS: Clear. HEART: S1, S2 regular. ABDOMEN: Soft, nontender, no organomegaly. EXTREMITIES: No edema, cyanosis. SKIN: The patient has extensive skin lesions with large blisters, some are broken and some are intact all over the body. There are no obvious signs of secondary infection. NEUROLOGIC: The patient is alert, awake and appropriate. No focal neurologic deficit. LABORATORY DATA: White count is 11.8. BUN and creatinine is 14 and 1.5. Chest x-ray, left scapula sclerotic lesion unchanged, bibasilar atelectasis. IMPRESSION: 1. Severe or extensive bullous pemphigoid. 2. Slight leukocytosis. 3. Hypertension. 4. Hypothyroidism. 5. Debility. RECOMMENDATIONS: We do not see the need for Zosyn, we will discontinue. Steroid cream or systemic steroid is recommended and the patient needs to see a loading unit operator powder charging for more definitive management. Thank you very much, Dr. Kolb, for giving me the opportunity to participate in this patient's care. CIPRIANO ARRIAGA MD DR: NILDA/julian JOB#: [id number] / [id number]
--- NOTE | 2020-05-22 10:40 | EKG ---
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
[2020-05-22 11:00] VITALS: BP 107/55
--- NOTE | 2020-05-22 11:38 | NUR ---
SS following for discharge planning. SS reviewed pt chart and discussed with pt RN. Pt is from [facility] and is currently on room air. COVID19 pending. [facility], ; fax [phone]. PT/OT ordered. PT recommended custodial unit. SS met with pt to discuss discharge planning and custodial unit. Pt agreeable to custodial unit and was agreeable to [facility] referral, ; fax [phone]. SS phoned and faxed referral. SS will continue to follow for discharge planning.
[2020-05-22 15:00] VITALS: BP 121/67
--- NOTE | 2020-05-22 15:09 | NUR ---
Wound/Ostomy Care Wound Type/Assessment: Pt is patient of [facility] and is well known to team, pt assessed by Paige Angulo APRN. Bulbous pemphigoid open and closed blisters on BLE, BUE and trunk. Treatment Recommendations/Plan: Left WEIGHT TRAINING INSTRUCTOR to dry out due to pain with dressing changes. Education provided: Pt educated on PU prevention. Offloading surface/device: none Recommended Referrals/Tests: none Discharge Recommendations for dressings: Leave JIM
[2020-05-22] MEDS: MULTIVITAMIN with MINERAL TABLET. PO SCH (15:29)
[2020-05-22] MEDS: ASCORBIC ACID 500 MG TABLET PO SCH (15:29)
[2020-05-22] MEDS: hydrOXYzine 25 MG TABLET PO SCH ×2 (15:30→20:07)
--- NOTE | 2020-05-22 15:51 | PDOC2 ---
Chief Complaint: Chief Complaint: Extensive bullous pemphigoid Vital Signs: Vital Signs: Vital Signs Date Time Temp Pulse Resp B/P (MAP) Pulse Ox O2 Delivery O2 Flow Rate FiO2 05/21/20 16:10 98.1 55 24 122/74 (90) 97 Room Air 98.1 Vital Signs Date Time Temp Pulse Resp B/P (MAP) Pulse Ox O2 Delivery O2 Flow Rate FiO2 05/22/20 15:30 19 97 Room Air 05/22/20 11:00 97.7 85 107/55 (72) 97.7 Allergies: Allergies: Allergies Coded Allergies Type Severity Reaction Last Updated Verified acetaminophen Allergy Intermediate 07/13/18 Yes morphine Allergy Intermediate 07/13/18 Yes shellfish derived Allergy Intermediate 07/13/18 Yes Medications: Home Meds Active Scripts Doxycycline Hyclate (DOXYCYCLINE HYCLATE) 100 Mg Capsule, 1 CAP PO BID for bullosu pemphigoid, #14 CAP Prov:ALIREZA FLETCHER MD 06/04/19 Tramadol Hcl (TRAMADOL HCL) 50 Mg Tablet, 50 MG PO PRN Q6HRS PRN for PAIN, #30 TAB Prov:ALIREZA FLETCHER MD 06/04/19 Reported Medications Levothyroxine Sodium (LEVOTHYROXINE SODIUM) 88 Mcg Tablet, 88 MCG PO DAILYAC for THYROID SUPPLEMENT, #30 TAB 0 Refills 05/21/20 Pantoprazole Sodium (PANTOPRAZOLE SODIUM ) 40 Mg Tablet.dr, 40 MG PO DAILYAC for GERD, TAB 05/21/20 Hydroxyzine Hcl (HYDROXYZINE HCL) 25 Mg Tablet, 50 MG PO Q4HRS for itching, TAB 05/21/20 PCP: PCP: Dr. Kolb Pain: Pain Location: Other (Patient complains of general pain 6 out of 10. Patient states that nothing relieves the pain. Patient states that pain is worsened with cleansing and movement.) Scale (pain): 9 Wound Status: Being Treated (Patient with 11-year history of bullous pemphigoid. Patient has been evaluated by mule operator in the past who has confirmed the diagnosis patient. Patient has been treated in the past with methotrexate without improvement. Patient has also been treated with topical and oral steroids which did not improve symptoms. Patient has been followed in our wound care clinic most recently for bullous pemphigoid ulcerations of his lower extremities. Through our clinic patient had little response to include clobetasol topically. ) PMH Positive for bullous pemphigoid, hypertension, hypothyroidism. PSH Patient is and lives at home. Patient is independent with ADLs. Patient denies tobacco use, illicit drug use or alcohol use. Review of Systems: Patient complains of generalized pain 6 out of 10. Patient states that any movement makes the pain worse. Patient also with complaints of extreme p ruritus. Patient states that he has a good appetite and has been eating and drinking well without nausea, vomiting or diarrhea. Patient denies cough or shortness of breath. Patient states that he is having difficulty sleeping secondary to pain and itching. Physical Exam Patient awake and alert 69-year-old male who appears discomfortable. Patient is pleasant in conversation and is a good historian. Respirations are even and unlabored. Patient is on room air not requiring supplemental oxygen. Abdomen is soft, nondistended and nontender to palpation patient has bullous' and vesicles, at varying stages, on his entire body surface sparing his face. Surrounding tissue with blanchable erythema. A/P Extensive bullous pemphigoid -Present for 11+ years with symptoms waxing and waning -Diagnosis has been confirmed through dermatology in the past -Patient was on 2 years of methotrexate without relief of symptoms -Patient has had oral and topical steroids with little to no relief of symptoms in the past. -Initiate Pepcid for pruritus -Change hydroxyzine from PRN to scheduled -Dressings extremely painful to the lower extremities. Therefore may leave open to air and monitor while patient is inpatient. MATEUSZ SONG CHAIR May 22, 2020 15:51
--- NOTE | 2020-05-22 16:55 | NUR ---
Have reviewed documentation by web design intern and made changes as needed
[2020-05-22 19:42] VITALS: BP 134/67
[2020-05-22] MEDS: FAMOTIDINE 20 MG TABLET. PO SCH (21:20)
[2020-05-22 22:31] VITALS: BP 131/71
[2020-05-23] MEDS: hydrOXYzine 25 MG TABLET PO SCH ×7 (00:23→23:44)
[2020-05-23 02:50] VITALS: BP 112/70
[2020-05-23] MEDS: LEVOTHYROXINE 88 MCG TABLET PO SCH (06:07)
[2020-05-23 07:19] VITALS: BP 117/66
--- NOTE | 2020-05-23 08:20 | PDOC ---
Infectious Disease Note Subjective Subjective pt says he is feeling better ROS ROS no n/v/d/sob Vital Sign Vital Signs Vital Signs Date Time Temp Pulse Resp B/P (MAP) Pulse Ox O2 Delivery O2 Flow Rate FiO2 05/23/20 07:19 97.8 88 117/66 (83) 93 Room Air 97.8 05/22/20 22:31 18 Physical Exam PHYSICAL EXAM GENERAL: Alert, oriented gentleman, not in distress. VITAL SIGNS: Stable, afebrile. HEENT: NAD. NECK: Supple, no JVP, no lymphadenopathy. LUNGS: Clear. HEART: S1, S2 regular. ABDOMEN: Soft, nontender, no organomegaly. EXTREMITIES: No edema, cyanosis. SKIN: The patient has extensive skin lesions with large blisters, some are broken and some are intact all over the body. There are no obvious signs of secondary infection. NEUROLOGIC: The patient is alert, awake and appropriate. No focal neurologic deficit. Labs Micro Microbiology 05/21/20 Blood Culture - Preliminary, Resulted NO GROWTH AFTER 1 DAY Objective Assessment IMPRESSION: 1. Severe or extensive bullous pemphigoid. 2. Slight leukocytosis. 3. Hypertension. 4. Hypothyroidism. 5. Debility. Plan Plan of Care pt admited that he cannot see, he cannot cook, unable to take care of him, need more help ie alf care facility steroid cream Dermatology followup CIPRIANO ARRIAGA MD May 23, 2020 08:20
[2020-05-23 08:40] LABS: BASO # 0.1 x10^3/uL (0.0-0.2); BASO % 1 % (0-3); EOS # 0.4 x10^3/uL (0.0-0.7); EOS % 3 % (0-3); HEMATOCRIT 40.5 % (39.0-53.0); HEMOGLOBIN 13.1 g/dL (13.0-17.5); LYMPH # 1.7 x10^3/uL (1.0-4.8); LYMPH % 12 % (24-48); MEAN CORPUSCULAR HEMOGLOBIN 27 pg (25-35); MEAN CORPUSCULAR HGB CONC 32 g/dL (31-37); MEAN CORPUSCULAR VOLUME 83 fL (79-100); MONO # 1.4 x10^3/uL (0.0-1.1); MONO % 10 % (0-9); NEUT # 10.4 x10^3/uL (1.8-7.7); NEUT % 75 % (31-73); PLATELET COUNT 336 x10^3/uL (140-400); RED BLOOD COUNT 4.87 x10^6/uL (4.30-5.70); RED CELL DISTRIBUTION WIDTH 15.5 % (11.5-14.5); WHITE BLOOD COUNT 13.9 x10^3/uL (4.0-11.0)
[2020-05-23 08:54] LABS: CALCIUM 8.4 mg/dL (8.5-10.1); CREATININE 1.8 mg/dL (0.7-1.3); GFR 37.4; POTASSIUM 3.7 mmol/L (3.5-5.1)
[2020-05-23 10:41] VITALS: BP 112/94
[2020-05-23] MEDS: FAMOTIDINE 20 MG TABLET. PO SCH ×2 (10:42→20:42)
[2020-05-23] MEDS: ASCORBIC ACID 500 MG TABLET PO SCH (10:42)
[2020-05-23] MEDS: MULTIVITAMIN with MINERAL TABLET. PO SCH (10:42)
[2020-05-23] MEDS: PANTOPRAZOLE 40 MG TABLET.DR. PO SCH (10:42)
--- NOTE | 2020-05-23 12:17 | PDOC ---
[employer] PROGRESS NOTE Date of Service DOS: DATE: 05/23/20 TIME: 12:14 Chief Complaint Chief Complaint Weakness Diffuse skin lesions due to Bullous pemphigoid. History of Present Illness History of Present Illness 05/23/2020 Pt seem and examined. Discussed with RN and CM. Discuss self care ability and safety concerns, pt willing to go to SNU. Mr Leonard is a 69yo M w/ PMHx bullous pemphigoid, HTN, hypothyroidism, mild cognitive impairment, ex-smoker presented from his assisted living facility for progressive weakness. He has been suffering from severe bullous pemphigoid for about 11 years. He has numerous blisters all over his body. His skin is peeling. He has some malodorous lesions. He has been living in assisted care. He is not eating or drinking and has not been able to take care of himself. Sodium 133. He is still very weak. Most of his lesions are foul-smelling. Afebrile. Vitals/I&O Vitals/I&O: Vital Signs Date Time Temp Pulse Resp B/P (MAP) Pulse Ox O2 Delivery O2 Flow Rate FiO2 05/23/20 10:41 98.0 92 112/94 (100) 97 Room Air 98.0 05/22/20 22:31 18 I & O 05/22/20 05/22/20 05/23/20 15:00 23:00 07:00 Intake Total 360 ml Output Total 0 ml 500 ml Balance 0 ml 360 ml -500 ml Physical Exam General: Alert Heart: Regular rate, Normal S1, Normal S2 Lungs: Clear Abdomen: Normal bowel sounds Extremities: No cyanosis, No edema, Normal pulses Skin: Other (Extensive skin lesions with large blisters, some are broken or intact. No acute signs of infection. ) Labs Labs: Laboratory Tests Test 05/23/20 07:55 White Blood Count 13.9 x10^3/uL (4.0-11.0) Red Blood Count 4.87 x10^6/uL (4.30-5.70) Hemoglobin 13.1 g/dL (13.0-17.5) Hematocrit 40.5 % (39.0-53.0) Mean Corpuscular Volume 83 fL (79-100) Mean Corpuscular Hemoglobin 27 pg (25-35) Mean Corpuscular Hemoglobin Concent 32 g/dL (31-37) Red Cell Distribution Width 15.5 % (11.5-14.5) Platelet Count 336 x10^3/uL (140-400) Neutrophils (%) (Auto) 75 % (31-73) Lymphocytes (%) (Auto) 12 % (24-48) Monocytes (%) (Auto) 10 % (0-9) Eosinophils (%) (Auto) 3 % (0-3) Basophils (%) (Auto) 1 % (0-3) Neutrophils # (Auto) 10.4 x10^3/uL (1.8-7.7) Lymphocytes # (Auto) 1.7 x10^3/uL (1.0-4.8) Monocytes # (Auto) 1.4 x10^3/uL (0.0-1.1) Eosinophils # (Auto) 0.4 x10^3/uL (0.0-0.7) Basophils # (Auto) 0.1 x10^3/uL (0.0-0.2) Sodium Level 136 mmol/L (136-145) Potassium Level 3.7 mmol/L (3.5-5.1) Chloride Level 101 mmol/L (98-107) Carbon Dioxide Level 27 mmol/L (21-32) Anion Gap 8 (6-14) Blood Urea Nitrogen 14 mg/dL (8-26) Creatinine 1.8 mg/dL (0.7-1.3) Estimated GFR (Cockcroft-Gault) 37.4 Glucose Level 91 mg/dL (70-99) Calcium Level 8.4 mg/dL (8.5-10.1) Review of Systems Review of Systems: Moderate amount pain assosciated with skin lesions. No fever. Assessment and Plan Assessmemt and Plan Problems Medical Problems: (1) Generalized weakness Status: Acute Assessment: Bullous pemphigoid. Weakness Hypertension Hypothyroidism. Plan: Wound care Cardiac monitoring. Pain management. Home Meds. SNU pending, pt struggles with daily activities at home. Follow up with Dermatology recommended. Comment Review of Relevant I have reviewed the following items sal (where applicable) has been applied. Medications: Current Medications Medications (Trade) Dose Ordered Sig/Sharon Route PRN Reason Start Time Stop Time Status Last Admin Dose Admin Multivitamins (Thera M Plus) 1 tab DAILY PO 05/22/20 14:00 05/23/20 10:42 Ascorbic Acid (Vitamin C) 500 mg DAILY PO 05/22/20 14:00 05/23/20 10:42 Hydroxyzine HCl (Atarax) 50 mg Q4HRS PO 05/22/20 16:00 05/23/20 10:45 Famotidine (Pepcid) 20 mg BID PO 05/22/20 21:00 05/23/20 10:42 Justifications for Admission Other Justification BRENDAN NICOLE III DO May 23, 2020 12:17
[2020-05-23] MEDS ORDERED: VITS A & D/LANOLIN TOPICAL OINTMENT 42GM TUBE. TP PRN (14:30)
[2020-05-23 14:37] VITALS: BP 109/72
[2020-05-23 19:43] VITALS: BP 122/58
[2020-05-23 23:34] VITALS: BP 124/74
[2020-05-24 02:33] VITALS: BP 114/80
[2020-05-24] MEDS: hydrOXYzine 25 MG TABLET PO SCH ×3 (04:10→12:00)
[2020-05-24] MEDS: LEVOTHYROXINE 88 MCG TABLET PO SCH (04:10)
[2020-05-24 07:31] VITALS: BP 96/58
[2020-05-24 09:15] LABS: BASO # 0.1 x10^3/uL (0.0-0.2); BASO % 1 % (0-3); EOS # 0.5 x10^3/uL (0.0-0.7); EOS % 4 % (0-3); HEMATOCRIT 39.8 % (39.0-53.0); HEMOGLOBIN 12.9 g/dL (13.0-17.5); LYMPH # 2.3 x10^3/uL (1.0-4.8); LYMPH % 18 % (24-48); MEAN CORPUSCULAR HEMOGLOBIN 27 pg (25-35); MEAN CORPUSCULAR HGB CONC 32 g/dL (31-37); MEAN CORPUSCULAR VOLUME 83 fL (79-100); MONO # 1.3 x10^3/uL (0.0-1.1); MONO % 10 % (0-9); NEUT # 8.5 x10^3/uL (1.8-7.7); NEUT % 67 % (31-73); PLATELET COUNT 355 x10^3/uL (140-400); RED BLOOD COUNT 4.83 x10^6/uL (4.30-5.70); RED CELL DISTRIBUTION WIDTH 15.6 % (11.5-14.5); WHITE BLOOD COUNT 12.8 x10^3/uL (4.0-11.0)
[2020-05-24 09:19] LABS: CALCIUM 8.3 mg/dL (8.5-10.1); CREATININE 1.7 mg/dL (0.7-1.3); GFR 39.9; POTASSIUM 3.4 mmol/L (3.5-5.1)
[2020-05-24] MEDS: ASCORBIC ACID 500 MG TABLET PO SCH (09:42)
[2020-05-24] MEDS: PANTOPRAZOLE 40 MG TABLET.DR. PO SCH (09:42)
[2020-05-24] MEDS: MULTIVITAMIN with MINERAL TABLET. PO SCH (09:42)
[2020-05-24] MEDS: FAMOTIDINE 20 MG TABLET. PO SCH (09:42)
[2020-05-24] MEDS: traMADol 50 MG TABLET PO PRN (09:43)
[2020-05-24 10:29] VITALS: BP 120/57
--- NOTE | 2020-05-24 11:27 | PDOC ---
[employer] PROGRESS NOTE Date of Service DOS: DATE: 05/24/20 TIME: 11:25 Chief Complaint Chief Complaint Weakness Diffuse skin lesions due to Bullous pemphigoid. History of Present Illness History of Present Illness 05/24/2020 Pt seen and examined. Discussed with RN and CM. DC to SNU. 05/23/2020 Pt seen and examined. Discussed with RN and CM. Discuss self care ability and safety concerns, pt willing to go to SNU. Mr Leonard is a 69yo M w/ PMHx bullous pemphigoid, HTN, hypothyroidism, mild cognitive impairment, ex-smoker presented from his assisted living facility for progressive weakness. He has been suffering from severe bullous pemphigoid for about 11 years. He has numerous blisters all over his body. His skin is peeling. He has some malodorous lesions. He has been living in assisted care. He is not eating or drinking and has not been able to take care of himself. Sodium 133. He is still very weak. Most of his lesions are foul-smelling. Afebrile. Vitals/I&O Vitals/I&O: Vital Signs Date Time Temp Pulse Resp B/P (MAP) Pulse Ox O2 Delivery O2 Flow Rate FiO2 05/24/20 10:29 97.5 96 16 120/57 (78) 100 Room Air 97.5 I & O 05/23/20 05/23/20 05/24/20 14:59 22:59 06:59 Intake Total 240 ml 240 ml 840 ml Output Total 0 ml Balance 240 ml 240 ml 840 ml Physical Exam General: Alert, Cooperative Heart: Regular rate, Normal S1, Normal S2 Lungs: Clear Abdomen: Normal bowel sounds Extremities: No cyanosis, No edema, Normal pulses Skin: Other (Extensive skin lesions with large blisters, some are broken or intact. No acute signs of infection. ) Labs Labs: Laboratory Tests Test 05/24/20 08:50 White Blood Count 12.8 x10^3/uL (4.0-11.0) Red Blood Count 4.83 x10^6/uL (4.30-5.70) Hemoglobin 12.9 g/dL (13.0-17.5) Hematocrit 39.8 % (39.0-53.0) Mean Corpuscular Volume 83 fL (79-100) Mean Corpuscular Hemoglobin 27 pg (25-35) Mean Corpuscular Hemoglobin Concent 32 g/dL (31-37) Red Cell Distribution Width 15.6 % (11.5-14.5) Platelet Count 355 x10^3/uL (140-400) Neutrophils (%) (Auto) 67 % (31-73) Lymphocytes (%) (Auto) 18 % (24-48) Monocytes (%) (Auto) 10 % (0-9) Eosinophils (%) (Auto) 4 % (0-3) Basophils (%) (Auto) 1 % (0-3) Neutrophils # (Auto) 8.5 x10^3/uL (1.8-7.7) Lymphocytes # (Auto) 2.3 x10^3/uL (1.0-4.8) Monocytes # (Auto) 1.3 x10^3/uL (0.0-1.1) Eosinophils # (Auto) 0.5 x10^3/uL (0.0-0.7) Basophils # (Auto) 0.1 x10^3/uL (0.0-0.2) Sodium Level 136 mmol/L (136-145) Potassium Level 3.4 mmol/L (3.5-5.1) Chloride Level 101 mmol/L (98-107) Carbon Dioxide Level 28 mmol/L (21-32) Anion Gap 7 (6-14) Blood Urea Nitrogen 17 mg/dL (8-26) Creatinine 1.7 mg/dL (0.7-1.3) Estimated GFR (Cockcroft-Gault) 39.9 Glucose Level 100 mg/dL (70-99) Calcium Level 8.3 mg/dL (8.5-10.1) Review of Systems Review of Systems: No fever. No cough. Assessment and Plan Assessmemt and Plan Problems Medical Problems: (1) Generalized weakness Status: Acute Assessment: Bullous pemphigoid. Weakness Hypokalemia. Hypothyroidism. Plan: Wound care. Pain management. DC to SNU. PT OT Home Meds. Follow up with dermatology. Oral Abx. Comment Review of Relevant I have reviewed the following items sal (where applicable) has been applied. Justifications for Admission Other Justification BRENDAN NICOLE III DO May 24, 2020 11:27
[2020-05-24] MEDS ORDERED: POTASSIUM CHLORIDE 20 MEQ TABLET.ER. PO ONE (11:30)
[2020-05-24] MEDS ORDERED: MULT1TAB90 PO (11:57)
[2020-05-24] MEDS ORDERED: HYDR25TA PO (11:57)
[2020-05-24] MEDS ORDERED: FAMO20TA5 PO (11:57)
--- NOTE | 2020-05-24 11:58 | SNU/HH DC ---
DISCHARGE ORDERS DISCHARGE INFORMATION: FINAL DIAGNOSIS Problems Medical Problems: (1) Generalized weakness Status: Acute CONDITION ON DISCHARGE: Stable CODE STATUS: Code Status: Full ASSISTED: SNF STAY <30 DAYS: Yes HOSPICE: HOSPICE: No HOSPICE EVAL & TREAT: No LTAC: ADMIT TO LTAC: No POST DISCHARGE ORDERS: ACTIVITY ORDERS: No restrictions DIET AFTER DISCHARGE: Regular WOUND/INCISION CARE: Keep wound/cast CDI CHECKS AFTER DISCHARGE: CHECKS AFTER DISCHARGE: Check blood press - daily TREATMENT/EQUIPMENT ORDERS: ADAPTIVE EQUIPMENT NEEDED: None Physical Therapy For: Evalulation/Treatment Occupational Therapy For: Evaluation/Treatment Speech Language Pathology For: Evaluation/Treatment DISCHARGE MEDICATIONS: Home Meds Active Scripts Doxycycline Hyclate (DOXYCYCLINE HYCLATE) 100 Mg Capsule, 1 CAP PO BID for bullosu pemphigoid, #14 CAP Prov:ALIREZA FLETCHER MD 06/04/19 Tramadol Hcl (TRAMADOL HCL) 50 Mg Tablet, 50 MG PO PRN Q6HRS PRN for PAIN, #30 TAB Prov:ALIREZA FLETCHER MD 06/04/19 Reported Medications Levothyroxine Sodium (LEVOTHYROXINE SODIUM) 88 Mcg Tablet, 88 MCG PO DAILYAC for THYROID SUPPLEMENT, #30 TAB 0 Refills 05/21/20 Pantoprazole Sodium (PANTOPRAZOLE SODIUM ) 40 Mg Tablet.dr, 40 MG PO DAILYAC for GERD, TAB 05/21/20 Hydroxyzine Hcl (HYDROXYZINE HCL) 25 Mg Tablet, 50 MG PO Q4HRS for itching, TAB 05/21/20 BRENDAN NICOLE III DO May 24, 2020 11:58
[2020-05-24] MEDS ORDERED: AMOX1TAB11 PO (13:26)
--- NOTE | 2020-05-24 14:00 | DS ---
DATE OF DISCHARGE: 05/24/2020 ADMISSION DIAGNOSES: Bullous pemphigoid progression of disease with severe skin lesions, possible infections, hypotension, probable adult failure to thrive. DISCHARGE DIAGNOSES: Progression of disease with bullous pemphigoid, hypertension, resolving hypotension, probable memory issues (it seemed to be worse when he first got here, but it seems to be improving now), previous tobacco abuse, debility, probable early failure to thrive. CONSULTS: Dr. Myke De Dios and the Wound Care Team. PROCEDURES: None. HOSPITAL COURSE: The patient is a pleasant middle-aged male who basically is trying to live on his own, but he has severe bullous pemphigoid. He has got blisters everywhere and they tend to get very red and painful and they drain, sometimes they have become infected. He has had this for about 11 years. The patient is not doing well at home. We brought him in. We did some aggressive wound care, gave him some empiric IV antibiotics. Consulted Wound Care Team and Infectious Disease. Over the past few days, he is improving, but he is quite debilitated. We are going to discharge to custodial at [facility]. DISPOSITION: Group Home at [facility]. ACTIVITY: As tolerated. DIET: Low sodium. MEDICATIONS: Please see the MRAD. I left a prescription for Augmentin 875 p.o. b.i.d. We also have him on Pepcid 20 p.o. b.i.d., hydroxyzine 25 mg p.o. q.4 hours, multiple vitamins. LONG-TERM PROGNOSIS: Guarded. TOTAL TIME: 32 minutes. BRENDAN NICOLE DO DR: MYLES/julian JOB#: [id number] / [id number]
--- NOTE | 2020-05-24 14:46 | NUR ---
Pt discharged to [facility] with all belongings. Report called to [facility].
[2020-05-24] MEDS ORDERED: AMOXICILLIN/K CLAV 875/125MG TABLET. PO SCH (21:00)
--- NOTE | 2020-05-26 13:37 | DS ---
DATE OF DISCHARGE: 05/24/2020 ADMISSION DIAGNOSES: Weakness and bullous pemphigus. DISCHARGE DIAGNOSES: Resolving weakness, chronic bullous pemphigus. HOSPITAL COURSE: The patient is a pleasant 69-year-old male who has bullous pemphigus. Basically, he is failing at home. We admitted the patient. We did wound care, did some physical therapy, occupational therapy, IV antibiotics. Over the next few days, he returned to his baseline, but was still quite weak. We discharged to [facility]. DISPOSITION: alf. ACTIVITY: As tolerated. DIET: Low sodium. MEDICATIONS: Please see the MRAD. TOTAL TIME: 39 minutes. BERNDAN NICOLE DO DR: MYLES/julian JOB#: [id number] / [id number]
== END 2020-05-24 14:30 | DRG 595 ==
LOC: ER 16:10 → ED HOLD 17:50 → 2 SOUTH 22:30 → OBSVTOIN 05-22 09:24
PROVIDERS: ADMIT Internal Medicine; ATTEND Internal Medicine
DX: L12.0 Bullous pemphigoid (principal); E43 Unspecified severe protein-calorie malnutrition; E87.1 Hypo-osmolality and hyponatremia; J98.11 Atelectasis; Z20.828 Contact with and (suspected) exposure to other viral communicable diseases; N18.9 Chronic kidney disease, unspecified; I12.9 Hypertensive chronic kidney disease with stage 1 through stage 4 chronic kidney disease, or unspecified chronic kidney disease; G31.84 Mild cognitive impairment of uncertain or unknown etiology; I95.9 Hypotension, unspecified; E03.9 Hypothyroidism, unspecified; E87.6 Hypokalemia; D72.829 Elevated white blood cell count, unspecified; Z87.891 Personal history of nicotine dependence; Z83.3 Family history of diabetes mellitus; Z68.27 Body mass index [BMI] 27.0-27.9, adult; Z88.6 Allergy status to analgesic agent; Z88.5 Allergy status to narcotic agent; Z91.013 Allergy to seafood
CPT/HCPCS: 36415; 71045; 80048; 80053; 82550; 83605; 83690; 84145; 84484; 85025; 85610; 85730; 86140; 87040; 93005; 96360; 99285; G0378; G0379; J2543; J7030; 97116-GP; 97530-GP; 97535-GO; U0003-CS

== ENCOUNTER 2020-06-17 10:48 | Outpatient (CLI) | payer MEDICARE, OTHER ==
[~2020-06-17] VITALS: Ht 180.3 cm; Wt 88.5 kg
[~2020-06-17 10:48] MED LIST changes: +AMOX1TAB11 PO; +FAMO20TA5 PO; +HYDR25TA PO; +LEVO88TA4 PO; +MULT1TAB90 PO; +PANT40TA77 PO
[2020-06-17] MEDS ORDERED: LIDOCAINE 1%/EPI 1:100,000 20 ML VIAL. ONE (11:20)
[2020-06-17] MEDS ORDERED: HEPARIN PF 500 UNIT/5 ML DISP.SYRIN. IVP ONE ×2 (11:26→11:30)
[2020-06-17] MEDS ORDERED: LIDOCAINE 1%/EPI 1:100,000 20 ML VIAL. INJ ONE (11:30)
--- NOTE | 2020-06-17 12:10 | NUR ---
Patient wheeled down to outpatient entrance for transport van to take patient back to [facility]. Spoke with Jeferson MENDES regarding patient's powerline placed in his right chest, line was heparinized and instructions went with patient regarding care. Patient verbalized that his legs hurt and he was very cold.
--- NOTE | 2020-06-17 16:09 | RAD ---
Procedure: Ultrasound and fluoroscopically guided placement of tunnel central venous catheter. 06/17/2020 2:05 PM Clinical Indication: USP ANTIBIOTICS (a power line was placed in lieu of a PICC line given extensive lesions, on the patient's bilateral upper extremities) Fluoroscopy time: 0.2 minutes Dose area product: 0.4 Gycm2 Consent: The procedure was explained in its entirety to the patient or the patients designated jewelry sales representative by a member of the treatment team, including a discussion of the risks, benefits and commonly accepted alternatives to the procedure, as well as the expected consequences of no therapy whatsoever. Discussion of the risks included, but was not limited to, those that are most frequent and those that are rare but possibly severe or life-threatening, as well as the possibility of unforeseen complications. Sterility: All elements of maximal sterile barrier technique including the use of a cap, mask, sterile gown, sterile gloves, large sterile sheet, appropriate hand hygiene, and 2% chlorhexidine for cutaneous antisepsis (or acceptable alternative antiseptic per current guidelines) were followed for this procedure. Technique and Findings: Following informed consent, the patient was prepped and draped in the usual sterile fashion. Ultrasound interrogation of the right neck revealed patency and compressibility of the right internal jugular vein. A 21-gauge micropuncture was then used to gain access to this vein under ultrasound guidance. A hard copy ultrasound image was recorded. The needle was exchanged over a wire for a sheath. A small incision was made several centimeters inferior to the right clavicle. A power line was trimmed to length, advanced from the small skin incision to the venotomy site, and then advanced through a peel-away sheath to the level of the cavoatrial junction. Catheter was found to flush and aspirate normally. Catheter was secured in place with 2-0 Prolene suture and a sterile dressing was applied. Catheter was packed with heparin per protocol. The neck dermatotomy was closed with Dermabond. No immediate complications were identified. Impression: Successful ultrasound and fluoroscopically guided placement of a right internal jugular tunneled central venous catheter
== END 2020-06-17 12:00 ==
LOC: INTRAD 10:48
PROVIDERS: ATTEND Internal Medicine
DX: Z45.2 Encounter for adjustment and management of vascular access device (principal); I12.9 Hypertensive chronic kidney disease with stage 1 through stage 4 chronic kidney disease, or unspecified chronic kidney disease; N18.9 Chronic kidney disease, unspecified; E03.9 Hypothyroidism, unspecified; F17.210 Nicotine dependence, cigarettes, uncomplicated; Z79.2 Long term (current) use of antibiotics; Z88.8 Allergy status to other drugs, medicaments and biological substances; Z79.899 Other long term (current) drug therapy; Z83.3 Family history of diabetes mellitus
CPT/HCPCS: 36558; 76937; 77001; C1751; C1892; J1642; J3490